=== PATIENT | male | born 1940 | race Caucasian/White ===

== ENCOUNTER 2020-04-05 06:34 | Day surgery (SDC) | payer MEDICARE, SELFPAY ==
[2020-04-05 07:00] VITALS: BP 145/65; PULSE 63; RESP 18; TEMP 36.5; O2SAT 100; BMI 26.7
[2020-04-05] MEDS: Lactated Ringers 1,000 ML 100 ML IV (07:10)
[2020-04-05] MEDS: Cefazolin 2 GM in 0.9% Normal Saline 100 ML IV (08:53)
--- NOTE | 2020-04-05 09:24 | HP.PCM_ITS ---
History of Present Illness Date of Admission: 04/05/20 Chief Complaint: Obstructing right ureteral calculi multiple right renal calculi The patient is a 80 year old male presents with obstructing stone today we will plan to proceed with right ureteroscopy laser lithotripsy and stent placement Past Medical History Allergies No Known Allergies Allergy (Verified 04/05/20 06:57) Home Medications: Ambulatory Orders Medication Instructions Recorded Ascorbic Acid [Vitamin C] 500 mg PO DAILY@0800 04/04/20 Aspirin [Aspirin EC] 81 mg PO DAILY 04/04/20 Ibuprofen [Motrin] 400 mg PO Q4H PRN PRN 04/04/20 Metoprolol(XL)Succ [Toprol Xl 25 mg PO QHS 04/04/20 (Beta Herve)] Omeprazole Magnesium [Acid Ordnance Technician] 20 mg PO DAILY 04/04/20 Simvastatin 10 mg PO QHS 04/04/20 Surgical History: no surgical history Smoking Status: Never smoker Tobacco Use: Non-smoker Review of Systems Constitutional: Denies: Chills, Fever, Weight Change HEENT: Denies: Head Aches, Sinus Congestion, Sinus Drainage Cardiovascular: Denies: Chest Pain, Palpitations Respiratory: Denies: Cough, Shortness of breath at rest, Sputum production Gastrointestinal: Denies: Abdominal Pain, Nausea, Vomiting Genitourinary: Denies: Dysuria Musculoskeletal: Denies: Joint Pain, Joint Tenderness Skin: Denies: Rash, Wounds Neurological: Denies: Numbness, Tingling, Focal weakness Psychiatric: Denies: Anxiety, Depression, Homicidal Ideations, Suicidal Ideations Hematologic/ Lymphatic: Denies: Easy Bruising, Easy Bleeding VTE Information - Inpt Only VTE Present on Admission: No - Physical Exam Vitals/I&O's: Vital Signs Temp Pulse Resp BP Pulse Ox 97.7 F L 63 18 145/65 H 100 04/05/20 07:00 04/05/20 07:00 04/05/20 07:00 04/05/20 07:00 04/05/20 07:00 Oxygen Delivery Method Room Air Weight: 77.5 kg Body Mass Index (BMI) 26.7 Intake and Output for Last 24 Hours 04/03/20 04/04/20 04/05/20 23:59 23:59 23:59 Intake Total 110 / 110 Balance 110 / 110 General: Alert, Oriented x3, Cooperative HEENT: Atraumatic, PERRLA, EOMI, Normocephalic Neck: Supple, No JVD, Negative Carotid Bruits Lungs: Clear to auscultation, Normal air movement Cardiovascular: Regular rate, No murmurs Abdomen: Bowel Sounds Present, Soft, Non Tender Extremities: No edema, Capillary Refill Less than 3 Seconds Skin: No rashes, No breakdown Musculoskeletal: No Tenderness to Palpation of Joints or Extremities Neurological: Cranial nerves II-XII grossly intact Psych/Mental Status: Normal Affect, Appropriate Laboratory Results 04/04/20 17:05: COVID-19 (ANJU) Negative Current Medications Lactated Ringer's () 1,000 mls @ 100 mls/hr IV .Q10H SMITH Last Admin: 04/05/20 07:10 Dose: 100 mls/hr Documented by: Assessment/Plan Plan for right ureteroscopy laser and stent placement
--- NOTE | 2020-04-05 09:25 | DCINST_ITS ---
Discharge Diet: Light diet - advance as tolerated Discharge Activity: Return to Normal Activity Call your doctor if your incision/area has: Sudden Increased Bleeding Suture Line Care: Avoid Pulling/Pushing, Avoid Pinching/Bending Instructions: Treating Kidney Stones: Ureteroscopic Stone Removal Allergies/Adverse Reactions: Allergies No Known Allergies Allergy (Verified 04/05/20 06:57) Medications to take at Discharge Ascorbic Acid [Vitamin C] 500 mg PO DAILY@0800 04/04/20 Aspirin [Aspirin EC] 81 mg PO DAILY 04/04/20 Ibuprofen [Motrin] 400 mg PO Q4H PRN PRN 04/04/20 Metoprolol(XL)Succ [Toprol Xl (Beta Herve)] 25 mg PO QHS 04/04/20 Omeprazole Magnesium [Acid Production Artist] 20 mg PO DAILY 04/04/20 Simvastatin 10 mg PO QHS 04/04/20 Primary Care Physician: Buddy Bull MD [Primary Care Provider] - Test Results: Test results from this visit will be discussed in further detail at your follow- up appointment, if applicable. Please Follow Up With: Jem Henriquez MD When: in 2 weeks, please call to make an appointment.
[2020-04-05 09:33] VITALS: BP 123/74; BP 145/65; PULSE 73; RESP 16; TEMP 36.6; O2SAT 95
--- NOTE | 2020-04-05 09:37 | PCM.OPRPT ---
Report of Operation Date of Procedure: 04/05/20 Pre-Operative Diagnosis: Right obstructing ureteral calculi multiple right renal calculi Post-Operative Diagnosis: The same Surgery/Procedure Performed:: Cystoscopy, balloon dilation of the right ureter, retrograde pyelogram interpretation fluoroscopic images, right ureteroscopy laser lithotripsy of stone and right stent placement Description of Surgical Findings:: 80-year-old male who I saw yesterday in the office for severe pain in the right side from obstructing stone was taken to surgery today to relieve the obstruction and place a stent also going to possibly try laser the stones if it is feasible. Patient was taken back to the operating room at the smooth induction of general anesthesia he was placed in dorsolithotomy position, penis and testicles are prepped and draped in usual sterile fashion, went into the bladder with a 21 [place]amese rigid cystourethroscope, the entire length the urethra was normal the prostate was normal no obstruction inside the bladder there are no tumors or stones the trigone was normal identified the right ureteral orifice and cannulated the wire up the right orifice I then advanced balloon dilator 15 Sur[place]amese 10 cm balloon dilator and dilated the distal right ureter. I then went in with a flexible ureteroscope up into the kidney as I went up there is a large stone that was in the proximal ureter pushed up into the kidney quite easily the ureter was quite tortuous in the proximal ureter and used a wire to manipulate my way through the ureter with and then once I got into the kidney there was a lot of debris and a lot of foul looking urine I was able to trap 1 of the stones in the upper pole the kidney lasered the stone little tiny pieces but he had several other stones in the calyces of the kidneys they are hard to reach so at this point with all the debris and difficulty with visualization because of the debris in the urine and chronic obstruction decided to leave a stent in her back down the ureter performed a retrograde pyelogram and then advance a wire up into the kidney and over the wire place a stent will leave the stent in the drain the kidney he will be on antibiotics and then will bring him back for shockwave lithotripsy to treat the remaining stone fragments. Type of Anesthesia:: General Drains: stent right. - Admit VTE Documentation VTE Present on Admission: No VTE Mechan Device Prophylaxis: SCD's
[2020-04-05] MEDS: Ketorolac 15 MG/ML Vial IV (09:44)
[2020-04-05 09:45] VITALS: BP 130/75; BP 145/65; PULSE 68; RESP 18; O2SAT 100
[2020-04-05 10:00] VITALS: BP 136/77; BP 145/65; PULSE 69; RESP 18; TEMP 36.7; O2SAT 100
[2020-04-05 11:46] VITALS: BP 145/65; BP 157/73; PULSE 60; RESP 16; TEMP 36.3; O2SAT 100
== END 2020-04-05 11:49 | disposition home or self-care (01) ==
LOC: SDC 06:41 → AC 06:42
PROVIDERS: Anesthesiology; PCP Family Medicine; Referring Provider Urology; Visit Provider Urology
PROC: 0TJ98ZZ Inspection of Ureter, Via Natural or Artificial Opening Endoscopic (ICD-10-PCS; CPT 52352; principal; 2020-04-05 08:40)
DX: N20.2 Calculus of kidney with calculus of ureter (principal); I25.10 Atherosclerotic heart disease of native coronary artery without angina pectoris; Z95.5 Presence of coronary angioplasty implant and graft; Z79.1 Long term (current) use of non-steroidal anti-inflammatories (NSAID); Z79.82 Long term (current) use of aspirin; Z87.442 Personal history of urinary calculi; I25.2 Old myocardial infarction; E78.00 Pure hypercholesterolemia, unspecified; K21.9 Gastro-esophageal reflux disease without esophagitis; Z11.59 Encounter for screening for other viral diseases
CPT/HCPCS: 00918; 52356; 76000; 87635; 94799; J7120; C1726; C2617; J2405; U0003

== ENCOUNTER 2020-04-17 08:11 | Day surgery (SDC) | payer MEDICARE, SELFPAY ==
--- NOTE | 2020-04-17 08:15 | RAD_ITS ---
STUDY: X-RAY - ABDOMEN/PELVIS REASON FOR EXAM: Male, 80 years old. Pre op TECHNIQUE: Single AP view of the abdomen / pelvis. COMPARISON: None. FINDINGS: The There is a moderate amount of colonic fecal material. A right-sided double-J stent catheter is in situ with the proximal tip in the right renal pelvis and distal tip in the right side of the urinary bladder. Multiple small bilateral intrarenal calculi. There is evidence of a 3 or 4 adjacent small calculi in the proximal right ureter. Normal soft tissue structures. There are degenerative changes of the visualized lumbar spine. RAD/Abdomen Single View IMPRESSION: Right-sided double-J stent catheter is in situ. 3-4 small calculi are seen in the proximal portion of the right ureter. Small bilateral nonobstructive intrarenal calculi. Electronically Signed: Delgado Rodríguez, at 9:01 EDT , Service support ,
[2020-04-17 08:43] VITALS: BP 147/81; PULSE 61; RESP 16; TEMP 36.1; O2SAT 99; BMI 31.6
[2020-04-17] MEDS: Lactated Ringers 1,000 ML 100 ML IV ×2 (08:43→12:15)
[2020-04-17] MEDS: Cefazolin 2 GM in 0.9% Normal Saline 100 ML IV (10:48)
--- NOTE | 2020-04-17 10:51 | HP.PCM_ITS ---
Problem List (1) Right ureteral calculus Status: Acute History of Present Illness Date of Admission: 04/17/20 Chief Complaint: Right ureteral calculi status post laser and stent The patient is a 80 year old male who presented to the hospital with obstructing stone in the proximal right ureter he underwent ureteroscopy and laser the stones really difficult to get to very hard stones at this point I just ended up placing a stent and now he comes back for shockwave lithotripsy of the obstructing stones and also has another stone in the kidney we will plan to treat. Past Medical History Allergies No Known Allergies Allergy (Verified 04/17/20 08:41) Home Medications: Ambulatory Orders Medication Instructions Recorded Ascorbic Acid [Vitamin C] 500 mg PO DAILY@0800 04/04/20 Aspirin [Aspirin EC] 81 mg PO DAILY 04/04/20 Ibuprofen [Motrin] 400 mg PO Q4H PRN PRN 04/04/20 Metoprolol(XL)Succ [Toprol Xl 25 mg PO QHS 04/04/20 (Beta Herve)] Omeprazole Magnesium [Acid Educational Resource Center Teacher] 20 mg PO DAILY 04/04/20 Simvastatin 10 mg PO QHS 04/04/20 Ciprofloxacin [Cipro] 500 mg PO DAILY 04/09/20 Surgical History: no surgical history Smoking Status: Never smoker Tobacco Use: Non-smoker Review of Systems Constitutional: Denies: Chills, Fever, Weight Change HEENT: Denies: Head Aches, Sinus Congestion, Sinus Drainage Cardiovascular: Denies: Chest Pain, Palpitations Respiratory: Denies: Cough, Shortness of breath at rest, Sputum production Gastrointestinal: Denies: Abdominal Pain, Nausea, Vomiting Genitourinary: Denies: Dysuria Musculoskeletal: Denies: Joint Pain, Joint Tenderness Skin: Denies: Rash, Wounds Neurological: Denies: Numbness, Tingling, Focal weakness Psychiatric: Denies: Anxiety, Depression, Homicidal Ideations, Suicidal Ideations Hematologic/ Lymphatic: Denies: Easy Bruising, Easy Bleeding VTE Information - Inpt Only VTE Present on Admission: No VTE Mechan Device Prophylaxis: SCD's Patient Problems: Active and Suspected Problems Right ureteral calculus (Acute) - Physical Exam Vitals/I&O's: Vital Signs Temp Pulse Resp BP Pulse Ox 96.9 F L 61 16 147/81 H 99 04/17/20 08:43 04/17/20 08:43 04/17/20 08:43 04/17/20 08:43 04/17/20 08:43 Oxygen Delivery Method Room Air Weight: 76.1 kg Body Mass Index (BMI) 31.6 General: Alert, Oriented x3, Cooperative HEENT: Atraumatic, PERRLA, EOMI, Normocephalic Neck: Supple, No JVD, Negative Carotid Bruits Lungs: Clear to auscultation, Normal air movement Cardiovascular: Regular rate, No murmurs Abdomen: Bowel Sounds Present, Soft, Non Tender Extremities: No edema, Capillary Refill Less than 3 Seconds Skin: No rashes, No breakdown Musculoskeletal: No Tenderness to Palpation of Joints or Extremities Neurological: Cranial nerves II-XII grossly intact Psych/Mental Status: Normal Affect, Appropriate Current Medications Cefazolin Sodium 2 gm/ Sodium (Chloride) 110 mls @ 150 mls/hr IV PREOP ONE Stop: 04/17/20 14:13 Lactated Ringer's () 1,000 mls @ 100 mls/hr IV .Q10H SMITH Last Admin: 04/17/20 08:43 Dose: 100 mls/hr Documented by: Assessment/Plan All Active Problems Right ureteral calculus (Acute) Plan to proceed with right shockwave lithotripsy will leave the stent in place for now.
--- NOTE | 2020-04-17 10:53 | DCINST_ITS ---
Discharge Diet: No Restrictions Discharge Activity: Return to Normal Activity, May Not Drive - for 2 days. Additional Activity Instructions:: Please be aware that pain medications may cause nausea. You should typically eat light foods as you take your pain medication. Pain medication may cause constipation, if this is a problem for you, please discuss with your doctor. Instructions: Shock Wave Lithotripsy Allergies/Adverse Reactions: Allergies No Known Allergies Allergy (Verified 04/17/20 08:41) Medications to take at Discharge Ascorbic Acid [Vitamin C] 500 mg PO DAILY@0800 04/04/20 Aspirin [Aspirin EC] 81 mg PO DAILY 04/04/20 Ibuprofen [Motrin] 400 mg PO Q4H PRN PRN 04/04/20 Metoprolol(XL)Succ [Toprol Xl (Beta Herve)] 25 mg PO QHS 04/04/20 Omeprazole Magnesium [Acid Section Beamer] 20 mg PO DAILY 04/04/20 Simvastatin 10 mg PO QHS 04/04/20 Ciprofloxacin [Cipro] 500 mg PO DAILY 04/09/20 Primary Care Physician: Buddy Bull MD [Primary Care Provider] - Test Results: Test results from this visit will be discussed in further detail at your follow- up appointment, if applicable. Please Follow Up With: Jem Henriquez MD When: in 2 weeks, please call to make an appointment.
--- NOTE | 2020-04-17 12:11 | OP.PCM_ITS ---
Problem List (1) Right ureteral calculus Status: Acute Report of Operation Date of Procedure: 04/17/20 Pre-Operative Diagnosis: Right proximal ureteral calculi status post stent Post-Operative Diagnosis: The same Surgery/Procedure Performed:: Right extracorporeal shockwave lithotripsy Description of Surgical Findings:: 80-year-old male who underwent a stent placement and treatment of stones in the kidney with a laser but however he still has significant fragments left today working to proceed with shockwave lithotripsy and treatment of the stones in the right kidney. He had a stent in place. Taken back to the operating room at the smooth induction of general anesthesia is placed prone on the table, we found the stones in the proximal ureter along the stent to the stones were treated with 4000 shockwaves at a rate of 60/min. We did have to gait the shockwaves because is causing ectopy on his heart rhythm. At the end of the treatment he could still see broken fragments along the course of the stent but I think the treatment successful we will plan to see him next week with an x-ray and pull the stent out and will plan to have them passed the remaining fragments after t he stent comes out. So we did a full treatment of 40,000 shockwaves at a rate of 90 the shockwaves had to be gated and we monitor the treatment with fluoroscopy. Patient did well has been currently reversed from anesthesia. Type of Anesthesia:: General Drains: stent right side - Admit VTE Documentation VTE Present on Admission: No VTE Mechan Device Prophylaxis: SCD's
[2020-04-17 12:21] VITALS: BP 140/75; BP 147/81; PULSE 75; RESP 14; TEMP 36.6; O2SAT 99
[2020-04-17 12:30] VITALS: BP 140/75; BP 147/81; PULSE 71; RESP 16; O2SAT 98
[2020-04-17 12:45] VITALS: BP 132/76; BP 147/81; PULSE 64; RESP 16; O2SAT 100
[2020-04-17 13:00] VITALS: BP 147/81; BP 149/76; PULSE 60; RESP 16; TEMP 36.4; O2SAT 100
[2020-04-17 13:44] VITALS: BP 147/81; BP 152/71; PULSE 66; RESP 16; TEMP 36.2; O2SAT 99
== END 2020-04-17 13:47 | disposition home or self-care (01) ==
LOC: SDC 08:12 → AC 08:14
PROVIDERS: Anesthesiology; PCP Family Medicine; Referring Provider Urology; Visit Provider Urology
PROC: (CPT 50590; principal; 2020-04-17 10:05)
DX: N20.2 Calculus of kidney with calculus of ureter (principal); Z79.1 Long term (current) use of non-steroidal anti-inflammatories (NSAID); Z79.82 Long term (current) use of aspirin
CPT/HCPCS: 50590; 74018; 87635; 94799; J7120; J2405; U0003

== ENCOUNTER → 2020-04-22 14:59 | Outpatient (CLI) | payer MEDICARE, SELFPAY ==
[2020-04-17 08:43] VITALS: BMI 31.6
--- NOTE | 2020-04-22 15:10 | RAD_ITS ---
STUDY: X-RAY - ABDOMEN/PELVIS REASON FOR EXAM: Male, 80 years old. kidney stones TECHNIQUE: Single AP view of the abdomen / pelvis. COMPARISON: 04/17/2020 FINDINGS: Stable appearance of a right J stent. Stable calcifications overlying both renal shadows. There is an unremarkable bowel gas pattern. There is no demonstrated free abdominal air. Previous cholecystectomy The visualized liver, spleen and kidneys are grossly normal in size and morphology. Normal soft tissue structures. Normal visualized osseous structures. RAD/Abdomen Single View IMPRESSION: No interval change Electronically Signed: Earl Breen MD at 15:53 EDT , Service support ,
== END ==
PROVIDERS: PCP Family Medicine; Referring Provider Urology; Visit Provider Urology
DX: N20.0 Calculus of kidney (principal)
CPT/HCPCS: 74018

== ENCOUNTER → 2020-05-23 10:22 | Outpatient (CLI) | payer MEDICARE, SELFPAY ==
--- NOTE | 2020-05-23 10:24 | RAD_ITS ---
STUDY: X-RAY - ABDOMEN/PELVIS REASON FOR EXAM: Male, 80 years old. FOLLOW UP KIDNEY STONES, HX OF RIGHT SIDED STENT x1 MONTH AGO TECHNIQUE: Single AP view of the abdomen / pelvis. COMPARISON: Comparison is made with prior study dated 04/22/2020. FINDINGS: Normal visualized lung bases. There is an unremarkable bowel gas pattern. The right double-J stent catheter has been removed. Stable 5.4 mm calculus in the lower pole calyx of the right kidney. Stable small bilateral intrarenal calculi. Normal soft tissue structures. There are diffuse degenerative changes of the visualized lumbar spine. RAD/Abdomen Single View IMPRESSION: Status post removal of the right double-J stent catheter. Stable bilateral intrarenal calculi. Electronically Signed: Delgado Rodríguez, at 15:50 EDT , Service support ,
== END ==
PROVIDERS: PCP Family Medicine; Referring Provider Urology; Visit Provider Urology
DX: N20.0 Calculus of kidney (principal)
CPT/HCPCS: 74018

== ENCOUNTER → 2020-09-18 18:04 | Outpatient (CLI) | payer MEDICARE, SELFPAY ==
[2020-09-18 14:01] VITALS: BMI 24.7
== END ==
PROVIDERS: PCP Family Medicine; Visit Provider Physician Assistant
DX: R43.8 Other disturbances of smell and taste (principal)
CPT/HCPCS: 87635; U0005; U0003

== ENCOUNTER → 2020-11-21 09:37 | Outpatient (CLI) | payer MEDICARE, SELFPAY ==
[2020-10-17 08:40] VITALS: BMI 24.7
--- NOTE | 2020-11-21 10:00 | RAD_ITS ---
STUDY: X-RAY - ABDOMEN/PELVIS REASON FOR EXAM: Male, 80 years old. CALCULUS OF KIDNEY TECHNIQUE: Single AP view of the abdomen / pelvis. COMPARISON: 05/23/2020 FINDINGS: Status post cholecystectomy. There is an unremarkable bowel gas pattern. Multiple small calcific opacities overlying both kidneys consistent with bilateral renal stones. No definite ureteral stone. The visualized liver, spleen and kidneys are grossly normal in size and morphology. Normal soft tissue structures. Normal visualized osseous structures. RAD/Abdomen Single View IMPRESSION: Multiple bilateral renal stones. Electronically Signed: Maxwell Rosa MD at 16:51 EDT Tel , Service support ,
== END ==
PROVIDERS: PCP Family Medicine; Visit Provider Urology
DX: N20.0 Calculus of kidney (principal)
CPT/HCPCS: 74018

== ENCOUNTER → 2021-01-30 14:28 | Outpatient (CLI) | payer MEDICARE, SELFPAY ==
[2020-10-17 08:40] VITALS: BMI 24.7
--- NOTE | 2021-01-30 14:49 | RAD_ITS ---
STUDY: X-RAY - ABDOMEN/PELVIS REASON FOR EXAM: Male, 80 years old. CHECKING FOR CALCULUS OF THE KIDNEYS. PT IS HAVING LEFT SIDE FLANK PAIN. HX OF KIDNEY STONES AND HAS HAD MULTIPLE SURGERIES AND STENT PLACEMENTS FOR THIS ISSUE WELL. TECHNIQUE: Frontal views COMPARISON: None. FINDINGS: Normal visualized lung bases. There is an unremarkable bowel gas pattern. There is no demonstrated free abdominal air. Surgical clips in the right upper quadrant. There are right renal calculi up to 4 mm. Left renal calculi up to 2 mm. Questionable left ureteral stone at the level L3 measuring approximately 4 mm. Normal soft tissue structures. Normal visualized osseous structures. RAD/Abdomen Single View IMPRESSION: Bilateral renal calculi. Possible left mid ureteral stone. Electronically Signed: Bogdan Bryant DO at 17:00 EDT Tel [phone], Service support ,
== END ==
PROVIDERS: PCP Family Medicine; Referring Provider Nurse Practitioner Adult Health; Visit Provider Nurse Practitioner Adult Health
DX: N20.0 Calculus of kidney (principal)
CPT/HCPCS: 74018

== ENCOUNTER 2021-02-05 12:20 | Day surgery (SDC) | payer MEDICARE, SELFPAY ==
[2020-10-17 08:40] VITALS: BMI 24.7
[2021-02-05] VITALS (7 sets, daily range): BP systolic 132–189; BP diastolic 69–83; PULSE 57–67; RESP 16–18; TEMP 35.8–37.4; O2SAT 98–100; BMI 23.8
[2021-02-05] MEDS: Lactated Ringers 1,000 ML 100 ML IV (12:55)
--- NOTE | 2021-02-05 15:00 | PCM.HP.STD ---
HPI - General HPI Narrative STALIN MATA, is a 80 M who presents for treatment of left ureteral calculi that the mid left ureter plan to place a stent and then will shock the stone also some stones the left kidney he does have some stones in the right kidney but I told the patient that were no only treating 1 stone at the time one side of the time so would not treat the stones in the right side. Plan for left ESWL and left stent placement. PFSH Medical History Blackout Cardiology follow-up encounter Easy bruising Excessive bleeding Fatigue Gastric reflux Heart disease High cholesterol History of carotid artery disease History of heart attack History of irregular heartbeat History of kidney stones History of stress test Leg cramps Non-smoker Home Medications ascorbic acid (vitamin C) 500 mg PO DAILY@0800 04/04/20 [History Last Taken 02/05/21 08:30] aspirin 81 mg PO DAILY 04/04/20 [History Last Taken 01/30/21 08:30] omeprazole magnesium 20 mg PO DAILY 04/04/20 [History Last Taken 02/05/21 08:30] cholecalciferol (vitamin D3) 10 mcg (400 unit) capsule 10 mcg PO DAILY 09/18/20 [History Last Taken 02/05/21 08:30] metoprolol succinate 25 mg tablet,extended release 24 hr 25 mg PO QHS 09/18/20 [History Last Taken 02/04/21 23:00] simvastatin 5 mg tablet 5 mg PO QHS tab 09/18/20 [History Last Taken 02/04/21 23:00] ciprofloxacin HCl [Cipro] 500 mg PO BID #10 tab 02/05/21 [Rx Last Taken Unknown] oxycodone-acetaminophen [Percocet] 1 tab PO Q4H PRN 7 Days #10 tab 02/05/21 [Rx Last Taken Unknown] Allergy/AdvReac Type Severity Reaction Status Date / Time No Known Allergies Allergy Verified 02/05/21 13:03 Surgical History (Updated 01/31/21 @ 09:35 by Stefany Whaley) History of cataract surgery History of cholecystectomy History of heart artery stent History of heart bypass surgery History of tonsillectomy Social History (Updated 10/16/20 @ 15:39 by Buddy LOZA, PA) Smoking Status: Never smoker alcohol intake: never ROS Constitutional Constitutional: Denies chills, fever(s) or malaise Eyes Eyes: Denies blurry vision or change in vision ENT HEENT: Reports none Cardiovascular Cardiovascular: Denies chest pain or palpitations Respiratory/Chest Respiratory/Chest: Denies cough or shortness of breath with exertion Gastrointestinal Gastrointestinal: Denies abdominal pain, constipation or diarrhea Musculoskeletal Musculoskeletal: Denies back pain, joint stiffness or joint swelling Integumentary Integumentary: Denies dry skin, jaundice, lesions or rash Neurologic Neurologic: Denies confusion, syncope or weakness Psychiatric Psychiatric: Reports none; Denies anxiety or depression Endocrine Endocrinology: Denies excessive sweating, fatigue or flushing Hematologic/Lymphatic Hematologic/Lymphatic: Denies anemia, easy bleeding or easy bruising Vital Signs Vital Signs Vital Signs: 02/05/21 12:55 Temperature 97.5 F L Temperature Source Temporal Pulse Rate 57 L Respiratory Rate 18 Respiratory Pattern Normal Blood Pressure 149/72 H Blood Pressure Mean 97 Blood Pressure Source Monitor Blood Pressure Position Sitting Blood Pressure Location Right Arm Pulse Ox 100 Oxygen Delivery Method Room Air Weight Weight: 71 kg Body Mass Index (BMI) 23.8 Physical Exam Const alert and oriented x3 General Appearance: cooperative HEENT normocephalic, head/scalp atraumatic, EAC's normal and TM's normal bilaterally Eyes PERRL and EOMs intact bilaterally Pupil: sluggish Neck no lymphadenopathy, supple and no JVD General: trachea midline Lymph Lymphatic: no lymphadenopathy noted, lymphedema and lymphadenopathy Resp normal respiratory effort, normal air movement and clear to auscultation bilaterally Cardio regular rate, regular rhythm and peripheral pulses 2+ throughout GI soft to palpation, non-tender and non-distended Extremity normal capillary refill and no clubbing, cyanosis or edema General Extremity: no tenderness to palpation of joints or extremities Skin no rashes or lesions noted General Skin Exam: turgor normal Lesions: no lesions Rashes: no rashes Neuro CN's II-XII intact bilaterally Speech: speech normal Motor Exam: strength 5/5 throughout; Negative for general weakness Psych thought process normal, cooperative and affect normal Appearance: appropriate Lab / Micro Data Micro: Microbiology 02/04/21 09:55 SARS-CoV-2 Antigen (Rapid) - Final Interface Orders Assessment & Plan Assessment/Plan (1) Left ureteral calculus: PLAN: Plan for left ESWL a stent placement
--- NOTE | 2021-02-05 15:02 | PCM.DC ---
Discharge Instructions Diet Discharge Diet: No restrictions Activity Discharge Activity: May Not Drive (for 3 days while taking narcotic pain medications.) Additional Activity Instructions:: in offloading shoe Dressing / Incision Call your doctor if your incision/area has: Continuous Slow Oozing, Increased Pain/ Swelling, Increased Redness and Foul Smelling Discharge Call your doctor if you observe: Fever of 101 or Higher, Numbness or Tingling, Shortness of breath, Dizziness, Calf discomfort and Uncontrolled pain Follow Up Care Please Follow Up With: Jem Henriquez MD Test Results: Test results from this visit will be discussed in further detail at your follow-up appointment, if applicable. Discharge Plan Admission Primary Reason for Your Visit: Shockwave lithotriopsy left side and stent Attending Provider: Jem Henriquez Primary Care Provider: Buddy Bull Discharge Orders/Prescriptions Prescriptions: New oxycodone-acetaminophen [Percocet] 5-325 mg tablet 1 tab PO Q4H PRN (Reason: pain) 7 Days Qty: 10 RF: 0 ciprofloxacin HCl [Cipro] 500 mg tablet 500 mg PO BID Qty: 10 RF: 0 Continued simvastatin 5 mg tablet 5 mg PO QHS RF: 0 cholecalciferol (vitamin D3) 10 mcg (400 unit) capsule 10 mcg PO DAILY RF: 0 ascorbic acid (vitamin C) 500 MG tablet 500 mg PO DAILY@0800 RF: 0 omeprazole magnesium 20 MG capsule,delayed release(DR/EC) 20 mg PO DAILY RF: 0 metoprolol succinate 25 mg tablet extended release 24 hr 25 mg PO QHS RF: 0 Held aspirin 81 MG tablet,delayed release (DR/EC) 81 mg PO DAILY RF: 0 Hold Instructions: Resume on 02/07/21. Referrals / Follow Up: Jem Henriquez MD [STAFF PHYSICIAN] - Buddy Bull MD [Primary Care Provider] - Disposition Discharge Orders: Discharge Patient (Routine); Ordered 02/05/21 Ordered By: Dr. Jem Henriquez
[2021-02-05] MEDS: Cefazolin 2 GM in 0.9% Normal Saline 100 ML IV (15:04)
[2021-02-05] MEDS: Ondansetron 4 MG/2 ML Vial IV (16:00)
--- NOTE | 2021-02-05 16:01 | OP.PCM_ITS ---
Report of Operation Date of Procedure: 02/05/21 Pre-Operative Diagnosis: Left renal calculi Post-Operative Diagnosis: Same Surgery/Procedure Performed:: Cystoscopy left stent placement and left ESWL Description of Surgical Findings:: Patient presents to the hospital for treatment of a kidney stone with shockwave lithotripsy. In the preoperative area and x-ray was done to confirm the location of the stone. The x-ray was reviewed and the stone location was reviewed. In the preoperative setting I spoke with the patient regarding the treatment of the stone how the treatment would be conducted and the expectations after surgery. The patient understands there is a risk of bleeding and infection. Also discussed the very rare risk of hematoma or damage to the kidney. We also discussed the risk that the shockwave machine will fail to break the stone adequately and that the patient may need other surgical procedures. We also discussed the possibility that the patient may need a stent after the procedure. After reviewing the procedure with the patient, the patient is signed the consent form all the patient's questions were addressed and was taken back to the operating room for treatment of a kidney stone. Patient was taken back to the operating room, patient was identified by the nursing staff, we identified the side of the treatment and the patient side of treatment had been marked by my initials. The patient underwent general anesthetic and was placed supine on the lithotripter table. We then used fluoroscopy to identify the stone on the left side. Using a 21 Pakistani rigid cystourethroscope the entire length of the urethra was normal then went into the bladder. Identified the trigone the left and right ureteral orifice. I then cannulated the left orifice and advanced a wire up into the kidney. I then backloaded a 5 Pakistani open ended catheter over the wire and injected contrast to delineate the anatomy. After the retrograde was performed I then used fluoroscopic images and guidance to advanced a wire up into the kidney and over the 0.038 glidewire I advanced a 6 Pakistani by 26 cm double pigtail stent. I then pulled the 0.038 Glidewire off and the stent coiled in the kidney bladder good position. The bladder was then drained. We confirmed the position of the stent by fluoroscopy. We then positioned the patient under the lithotripter and we used triangulation technique to identify the location of the stone and then we made sure that the stone was engaged in the F2 focal point of F2 Donier lithoprior machine. Once the patient was positioned appropriately and the stone was identified and placed in the F2 focal point of the lithotripter machine we then proceeded with shockwave lithotripsy. In the beginning the shockwave was delivered at a rate of 90 shocks per minute, we monitor the EKG for any ectopy. The power was slowly increased to 5 kV and subsequently at the 7 kV. We then proceeded with the treatment we move the therapy had around during the treatment to make sure the stone stayed in the F2 focal point during the entire treatment and after 3000 shockwaves were delivered to the stone under fluoroscopic guidance the treatment was completed. The patient was given instructions to call the office to make an a follow-up appointment with an xray to evaluate the success of the treatment, pateint understands that its possible the stones may need another procedure.At this point the patient's anesthetic was reversed patient was extubated and taken back to the PACU in stable condition. Type of Anesthesia: General Drains: left stent Admit VTE Documentation VTE Present on Admission: No VTE Mechan Device Prophylaxis: SCD's
[2021-02-05] MEDS: Acetaminophen 325 MG Tablet 650 MG PO (17:15)
[2021-02-05] MEDS: oxyCODONE 5 MG Tablet PO (17:15)
== END 2021-02-05 18:16 | disposition home or self-care (01) ==
LOC: SDC 12:20 → AC 12:21
PROVIDERS: PCP Family Medicine; Referring Provider Urology; Visit Provider Urology
PROC: (CPT 50590; principal; 2021-02-05 13:35)
DX: N20.1 Calculus of ureter (principal); E78.00 Pure hypercholesterolemia, unspecified; Z87.442 Personal history of urinary calculi; Z90.49 Acquired absence of other specified parts of digestive tract
CPT/HCPCS: 50590; 52332; 87426; C9803; J7120; C2617; J2405

== ENCOUNTER → 2021-02-10 14:37 | Outpatient (CLI) | payer MEDICARE, SELFPAY ==
[2021-02-05 12:55] VITALS: BMI 23.8
--- NOTE | 2021-02-10 14:40 | RAD_ITS ---
STUDY: X-RAY - ABDOMEN/PELVIS REASON FOR EXAM: Male, 80 years old. Ureteral calculi. TECHNIQUE: Single AP view of the abdomen / pelvis. COMPARISON: 01/30/2021 FINDINGS: Normal visualized lung bases. There is an unremarkable bowel gas pattern. There is no demonstrated free abdominal air. Multiple calcifications projected over both renal shadows. Ureteral stent with upper aspect projected adjacent to the left transverse process of L1 and the lower aspect projected over the bladder. Surgical clips in the left upper quadrant, right upper quadrant and pelvis. Normal visualized osseous structures. RAD/Abdomen Single View IMPRESSION: Ureteral stent. Multiple calcifications projected over both renal shadows. No acute finding. Electronically Signed: Timi Rider MD at 10:25 EDT , Service support ,
== END ==
PROVIDERS: PCP Family Medicine; Referring Provider Nurse Practitioner Adult Health; Visit Provider Nurse Practitioner Adult Health
DX: N20.1 Calculus of ureter (principal)
CPT/HCPCS: 74018

== ENCOUNTER 2021-12-22 09:53 | Outpatient (CLI) | payer MEDICARE, SELFPAY ==
--- NOTE | 2021-12-22 09:57 | RAD_ITS ---
INDICATION: CALCULUS OF KIDNEY EXAMINATION/TECHNIQUE: X-RAY - XR Abdomen 1 View COMPARISON: 01/30/2021. FINDINGS: Left double-J ureteral stent is seen in position. BOWEL GAS PATTERN: Non-obstructive. No bowel or stomach distention. FREE AIR: Not assessed on a single supine view. ORGANOMEGALY: Not seen. CALCIFICATIONS: 2 calcifications visualized superimposed over the right renal bed the largest of which measures 0.6 cm visualized superimposed over the lower pole of the right kidney. 2 calcifications visualized superimposed over the lower pole of the left kidney, the largest of which measures 0.3 cm. LOWER CHEST: No acute pathology. BONES AND SOFT TISSUES: No acute pathology. RAD/Abdomen Single View IMPRESSION: Bilateral renal calcifications. Left double-J ureteral stent seen in position. Electronically Signed: Bernardino Salomon MD at 11:20 EDT ,
== END 2021-12-22 23:59 | disposition home or self-care (01) ==
LOC: RAD 09:56
PROVIDERS: PCP Family Medicine; Referring Provider Urology; Visit Provider Urology
DX: N20.0 Calculus of kidney (principal)
CPT/HCPCS: 74018

== ENCOUNTER → 2022-12-15 | Outpatient (CLI) | payer MEDICARE, SELFPAY ==
--- NOTE | 2022-12-15 10:00 | CDU_ITS ---
Reason For Study: Stenosis Rt. Velocities/BP Lt. Velocities/BP Prox CCA 95.7/15.4 cm/sec. Prox CCA 72.1/19.3 cm/sec. Mid CCA 80.6/16.3 cm/sec. Mid CCA 49.4/15.4 cm/sec. Dist CCA 81.5/20.1 cm/sec. Dist CCA 53.7/18.0 cm/sec. Prox ICA 37.4/14.8 cm/sec. Prox ICA 262.8/63.1 cm/sec. Mid ICA 74.0/23.4 cm/sec. Mid ICA 69.1/19.6 cm/sec. Dist ICA 75.8/28.3 cm/sec. Dist ICA 50.3/23.2 cm/sec. Rt. ICA/CCA = 0.9. Lt. ICA/CCA = 5.3. Prox ECA 93.8/8.8 cm/sec. Prox ECA 119.8/8.4 cm/sec. Rt. Vert. 49.3/16.3 cm/sec. Lt. Vert. 44.6/14.7 cm/sec. Right Extracranial There is homogeneous, smooth atherosclerotic plaque noted in the right common carotid artery. There is intimal thickening but no significant atherosclerotic plaque noted in the right internal carotid artery. There is homogeneous, smooth atherosclerotic plaque noted in the right external carotid artery. Antegrade flow is noted in the right vertebral artery. Left Extracranial There is homogeneous, smooth atherosclerotic plaque noted in the left common carotid artery. There is heterogeneous, irregular atherosclerotic plaque noted in the left internal carotid artery. The atherosclerotic plaque causes acoustic shadowing. There is heterogeneous, irregular atherosclerotic plaque noted in the left external carotid artery. Antegrade flow is noted in the left vertebral artery. Procedure Carotid Duplex 40502. This is a Carotid Duplex examination using B-mode, color flow and specral Doppler. The exam was diagnostic. Exam performed in department. VL/Carotid Duplex Ultrasound Interpretation Summary Normal right extracranial internal carotid. Severe (>70%) stenosis left extracranial internal carotid. Patent and antegrade vertebrals bilaterally. Ordering Physician: Tejal Hendrickson Referring Physician: Buddy Bull Performed By: Vahe Toney RVT
== END | disposition home or self-care (01) ==
LOC: CVS 09:59
PROVIDERS: PCP Family Medicine; Referring Provider Physician Assistant; Visit Provider Physician Assistant
DX: I65.23 Occlusion and stenosis of bilateral carotid arteries (principal)
CPT/HCPCS: 93880

== ENCOUNTER 2023-01-06 05:56 | Inpatient (IN) | payer MEDICARE, SELFPAY ==
--- NOTE | 2022-12-31 11:02 | EKG12_ITS ---
Test Reason : PRE OP Blood Pressure : / mmHG Vent. Rate : 065 BPM Atrial Rate : 065 BPM P-R Int : 142 ms QRS Dur : 116 ms QT Int : 436 ms P-R-T Axes : 063 077 082 degrees QTc Int : 453 ms Normal sinus rhythm Normal ECG Confirmed by EDUARDA LINDO, ROSENDO ([id number]), slot editor FRANSISCA CORCORAN ([id number]) on 01/01/2023 8:16:12 AM Referred By: ERIC Confirmed By:ROSENDO LERNER MD
[2022-12-31 11:27] LABS: Hematocrit 44.5 % (40-54); Hemoglobin 14.6 g/dL (13.0-16.5); Mean Corp Hgb Conc 32.8 g/dL (32-36); Mean Corpuscular Hgb 30.4 pg (27.0-32.0); Mean Corpuscular Volume 92.7 fL (80-94); Mean Platelet Vol. 10.2 fl (6.2-12.0); Platelet Count 210 K/mm3 (150-450); RBC Distribution Width CV 12.5 % (11.6-14.6); RBC Distribution Width SD 42.7 fl (35.1-43.9); White Blood Count 7.4 K/mm3 (4.4-11.0)
[2022-12-31 12:03] LABS: Anion Gap 3 (5-15); BUN 11 mg/dL (7-18); BUN/Creat Ratio 8.9 RATIO (10-20); Calcium,Total 9.2 mg/dL (8.5-10.1); Chloride 106 mmol/L (98-107); Creatinine, Serum 1.23 mg/dL (0.70-1.30); EST Glomerular Filtration Rate 60 mL/min (>60); Est Glom Filt Rate - Afr Amer 72 mL/min (>60); Glucose 79 mg/dL (74-106); Potassium 4.1 mmol/L (3.5-5.1); Sodium Level 136 mmol/L (136-145)
[2023-01-06] VITALS (22 sets, daily range): BP systolic 99–135; BP diastolic 47–76; PULSE 55–80; RESP 11–19; TEMP 36.1–36.9; O2SAT 94–100; BMI 25.2; BMI 24.8; BMI 24.7
[2023-01-06] MEDS: Lactated Ringers 1,000 ML 15 ML IV (06:35)
--- NOTE | 2023-01-06 07:25 | PCM.HP.BLA ---
History and Physical Allergies No Known Allergies Allergy (Verified 02/05/21 13:03) Medications ascorbic acid (vitamin C) 500 mg tablet 500 mg PO DAILY@0800 supplement 04/04/20 [History Confirmed 12/08/22] aspirin 81 mg tablet,delayed release 81 mg PO DAILY 04/04/20 [History Confirmed 12/08/22] omeprazole magnesium 20 mg capsule,delayed release 20 mg PO DAILY GERD 04/04/20 [History Confirmed 12/08/22] cholecalciferol (vitamin D3) 10 mcg (400 unit) capsule 10 mcg PO DAILY supplement 09/18/20 [History Confirmed 12/08/22] metoprolol succinate 25 mg tablet,extended release 24 hr 25 mg PO QHS heart 09/18/20 [History Confirmed 12/08/22] simvastatin 5 mg tablet 5 mg PO QHS cholesterol 09/18/20 [History Confirmed 12/08/22] amoxicillin 500 mg capsule 500 mg PO TID 10 days #30 caps 12/09/22 [Rx Confirmed 12/09/22] tobramycin 0.3 % eye drops 1 drp ophthalmic (eye) Q2H #5 mL 12/09/22 [Rx Confirmed 12/09/22] PFSH Medical History Acute conjunctivitis of both eyes Acute otitis media, left Acute sinusitis Blackout Cardiology follow-up encounter Easy bruising Excessive bleeding Fatigue Gastric reflux Heart disease High cholesterol History of carotid artery disease History of heart attack History of irregular heartbeat History of kidney stones History of stress test Impacted cerumen of both ears Leg cramps Non-smoker Surgical History? History of cataract surgery History of cholecystectomy History of heart artery stent History of heart bypass surgery History of tonsillectomy Social History? Smoking Status:? Never smoker alcohol intake:? never HPI HPI HPI: STALIN MATA, is a 82 M who presents to the office today for evaluation of left carotid artery stenosis. Has been followed by grocery store associate at outside facility where he has had all of his imaging. Most recent CTA with near total occlusion of distal CCA at bifurcation. Images not currently available. He has followed with CT for several years with imaging prior to this reported as 60%. He denies numbness/weakness/vision loss/speech difficulty. Currently on ASA. Prior PCI for NH in 2003 with later CABG a few years later. No chest pain or SOB with exertion. Is interested in establishing care with cardiology here in [place]. ROS General General: No weight change, appetite, fatigue, colon cancer, breast cancer or weakness HEENT HEENT: Yes eye surgery; No difficulty swallowing, eye injury, swollen glands or hoarseness Additional Details: cataract surgery 2003- Endo Endocrine: No thyroid disease, diabetes mellitus, thyroid cancer, Hair loss, heat intolerance or cold intolerance Skin Skin: No rash or changing moles Musc Musculoskeletal: No back problems, arthritis, rheumatoid arthritis, gout or joint pain Cardio Cardiovascular: Yes heart disease, heart attack and heart stent; No murmur, pacemaker, atrial fibrillation, high blood pressure, palpitations, shortness of breat with exertion or chest pain Psych Psychiatric: No depression, anxiety or hearing voices Resp Respiratory: No shortness of breath, No sleep apnea, No cough, No COPD, No asthma, No emphysema and No wheezing Gastro Gastrointestinal: No abdominal pain, No nausea or vomiting, No diarrhea, No constipation, No blood in stool, Yes acid reflux, Yes hemorrhoids, No ulcers and No black,tarry stools Yousif Hematologic: Yes blood thinners, No blood disorders, No bleeding, No anemia and No blood clots Neuro Neurologic: No system reviewed and no additional complaints, except as documented, No as per HPI, No abnormal gait, No abnormal hearing, No abnormal movements, No abnormal speech, No behavioral changes, No burning sensations, No confusion, No convulsions, No disequilibrium, No dizziness, No localized weakness, No frequent falls, No headache(s), No lack of coordination, No loss of vision, No memory loss, No numbness, No other visual disturbances, No radicular pain, No restless legs, No sensory deficit, No syncope, No tingling, No tremor(s), No weakness and No other Exam Const General: cooperative, healthy appearing, comfortable, no acute distress and well developed Nutritional Appearance: well nourished Orientation: alert, awake and oriented x3 HENMT Head: normocephalic and atraumatic Ears: hearing grossly normal bilaterally Nose: external nose normal Eyes General: appearance normal, both eyes and all related structures EOM: EOM intact bilaterally Neck Neck: normal visual inspection, full ROM, no lymphadenopathy and trachea midline Thyroid: thyroid normal Lymphatic: no lymphadenopathy noted Resp Effort & Inspection: normal respiratory effort, able to speak in complete sentences, symmetric chest movement, no audible wheezes, not labored, no stridor and no use of accessory muscles Cardio Rate: regular rate Rhythm: regular rhythm Pulses: brachial pulses present and radial pulses present Skin General: no rashes or lesions noted and no erythema Wounds: no wounds Neuro Cranial Nerves: CN's II-XI intact bilaterally and EOM intact bilaterally Speech: speech normal Gait: normal gait Motor: strength 5/5 throughout Sensory Exam: no sensory deficits noted Psych Appearance: grossly normal and well kempt Mental Status: mental status grossly normal Mood: congruent mood Speech and Movement: speech and movement normal Thought Content: normal Judgment: judgment good Coding Level of Care Code Off vis,new,level 4 Diagnoses Left carotid artery stenosis? I65.22 Assessment and Plan Assessment and Plan (1) Left carotid artery stenosis: -left TCAR
[2023-01-06] MEDS: Cefazolin 2 GM in 0.9% Normal Saline 100 ML IV (07:45)
--- NOTE | 2023-01-06 09:54 | OP.PCM_ITS ---
Report of Operation Date of Procedure: 01/06/23 Pre-Operative Diagnosis: left carotid stenosis Post-Operative Diagnosis: same Surgery/Procedure Performed:: left carotid stent Surgeon: Pedro Ruiz Type of Anesthesia: General Drains: 19 Fr LAWANDA Estimated Blood Loss (mL): 50 Description of Procedure: HPI: Patient is an 82-year-old male with a symptomatic left carotid artery stenosis which was followed with serial imaging. Most recent CTA at outside facility revealed significant worsening in the interval since his last imaging and he is referred now for treatment. He had anatomy that was felt to be appropriate for transcarotid artery stenting and a lesion that was minimally calcified. He presents now for elective transcarotid artery revascularization. Description of procedure: Upon obtaining informed consent and verification correct patient procedure site the patient was taken to [facility] where he was placed under general anesthesia. He was then positioned prepped and draped in usual sterile fashion a timeout was performed. Transverse incision was made superior to the left clavicle and Bovie electrocautery used to dissect down t hrough subcutaneous tissue to the level of platysma. The platysma was divided and self-retaining retractors put in position and further dissection carried down to the sternocleidomastoid. The common carotid artery had a very superficial and medial course so the sternocleidomastoid was retracted laterally exposing the carotid sheath. Sharp dissection was then used to dissect free the internal jugular vein which was also retracted laterally exposing the common carotid artery. Sharp dissection used to dissect free the proximal common carotid artery with care taken to identify and protect the vagus nerve. A right angle was used to place a vessel loop around the proximal common carotid artery and a 5-0 Prolene pursestring suture placed in the proximal vessel at the intended site of access. Patient was then heparinized allowed to circulate for 3 minutes after which an ACT was performed and further heparin dosing adjustments based on results. Ultrasound guidance the right common femoral vein was accessed in retrograde fashion with a micropuncture needle wire which was then exchanged for micropuncture sheath. Through the micropuncture sheath the idiagson wire is advanced and the micropuncture sheath exchanged out for the [address] flow reversal sheath. Next to the left common carotid artery was accessed in antegrade fashion with a micropuncture needle wire which was then exchanged out for micropuncture sheath. Through the micropuncture sheath hand-injection carotid angiogram was performed which confirmed position to find the location of the carotid lesion. Through the micropuncture sheath the silk [address] starter wire was advanced micropuncture sheath exchanged for the flow reversal sheath. This was then attached to the conduit through the filtration system and into the femoral vein sheath. Oblique view subtraction angiography was performed to confirm satisfactory sheath placement and positioning relative to the wall of the vessel. Next the proximal common carotid artery was occluded with an atraumatic clamp and continued flow reversal was demonstrated via the filtration system. Next a 014 wire used to navigate the carotid lesion traversing into the internal carotid artery. A [employer] aviator 6 x 15 angioplasty balloon was then advanced in the position centered on the lesion and then inflated to nominal and then deflated. Next a [address] en route stent 9 x 30 was advanced in the position and deployed. Completion angiography revealed satisfactory stent placement with resolution of the stenosis with no extravasation or dissection and no residual stenosis. The flow reversal system was then detached and the venous sheath withdrawn followed by 5 minutes of manual pressure with satisfactory hemostasis. The common carotid arter clamp was then release and the 8 Nigerian sheath withdrawn after which the pursestring suture was secured with satisfactory stasis noted. The patient was then reversed with protamine and the incision inspected for hemostasis. A 19 [place] [address] LAWANDA was then placed via separate stab incision and incision closed with 3-0 Vicryl followed by 4 Monocryl and at the conclusion the case the patient was awakened anesthesia moving all extremities to command at which point he was taken to the intensive care unit for hemodynamic and neurologic monitoring. Grafts/Implants Used: 9 x 30 EnRoute stent
[2023-01-06] MEDS: 0.45% Normal Saline 1,000 ML 75 ML IV (11:15)
[2023-01-06] MEDS: oxyCODONE 5 MG Tablet PO (11:27)
[2023-01-06 11:45] LABS: ACT Activated Clotting Time 299 sec (74-137)
[2023-01-06] MEDS: Acetaminophen 500 MG Tablet 1000 MG PO ×2 (13:48→21:21)
[2023-01-06] MEDS: Cefazolin 1 GM/50 ML BAG IV (17:21)
[2023-01-06] MEDS: TICAGRELOR 90 MG TABLET PO (21:20)
[2023-01-06] MEDS: Atorvastatin Calcium 10 MG Tablet 5 MG PO (21:20)
[2023-01-07] VITALS (15 sets, daily range): BP systolic 81–121; BP diastolic 47–62; PULSE 50–65; RESP 11–18; TEMP 36.4–36.8; O2SAT 9–100; BMI 24.7
[2023-01-07] MEDS: Cefazolin 1 GM/50 ML BAG IV (00:23)
[2023-01-07] MEDS: 0.45% Normal Saline 1,000 ML 75 ML IV (00:24)
[2023-01-07 03:58] LABS: Absolute Lymphocyte Count 1.53 X10^3/uL (0.83-4.51); Basophil# 0.03 X10^3/uL; Basophil% 0.4 % (0-1); Eosinophil# 0.15 X10^3/uL; Hematocrit 37.5 % (40-54); Hemoglobin 12.5 g/dL (13.0-16.5); Lymphocyte # 1.53 X10^3/ul (0.83-4.51); Lymphocyte % 20.5 % (19-41); Mean Corp Hgb Conc 33.3 g/dL (32-36); Mean Corpuscular Hgb 30.2 pg (27.0-32.0); Mean Corpuscular Volume 90.6 fL (80-94); Mean Platelet Vol. 10.5 fl (6.2-12.0); Monocyte# 0.68 X10^3/uL; Monocyte% 9.1 % (0-10); NRBC Flagged by Analyzer 0 % (0-5); Neutrophil % 66.8 % (47-70); Platelet Count 178 K/mm3 (150-450); RBC Distribution Width CV 12.7 % (11.6-14.6); RBC Distribution Width SD 41.9 fl (35.1-43.9); Red Blood Count 4.14 M/mm3 (4.6-6.2); White Blood Count 7.5 K/mm3 (4.4-11.0)
[2023-01-07] MEDS: Acetaminophen 500 MG Tablet 1000 MG PO (05:34)
[2023-01-07] MEDS: Pantoprazole Sodium 20 MG Tablet PO (09:07)
[2023-01-07] MEDS: Enoxaparin 40 MG/0.4 ML Syringe SC (09:07)
[2023-01-07] MEDS: TICAGRELOR 90 MG TABLET PO (09:07)
[2023-01-07] MEDS: Aspirin E.C. 81 MG Tablet PO (09:07)
[2023-01-07] MEDS: Cholecalciferol (Vit D3) 125 MCG CAPSULE (5,000 UNITS) PO (09:07)
[2023-01-07] MEDS: Ascorbic Acid 500 MG Tablet 1000 MG PO (09:08)
--- NOTE | 2023-01-07 12:28 | PCM.DC.SUM ---
Providers Date of Admission: 01/06/23 Primary Care Physician: Dr. Buddy Bull MD Reason For Visit: LT CAROTID STENT, TCAR Medications at Discharge Home Medications ascorbic acid (vitamin C) 500 mg tablet 1,000 mg PO DAILY@0800 supplement 04/04/20 aspirin 81 mg tablet,delayed release 81 mg PO DAILY BLOOD THINNER 04/04/20 omeprazole magnesium 20 mg capsule,delayed release 20 mg PO DAILY GERD 04/04/20 cholecalciferol (vitamin D3) 10 mcg (400 unit) capsule 125 mcg PO DAILY supplement 09/18/20 metoprolol succinate 25 mg tablet,extended release 24 hr 25 mg PO QHS heart 09/18/20 simvastatin 5 mg tablet 5 mg PO .MOFRSA @ QHS cholesterol 09/18/20 ticagrelor 90 mg tablet (Brilinta) 90 mg PO BID BLOOD THINNER 12/29/22 oxycodone 5 mg tablet 5 mg PO Q8H PRN PRN Pain Score 4-10 3 days #9 tabs 01/07/23 Hospital Course Procedures - (L TCAR) Summary of Care Provided Hospital Course: Patient had left transcarotid artery stenting on 01/06/2023. The procedure was without complications and patient tolerated it well. The left neck incision was closed with surgical glue. A LAWANDA drain was placed, had minimal drainage, and was removed on POD#1 without complications. He was admitted to the ICU following surgery for hemodynamic and neurologic monitoring. He has not had any signs/symptoms of stroke, reperfusion syndrome. He has been hemodynamically stable. Initially, he had some difficulty voiding which has since resolved. He is tolerating a full diet. His pain is well controlled. He will continue ASA and Brilinta as prescribed, we will discuss ongoing antiplatelet therapy at his f/u appt. He is medically stable for discharge to his home with family available for support. Physical Exam Const oriented x3 and no apparent distress Resp normal respiratory effort and clear to auscultation bilaterally Cardio regular rate and regular rhythm Extremity normal to inspection and no clubbing, cyanosis or edema Skin no rashes or lesions noted Skin Narrative: Neck incision site, surgical glue intact and skin edges well-approximated. Minimal swelling, no bleeding/drainage/erythema. Groin puncture site without significant swelling/ecchymosis. Weight / BMI Weight Weight: 157 lb 10.088 oz Body Mass Index (BMI) 24.7 ABG / Lab / Microbiology Data Result Diagrams: 01/07/23 03:35 12/31/22 11:14 Laboratory: Laboratory Results - last 24 hr 01/07/23 03:35: WBC 7.5, RBC 4.14 L, Hgb 12.5 L, Hct 37.5 L, MCV 90.6, MCH 30.2, MCHC 33.3, RDW Std Deviation 41.9, RDW Coeff of Marine 12.7, Plt Count 178, MPV 10.5, Immature Gran % (Auto) 1.200 H, Neut % (Auto) 66.8, Lymph % (Auto) 20.5, [place] % (Auto) 9.1, Eos % (Auto) 2.0, Baso % (Auto) 0.4, Absolute Neuts (auto) 5.0, Absolute Lymphs (auto) 1.53, Nucleated RBC % 0 D/C Instructions Discharge Diet: No restrictions May shower in (days): 1 Weight Bearing Status: Weight bearing as tolerated Lifting Restricted to (Lbs): 20 Lifting Restrictions: Do not lift greater than 20 pounds for 3 weeks Call your doctor if your incision/area has: Sudden Increased Bleeding, Increased Pain/ Swelling and Foul Smelling Discharge Call your doctor if you observe: Fever of 101 or Higher and Uncontrolled pain Remove Dressing in: 1 day Additional Dressing/Incision Instructions: You may remove the small adhesive dressing over the drain site in 1 day. Once you remove this, you may leave this open or cover with a new bandaid to your comfort. The incision itself was closed with surgical glue. This glue will peel off on its own over the next week or so. You may shower in 1 day. Water may rinse over the incision site. Do not soak/submerge the incision site in water for at least 3 weeks. Additional Instructions: Do not lift greater than 20 pounds for 3 weeks. Ambulate as tolerated. Do not drive while you are taking the prescription pain medication or until you feel you are able to move your neck well enough to check your blindspots. Continue to take aspirin and Brilinta as prescribed. Follow-up in office as scheduled on 01/21. Please Follow Up With: Pedro Ruiz MD When: 01/21/2023 Meaningful Use Info Meaningful Use Diagnoses (Choose all that apply): None applicable Discharge Plan Admission Admit Date/Time: 01/06/23 05:56 Primary Reason for Your Visit: Left carotid stent Attending Provider: Pedro Ruiz Primary Care Provider: Buddy Bull Discharge Orders/Prescriptions Prescriptions: New oxycodone 5 mg Tablet 5 mg PO Q8H PRN PRN (Reason: Pain Score 4-10) 3 Days Qty: 9 0RF Continued simvastatin 5 mg tablet 5 mg PO .MOFRSA @ QHS cholecalciferol (vitamin D3) 10 mcg (400 unit) capsule 125 mcg PO DAILY aspirin 81 MG tablet,delayed release (DR/EC) 81 mg PO DAILY Hold Instructions: Resume on 02/07/21. Label Comments: pt reports that pt stopped 01/31/21 for surgery on 02/05/[address] eaton instructions ascorbic acid (vitamin C) 500 MG tablet 1,000 mg PO DAILY@0800 omeprazole magnesium 20 MG capsule,delayed release(DR/EC) 20 mg PO DAILY metoprolol succinate 25 mg tablet extended release 24 hr 25 mg PO QHS Brilinta 90 mg tablet 90 mg PO BID Referrals / Follow Up: Buddy Bull MD [Primary Care Provider] - Disposition Disposition (needs filled in before D/C Order can be placed): Home, Self Care
--- NOTE | 2023-01-07 12:29 | PCM.PN.SRG ---
Subjective Subjective Doing well, pain controlled, face/tooth pain resolved. No numbness/weakness/vision loss/speech difficutly. Objective Data Objective Data A&O x 3, NAD RRR Resp non labored CN intact, motor/sensory intact Inc C/D/I, LAWANDA sero-sang Vital Signs: Vital Signs Temp Pulse Resp BP Pulse Ox O2 Del Method 97.8 F 51 L 11 L 98/55 L 100 Room Air 01/07/23 08:00 01/07/23 10:00 01/07/23 10:00 01/07/23 10:00 01/07/23 10:00 01/07/23 10:00 Oxygen Delivery Method Room Air Weight: 157 lb 10.088 oz Body Mass Index (BMI) 24.7 Intake & Output: Intake and Output for Last 24 Hours 01/05/23 01/06/23 01/07/23 23:59 23:59 23:59 Intake Total 689.25 / 809.25 852.5 / 852.5 Output Total 500 / 500 Balance 669.25 / 789.25 352.5 / 352.5 Lab / Micro Data Result Diagrams: 01/07/23 03:35 12/31/22 11:14 Labs: Laboratory Results - last 24 hr 01/07/23 03:35: WBC 7.5, RBC 4.14 L, Hgb 12.5 L, Hct 37.5 L, MCV 90.6, MCH 30.2, MCHC 33.3, RDW Std Deviation 41.9, RDW Coeff of Marine 12.7, Plt Count 178, MPV 10.5, Immature Gran % (Auto) 1.200 H, Neut % (Auto) 66.8, Lymph % (Auto) 20.5, Stoddard % (Auto) 9.1, Eos % (Auto) 2.0, Baso % (Auto) 0.4, Absolute Neuts (auto) 5.0, Absolute Lymphs (auto) 1.53, Nucleated RBC % 0 Assessment & Plan Assessment/Plan (1) Left carotid artery stenosis: PLAN: -LAWANDA removed -neuro intact -ambulating, voiding, tolerating diet -DC
--- NOTE | 2023-01-07 13:30 | CASEMGMT ---
RN?CM?COUTIERIER?CM?to room to meet with patient for initial transition planning/care coordination?assessment.?RN?CM?introduced self and role at [facility].? Pt voices understanding and consents to?assessment?at this time.? Pt sitting up in chair in room in no distress at this time.? Pt is A/O at this time and answers all questions appropriately.?? Care providers, pharmacy, and demographics verified/updated at this time. PCP: Dr Bull Specialists:Dr Ruiz-[facility] surgeon, Dr Henriquez-urology, Dr Gould--pt has 1st appt scheduled w/him Preferred [facility]acy: [facility] Insurance: [employer] Prescription Benefit:?Yes Living Will/HPOA:?Has both LW and HCPOA, who is his dtrYamilet LNOK: Dtr/POYamilet De Los Santos Living Arrangements: Lives alone in 2-story home. Bedroom and bathroom on 2nd floor and bathroom on 1st floor. Pt states does well w/the stairs. Pt states he is indep w/ADL's and IADL's and manages his own meds and appts. Transportation:?Pt states drives self and states no transportation concerns at this time.?Yamilet will take him home @ dc DME: ? Denies using any DME and denies needs.?Pt states he has a walker available, but does not use it. HHC/SNF: No hx of SNF. He has had HHC in the past. He denies need for HHC. Pt made aware therapy evals are pending. Pt states he does not need any therapy, stating he feels @ his baseline and denies needs. Pt wishes to return home and states has no concerns with going home at time of discharge.?? Pt voices no concerns/needs at this time.? PLAN:??Home Sana BSN?RN?CM
== END 2023-01-07 14:17 | disposition home or self-care (01) | DRG 36 ==
LOC: ACINP 09:16 → ICU 09:57
PROVIDERS: Admitting Provider Surgery Trauma Surgery; PCP Family Medicine; Referring Provider Surgery Trauma Surgery; Visit Provider Surgery Trauma Surgery
PROC: 037L3DZ Dilation of Left Internal Carotid Artery with Intraluminal Device, Percutaneous Approach (ICD-10-PCS; CPT 37236; principal; 2023-01-06 07:30)
DX: I65.22 Occlusion and stenosis of left carotid artery (principal); E78.00 Pure hypercholesterolemia, unspecified; Z79.82 Long term (current) use of aspirin
CPT/HCPCS: 36415; 37215; 76937; 80048; 85025; 85027; 85347; 86850; 86900; 86901; 93005; 94668; 99252; A4648; C1725; C1769; C1876; C1884; C1894; J7040; J7120; Q9967; G0463

== ENCOUNTER → 2023-01-28 | Outpatient (CLI) | payer MEDICARE, SELFPAY ==
--- NOTE | 2023-01-28 08:51 | CDU_ITS ---
Reason For Study: S/P Left TCAR Rt. Velocities/BP Lt. Velocities/BP Prox CCA 90/11.6 cm/sec. Prox CCA 110.1/17 cm/sec. Mid CCA 84.4/13.5 cm/sec. Mid CCA 68.1/15.2 cm/sec. Dist CCA 72.1/12.6 cm/sec. Dist CCA, prox stent, 58.6/14.6 cm/sec. Prox ICA 57.9/12.6 cm/sec. Bulb, mid stent, 48.7/12.4 cm/sec. Mid ICA 61.7/19.2 cm/sec. Prox ICA, distal stent, 60.8/14.6 Dist ICA 75.4/23.7 cm/sec. cm/sec. Rt. ICA/CCA = 0.89. Mid ICA 53.5/14.2 cm/sec. Prox ECA 82.5/6 cm/sec. Dist ICA 81.4/23.4 cm/sec. Rt. Vert. 43.3/11.4 cm/sec. Lt. ICA/CCA = 1.20. Prox ECA 115.6/4.2 cm/sec. Lt. Vert. 44.7/13.5 cm/sec. Right Extracranial There is homogeneous, smooth atherosclerotic plaque noted in the right common carotid artery. There is intimal thickening but no significant atherosclerotic plaque noted in the right internal carotid artery. There is homogeneous, smooth atherosclerotic plaque noted in the right external carotid artery. Antegrade flow is noted in the right vertebral artery. Left Extracranial There is homogeneous, smooth atherosclerotic plaque noted in the left common carotid artery. There is intimal thickening but no significant atherosclerotic plaque noted in the left internal carotid artery. Stent noted in the left CCA distal to ICA prox. There is intimal thickening but no significant atherosclerotic plaque noted in the left external carotid artery. Antegrade flow is noted in the left vertebral artery. Procedure Carotid Duplex [id number]. This is a Carotid Duplex examination using B-mode, color flow and specral Doppler. Exam performed in department. VL/Carotid Duplex Ultrasound Interpretation Summary Normal right extracranial internal carotid. Mild (<50%) stenosis left extracranial internal carotid. Patent and antegrade vertebrals bilaterally. Ordering Physician: Tejal Hendrickson Referring Physician: Buddy Bull Performed By: Madhuri Rodriguez RVT
== END | disposition home or self-care (01) ==
LOC: CVS 08:50
PROVIDERS: PCP Family Medicine; Referring Provider Physician Assistant; Visit Provider Physician Assistant
DX: I65.22 Occlusion and stenosis of left carotid artery (principal)
CPT/HCPCS: 93880

== ENCOUNTER → 2023-03-04 | Outpatient (CLI) | payer MEDICARE, SELFPAY ==
--- NOTE | 2023-03-04 06:57 | ECHOD_ITS ---
Reason For Study: CAD Procedure This was a 2D Doppler, Color Flow transthoracic echocardiogram. Exam performed in department. Left Ventricle Normal LV size. Left ventricular systolic function is normal. The estimated ejection fraction is 65 %. Normal diastology for age. No regional wall motion abnormalities noted. Right Ventricle Normal RV size. Normal systolic function. Atria Normal left atrium. Normal right atrium. Mitral Valve Normal mitral valve. Tricuspid Valve Normal tricuspid valve. Aortic Valve Normal aortic valve. Trisinus/trileaflet aortic valve. Pulmonic Valve Normal pulmonic valve. Great Vessels Normal aortic root. The pulmonary artery is normal size. Normal inferior vena cava. Pericardium/Pleural No pericardial effusion. MMode/2D Measurements & Calculations LVIDd: 4.6 cm IVSd: 1.1 cm Ao root diam: 3.5 cm LVIDs: 3.4 cm LVPWd: 1.1 cm RVDd: 3.8 cm FS: 25.3 % LAV(MOD-bp): 55.8 ml LVAd ap4: 24.1 cm2 LVAd ap2: 27.1 cm2 LAV(MOD-bp) Indexed: 30.3 ml/m2 LVLd ap4: 7.1 cm LVLd ap2: 7.4 cm LAV(MOD-sp2): 52.6 ml EDV(MOD-sp4): 66.8 ml EDV(MOD-sp2): 87.6 ml LAV(MOD-sp4): 53.3 ml EDV(sp4-el): 69.7 ml EDV(sp2-el): 84.0 ml LVAs ap4: 11.6 cm2 LVAs ap2: 11.7 cm2 LVLs ap4: 5.7 cm LVLs ap2: 6.0 cm ESV(MOD-sp4): 21.2 ml ESV(MOD-sp2): 20.6 ml ESV(sp4-el): 20.0 ml ESV(sp2-el): 19.2 ml EF(MOD-sp4): 68.3 % EF(MOD-sp2): 76.4 % EF(sp4-el): 71.3 % SV(MOD-sp4): 45.6 ml SV(MOD-sp2): 66.9 ml SV(sp4-el): 49.7 ml LA dimension(2D): 4.2 cm LA A4 area: 19.1 cm2 RA A4 area: 16.4 cm2 TAPSE: 2.1 cm Doppler Measurements & Calculations MV E max carlos manuel: 78.6 cm/sec Lat Peak E' Carlos Manuel: 7.3 cm/sec Med Peak E' Carlos Manuel: 6.1 cm/sec MV A max carlos manuel: 67.0 cm/sec E/E' lat: 10.7 E/E' med: 12.9 MV E/A: 1.2 Ao V2 max: 95.0 cm/sec LV V1 max: 85.1 cm/sec PA V2 max: 86.7 cm/sec Ao max P.6 mmHg LV V1 max P.9 mmHg ECHO/Echo Complete Interpretation Summary Normal LV size. Left ventricular systolic function is normal. The estimated ejection fraction is 65 %. Structurally normal valves. Ordering Physician: Ck Gould Referring Physician: Ck Gould Performed By: Neelima Almeida RDCS and Student
--- NOTE | 2023-03-04 17:13 | STRESSREP_ITS ---
Stress Test Report Exercise myocardial perfusion stress test. 83-year-old man with a history of coronary artery disease Stress protocol: Resting EKG demonstrates sinus bradycardia with a rate of 52 bpm resting blood pressure is 138/82 mmHg. The patient exercised according to the regular Rivera protocol for a total duration of 6 minutes and 20 seconds attaining a maximum heart rate of 116 bpm which was 84% of maximum predicted heart rate; the maximum workload was 8 metabolic equivalents. At rest there were no ST or T wave changes noted to suggest ischemia and at peak exercise upsloping ST changes only were noted which did not meet the criteria for ischemia. No clinical angina was noted the test was terminated due to the target heart rate being achiev ed/fatigue. The peak blood pressure was 174/80 mmHg. Rate-pressure product was 17,600. Myocardial perfusion protocol. 11.1 mCi of technetium 99m sestamibi was injected at rest. The patient exercis ed according to regular Rivera protocol for total duration of 6 minutes and 20 seconds and at peak exercise 33.7 mCi of technetium 99m sestamibi was injected stress images were obtained stress and rest images were reconstructed in comparing the short axis vertical long and horizontal long axis. Gated images were also obtained. Perfusion SPECT analysis: Review of the stress images demonstrate normal uptake of tracer noted in all areas of the myocardium. The resting images similarly demonstrate normal uptake of tracer noted in all areas of the myocardium. No areas of reversibility are noted to suggest ischemia no previous infarct was noted. Gated SPECT analysis: The gated ejection fraction is 67%. Conclusion: Normal exercise myocardial perfusion stress test at a moderate workload Preserved ejection fraction.
== END | disposition home or self-care (01) ==
LOC: CVS 06:56
PROVIDERS: PCP Family Medicine; Referring Provider Internal Medicine Cardiovascular Disease; Visit Provider Internal Medicine Cardiovascular Disease
DX: I25.10 Atherosclerotic heart disease of native coronary artery without angina pectoris (principal)
CPT/HCPCS: 78452; 93017; 93306; A9500; A4216; J2785

== ENCOUNTER → 2023-08-06 | Outpatient (CLI) | payer MEDICARE, SELFPAY ==
--- NOTE | 2023-08-06 08:44 | CDU_ITS ---
Reason For Study: S/P left carotid stent Rt. Velocities/BP Lt. Velocities/BP Prox CCA 85.8/8.5 cm/sec. Prox CCA 119.8/20.4 cm/sec. Mid CCA 80.9/15.8 cm/sec. Mid CCA 85.5/17.9 cm/sec. Dist CCA 73.6/15.8 cm/sec. Dist CCA 75.6/13.0 cm/sec. Prox ICA 55.1/12.2 cm/sec. Prox ICA 72.4/16.4 cm/sec. Mid ICA 55.9/14.2 cm/sec. Mid ICA 75.7/19.7 cm/sec. Dist ICA 77.9/23.0 cm/sec. Dist ICA 83.4/23.0 cm/sec. Rt. ICA/CCA = 77.9/80.9=1.0. Lt. ICA/CCA = 83.4/85.5=1.0. Prox ECA 87.1/0.0 cm/sec. Prox ECA 267.0/0.0 cm/sec. Rt. Vert. 36.6/10.4 cm/sec. Lt. Vert. 51.5/15.3 cm/sec. Right Extracranial There is homogeneous, smooth atherosclerotic plaque noted in the right common carotid artery. There is homogeneous, smooth atherosclerotic plaque noted in the right internal carotid artery. There is intimal thickening but no significant atherosclerotic plaque noted in the right external carotid artery. Antegrade flow is noted in the right vertebral artery. Left Extracranial There is homogeneous, smooth atherosclerotic plaque noted in the left common carotid artery. There is heterogeneous, irregular atherosclerotic plaque noted in the left internal carotid artery. There is intimal thickening but no significant atherosclerotic plaque noted in the left external carotid artery. Antegrade flow is noted in the left vertebral artery. Procedure Carotid Duplex [id number]. This is a Carotid Duplex examination using B-mode, color flow and specral Doppler. Exam performed in department. STENT noted in LT CCA DISTAL to LT ICA PROXIMAL. VL/Carotid Duplex Ultrasound Interpretation Summary Mild (<50%) stenosis right extracranial internal carotid. Mild (<50%) stenosis left extracranial internal carotid. Patent and antegrade vertebrals bilaterally. Ordering Physician: Pedro Ruiz Referring Physician: Pedro Ruiz Performed By: Odalis Garcia, DARIAN, RVT
== END | disposition home or self-care (01) ==
PROVIDERS: PCP Family Medicine; Referring Provider Surgery Trauma Surgery; Visit Provider Surgery Trauma Surgery
DX: I65.22 Occlusion and stenosis of left carotid artery (principal)
CPT/HCPCS: 93880

== ENCOUNTER → 2024-01-10 | Outpatient (CLI) | payer MEDICARE, SELFPAY ==
--- NOTE | 2024-01-10 09:39 | CDU_ITS ---
Reason For Study: S/P Lt TCAR Rt. Velocities/BP Lt. Velocities/BP Prox CCA 73/11.6 cm/sec. Prox CCA 75.3/16 cm/sec. Mid CCA 70.2/13.5 cm/sec. Mid CCA 63.1/14.2 cm/sec. Dist CCA 67.4/14.5 cm/sec. Dist CCA 48.2/11.6 cm/sec. Prox ICA 46.6/12.6 cm/sec. Bulb, 46.5/13 cm/sec. Mid ICA 61.7/19.2 cm/sec. Prox ICA 61.4/14.4 cm/sec. Dist ICA 88.3/31.1 cm/sec. Mid ICA 52.2/18.7 cm/sec. Rt. ICA/CCA = 1.26. Dist ICA 68.3/22.1 cm/sec. Prox ECA 78.7/4.1 cm/sec. Lt. ICA/CCA = 1.08. Rt. Vert. 44.8/13.3 cm/sec. Prox ECA 239.2 cm/sec. Lt. Vert. 36/12.5 cm/sec. Right Extracranial There is homogeneous, smooth atherosclerotic plaque noted in the right common carotid artery. There is homogeneous, smooth atherosclerotic plaque noted in the right internal carotid artery. There is intimal thickening but no significant atherosclerotic plaque noted in the right external carotid artery. Antegrade flow is noted in the right vertebral artery. Left Extracranial There is homogeneous, smooth atherosclerotic plaque noted in the left common carotid artery. There is heterogeneous, irregular atherosclerotic plaque noted in the left internal carotid artery. Stent noted in the Left CCA distal to ICA prox. There is intimal thickening but no significant atherosclerotic plaque noted in the left external carotid artery. Antegrade flow is noted in the left vertebral artery. Procedure Carotid Duplex [id number]. This is a Carotid Duplex examination using B-mode, color flow and specral Doppler. Exam performed in department. VL/Carotid Duplex Ultrasound Interpretation Summary Mild (<50%) stenosis right extracranial internal carotid. Mild (<50%) stenosis left extracranial internal carotid. Patent and antegrade vertebrals bilaterally. Ordering Physician: Tejal Clark Referring Physician: Buddy Bull Performed By: Madhuri Rodriguez RVT
== END | disposition home or self-care (01) ==
LOC: CVS 09:38
PROVIDERS: PCP Family Medicine; Referring Provider Physician Assistant; Visit Provider Physician Assistant
DX: I65.22 Occlusion and stenosis of left carotid artery (principal); Z48.812 Encounter for surgical aftercare following surgery on the circulatory system
CPT/HCPCS: 93880

== ENCOUNTER → 2024-02-24 | Outpatient (CLI) | payer MEDICARE, SELFPAY ==
[2024-02-24 08:38] LABS: AST(SGOT) 23 U/L (15-37); Alanine Aminotransfer ALT/SGPT 23 U/L (16-61); Albumin, Serum 3.7 g/dL (3.2-5.0); Alkaline Phosphatase 63 U/L (45-117); Bilirubin, Direct 0.26 mg/dL (0.00-0.30); Cholesterol 149 mg/dL (200); Globulin 3.3 g/dL (2.2-4.2); High Density Lipoprotein 36 mg/dL; Triglycerides 133 mg/dL; Very Low Density Lipoprotein 27 mg/dL (5-40)
== END | disposition home or self-care (01) ==
PROVIDERS: PCP Family Medicine; Referring Provider Nurse Practitioner Family; Visit Provider Nurse Practitioner Family
DX: E78.5 Hyperlipidemia, unspecified (principal); Z95.1 Presence of aortocoronary bypass graft; Z95.5 Presence of coronary angioplasty implant and graft
CPT/HCPCS: 36415; 80061; 80076

== ENCOUNTER 2024-09-23 10:11 | Inpatient (IN) | payer MEDICARE, SELFPAY ==
[2024-09-23] VITALS (8 sets, daily range): BP systolic 120–160; BP diastolic 60–89; PULSE 55–74; RESP 15–18; TEMP 36.4–37.2; O2SAT 95–100; BMI 25.1; BMI 25.9
--- NOTE | 2024-09-23 10:42 | CT_ITS ---
EXAM: CT ABDOMEN AND PELVIS WITHOUT INTRAVENOUS CONTRAST CLINICAL INDICATION: Pain TECHNIQUE: Helically acquired images were obtained of the abdomen and pelvis without intravenous contrast. This CT exam was performed using one or more of the following dose reduction techniques: automated exposure control, adjustment of the mA and/or kV according to patient size, and/or use of iterative reconstruction technique. COMPARISON: No relevant prior studies available. FINDINGS: LOWER THORAX: Mild reticulation of the lower lobes suggestive of acute or chronic interstitial lung disease. Small hiatal hernia. ABDOMEN: LIVER: Normal. Homogeneous. GALLBLADDER AND BILE DUCTS: Cholecystectomy clips are in place. Prominence of the common bile duct within the range of normal for postcholecystectomy patient. PANCREAS: Normal. No focal cystic mass. SPLEEN: Normal. Normal size without focal cystic or solid mass. ADRENALS: Normal. No nodules. KIDNEYS AND URETERS: 9 mm proximal right ureteral stone identified at the L3 level associated with right hydronephrosis. Multiple stones noted within the right kidney measuring up to 5 mm in diameter. Punctate stone noted within the lower pole of the left kidney. 2.6 cm cyst within the upper pole of the right kidney. No specific follow-up indicated. STOMACH AND BOWEL: Diverticulosis of the colon noted without evidence of acute diverticulitis. PELVIS: APPENDIX: Discs Appendix is visualized and normal in appearance. BLADDER: Normal. REPRODUCTIVE: Unremarkable as visualized. No mass. ABDOMEN and PELVIS: INTRAPERITONEAL SPACE: Normal. No ascites or other fluid collection. No free air. BONES/JOINTS: No suspicious lytic or blastic abnormality. SOFT TISSUES: Normal. No discrete abdominal or pelvic wall hernia. VASCULATURE: Normal. Abdominal aorta is non-dilated. LYMPH NODES: Normal. No enlarged lymph nodes. OTHER FINDINGS: Prominent disc generation at L4-5. CT/Abdomen/Pelvis without Cont IMPRESSION: 1. Obstructive 9 mm proximal right ureteral stone. 2. Bilateral nephrolithiasis. 3. Diverticulosis coli. 4. Small hiatal hernia. 5. Mild interstitial lung disease. Electronically Signed: Eren Taylor MD at 12:09 EST ,
--- NOTE | 2024-09-23 10:46 | EDS_ITS ---
HPI HPI - GI History of Present Illness Chief Complaint: Flank Pain Detail of Chief Complaint: Right flank pain 8 AM this morning. Informant: patient Abdominal Pain/Flank Pain Onset: Today and Hours Context: Sudden Onset Timing: Continuous Quality: Sharp and Stabbing Location: Right Flank Current Severity: Moderate Maximum Severity: Moderate Worsened by: Nothing Relieved by: Nothing Nausea/Vomiting/Emesis GI Symptom: Negative for Nausea Diarrhea/Melena/Hematochezia GI Symptom: Negative for Diarrhea Associated Symptoms Associated Symptoms: Negative for Dysuria, Frequency or Hematuria Narrative Narrative: 84-year-old male history of kidney stones, prior AR. Lithotripsy for his prior stones and sees Dr. Samuel Henriquez of urology. States this morning around 8 AM he had sudden onset of right flank pain. Denies vomiting or fever. No dysuria or hematuria. States has been feeling well the last several days. This does feel like his prior stones. Prior similar symptoms: Yes Recent Illness/Hospitalization: No PFSH PFSH Medical History Ventricular fibrillation Hypothyroidism Essential hypertension Atherosclerosis of coronary artery of [place] heart without angina pectoris Hyperlipidemia Postoperative pain Wears contact lenses Arthritis Kidney stones Shortness of breath on exertion Impacted cerumen of both ears Acute sinusitis Acute conjunctivitis of both eyes Left ureteral calculus Easy bruising Excessive bleeding Blackout Gastric reflux Non-smoker History of carotid artery disease Leg cramps History of stress test Cardiology follow-up encounter History of heart attack History of irregular heartbeat History of kidney stones Fatigue Heart disease Right ureteral calculus Home Medications ?Medication ?Instructions ?Recorded ?Last Taken ?Type aspirin 81 mg tablet,delayed 81 mg PO DAILY BLOOD THINNER 04/04/20 01/06/23 History release ascorbic acid (vitamin C) 500 mg 500 mg PO DAILY@0800 supplement 02/19/23 Unknown History tablet cholecalciferol (vitamin D3) 50 50 mcg PO DAILY 02/21/24 Unknown History mcg (2,000 unit) tablet omeprazole magnesium 20 mg 20 mg PO DAILY GERD #90 caps 05/03/24 Unknown Rx capsule,delayed release Allergy/AdvReac Type Severity Reaction Status Date / Time No Known Allergies Allergy Verified 09/23/24 10:11 Family History Brother Colon cancer Diabetes Myocardial infarction Mother Diabetes Myocardial infarction Father Heart disease Surgical History H/O carotid endarterectomy (~01/2023) Hx of tooth extraction Hx of cystostomy History of heart artery stent (12/28/03) History of tonsillectomy History of cataract surgery History of cholecystectomy History of heart bypass surgery (09/30/04) Social History Smoking Status: Never smoker alcohol intake: never substance use type: does not use caffeine: No ROS ROS ED ROS Narrative Denies recent illness. Constitutional Constitutional ED: Denies chills or fever(s) ENT ENT ED: Denies ear pain Cardiovascular Cardiovascular: Denies chest pain Respiratory/Chest Respiratory/Chest: Denies cough or dyspnea Gastrointestinal Gastrointestinal: Reports abdominal pain and other Details: Right flank pain. Genitourinary Genitourinary ED: Denies dysuria or hematuria Musculoskeletal Musculoskeletal: Reports back pain; Denies arthralgias Integumentary Denies abscess Neurologic Neurologic: Denies headache(s) Psychiatric Psychiatric: Denies anxiety Endocrine Endocrinology: Denies polydipsia Hematologic/Lymphatic Hematologic/Lymphatic: Denies easy bleeding Allergic/Immunologic Allergic/Immunologic ED: Denies mouth swelling, tongue swelling or urticaria EXAM Physical Exam Narrative Exam Narrative: 84-year-old male right flank pain. Vital signs are stable afebrile. Significant other at the bedside. H EENT exam. Round reactive light. Mytrex members. Neck nontender. Lungs clear to auscultation. Heart regular rate r hythm rate about 70 no murmur. Chest wall ribs nontender. Abdomen soft nondistended normal bowel sounds without peritoneal signs. Back mild CVA tenderness. No ecchymosis or bruising or rash. Moving all 4 extremities. Nontender no edema. Normal strength. Neurologically is awake and alert no focal motor deficits. Const Vital Signs: 09/23/24 10:12 09/23/24 11:11 09/23/24 12:00 Temperature 98.9 F Temperature Source Oral Pulse Rate 72 74 74 Respiratory Rate 18 18 18 Blood Pressure 154/76 H 124/89 H 120/60 Blood Pressure Mean 102 100 80 Pulse Ox 100 99 99 Oxygen Delivery Method Room Air Positive well nourished and well developed; Negative for obese, cachectic or contractures General Appearance ED: well developed and NAD; Negative for cachectic or contractures Nutritional Appearance: Negative for cachectic or obese HEENT Reports moist mucous membranes normocephalic and atraumatic Eyes PERRL and EOMs intact bilaterally Neck no lymphadenopathy, supple and no JVD Resp normal respiratory effort and clear to auscultation bilaterally Cardio regular rate, regular rhythm, S1 normal heart sound, S2 normal heart sound and no murmurs GI non-tender, non-distended and no masses Palpation: soft; Negative for tender, guarding, hernia, mass or rebound tenderness present Back/Spine no CVA tenderness General Back: Negative for CVA tenderness Cervical Spine: Negative for cervical spine tenderness Thoracic Spine / Upper Back: Negative for thoracic spinal tenderness Lumbar Spine / Lower Back: Negative for lumbar spinal tenderness Coccyx: Negative for other Extremity full ROM General Extremety ED: Negative for edema or tenderness General Extremity: Negative for edema Neuro CN's II-XII intact bilaterally, moves all extremities and no sensory deficits noted Sensorium / Orientation: alert, oriented to person, oriented to place and oriented to time; Negative for orientation impaired Motor Exam: strength 5/5 throughout; Negative for general weakness or strength abnormal Psych mental status grossly normal and thought process normal Appearance: Negative for other Attitude: No agitated Mood & Affect: Negative for depressed, anxious or tearful Skin no wounds General Skin Exam: Negative for jaundice Lesions: no lesions Rashes: no rashes MDM MDM MDM Narrative Medical decision making narrative: 84-year-old male right flank pain history of kidney stones differential would include kidney stones versus other etiologies. CAT scan and labs. IV morphine for pain and Zofran. Multiple repeat exams. Patient is doing well. We went over his labs and his CAT scan results. He is received to and getting a third dose of morphine for pain. Given the size of the stone 9 mm of being proximal and hydroureter and hydronephrosis and his recurrent pain I spoke to his urologist Dr. Henriquez patient will be admitted for pain control and urologic procedure. History & Record Review Discussion w/independent historian: Patient and Family Additional record(s) reviewed:: Prior inpatient record, Prior outpatient record, Prior ED visit and Prior labs Lab Data Attestation: I reviewed the patient's lab results. Lab results narrative: CBC white count of 5. H&H 14 and 42. Electrolytes show gap 7. BUN of 13 creatinine 1.59. Which is above his baseline. Glucose 188. CAT scan shows a right sided moderate sized ureteral stone in the proximal third ureter with hydroureter. Labs: Laboratory Results - last 24 hr 09/23/24 09/23/24 10:30 11:35 WBC 5.7 RBC 4.64 Hgb 14.5 Hct 42.3 MCV 91.2 MCH 31.3 MCHC 34.3 RDW Std Deviation 41.1 RDW Coeff of Marine 12.3 Plt Count 168 MPV 10.3 Immature Gran % (Auto) 0.900 Neut % (Auto) 79.6 H Lymph % (Auto) 12.8 L [place] % (Auto) 4.4 Eos % (Auto) 1.6 Baso % (Auto) 0.7 Absolute Neuts (auto) 4.6 Absolute Lymphs (auto) 0.73 L Nucleated RBC % 0 Sodium 138 Potassium 3.8 Chloride 105 Carbon Dioxide 26.0 Anion Gap 7 BUN 13 Creatinine 1.59 H Estim Creat Clear Calc 32.33 Est GFR (MDRD) Af Amer 54 L Est GFR (MDRD) Non-Af 44 L BUN/Creatinine Ratio 8.2 L Glucose 188 H Calcium 9.2 Urine Color Yellow Urine Clarity Clear Urine pH 7.0 Ur Specific [place] 1.010 Urine Protein 15 H Urine Glucose (UA) Normal Urine Ketones Negative Urine Occult Blood 50 H Urine Nitrite Negative Urine Bilirubin Negative Urine Urobilinogen Normal Ur Leukocyte Esterase 25 H Urine RBC 0-5 SEEN Urine WBC 0 SEEN Ur Squamous Epith Cells 0 SEEN Urine Bacteria 0 SEEN Urine Mucus 0 SEEN Radiography Diagnostic Testing: Clinical Impression(s) from Imaging Studies Abdomen/Pelvis CT 09/23/24 10:42 IMPRESSION: 1. Obstructive 9 mm proximal right ureteral stone. 2. Bilateral nephrolithiasis. 3. Diverticulosis coli. 4. Small hiatal hernia. 5. Mild interstitial lung disease. Electronically Signed: Eren Taylor MD at 12:09 EST , Discharge Plan Triage Chief Complaint: Flank Pain ED Provider: Nikita Kumar Dx/Rx/DC Orders Clinical Impression: Ureteral calculi, Hydroureter, Intractable pain, Uropathy, obstructive Prescriptions: No Action cholecalciferol (vitamin D3) 50 mcg (2,000 unit) tablet 50 mcg PO DAILY aspirin 81 MG tablet,delayed release (DR/EC) 81 mg PO DAILY Patient Comments: pt reports that pt stopped 01/31/21 for surgery on 02/05/[address] henriquez instructions ascorbic acid (vitamin C) 500 mg tablet 500 mg PO DAILY@0800 omeprazole magnesium 20 mg capsule,delayed release(DR/EC) 20 mg PO DAILY Qty: 90 3RF Primary Care Provider: Buddy Bull Referrals: Buddy Bull MD [Primary Care Provider] - Print Language: Mauritian Disposition Disposition: Acute Care Hospital [facility]
[2024-09-23 10:48] LABS: Absolute Lymphocyte Count 0.73 X10^3/uL (0.83-4.51); Absolute Neutrophil Count 4.6 X10^3/uL (2.0-7.7); Basophil# 0.04 X10^3/uL; Basophil% 0.7 % (0-1); Eosinophil# 0.09 X10^3/uL; Eosinophils% 1.6 % (0-5); Hematocrit 42.3 % (40-54); Hemoglobin 14.5 g/dL (13.0-16.5); Lymphocyte # 0.73 X10^3/ul (0.83-4.51); Lymphocyte % 12.8 % (19-41); Mean Corp Hgb Conc 34.3 g/dL (32-36); Mean Corpuscular Hgb 31.3 pg (27.0-32.0); Mean Corpuscular Volume 91.2 fL (80-94); Mean Platelet Vol. 10.3 fl (6.2-12.0); Monocyte# 0.25 X10^3/uL; Monocyte% 4.4 % (0-10); NRBC Flagged by Analyzer 0 % (0-5); Neutrophil # 4.56 X10^3/uL (2.7-7.7); Neutrophil % 79.6 % (47-70); Platelet Count 168 K/mm3 (150-450); RBC Distribution Width CV 12.3 % (11.6-14.6); RBC Distribution Width SD 41.1 fl (35.1-43.9); Red Blood Count 4.64 M/mm3 (4.6-6.2); White Blood Count 5.7 K/mm3 (4.4-11.0)
[2024-09-23] MEDS: Ondansetron 4 MG/2 ML Vial IV (10:49)
[2024-09-23] MEDS: Morphine 4 MG/ML Syringe IV (10:50)
[2024-09-23 11:22] LABS: Anion Gap 7 (5-15); BUN 13 mg/dL (7-18); BUN/Creat Ratio 8.2 RATIO (10-20); Calcium,Total 9.2 mg/dL (8.5-10.1); Chloride 105 mmol/L (98-107); Creatinine, Serum 1.59 mg/dL (0.70-1.30); EST Glomerular Filtration Rate 44 mL/min (>60); Est Glom Filt Rate - Afr Amer 54 mL/min (>60); Estimated Creatinine Clearance 32.33 ml/min; Glucose 188 mg/dL (74-106); Potassium 3.8 mmol/L (3.5-5.1); Sodium Level 138 mmol/L (136-145)
[2024-09-23] MEDS: morphine 8 MG/ML Syringe 4 MG IV (11:30)
[2024-09-23 11:40] LABS: Bacteria 0 SEEN /hpf (None Seen); Mucous, Urine 0 SEEN /hpf (<or=2+); Squamous Epithelial Cells - UA 0 SEEN /hpf (0-5); White Blood Cells 0 SEEN /hpf (0-5)
[2024-09-23 11:41] LABS: Color, Urine Yellow (Yellow); Glucose, Dipstick Normal (Normal); Ketone-Dipstick Negative (Negative); Leukocyte Esterase-Dipstick 25 /ul (Negative); Nitrite-Dipstick Negative (Negative); Occult Blood-Urine 50 /ul (Negative); Protein-Dipstick 15 mg/dl (Negative); Urine Bilirubin Dipstick Negative (Negative); Urine Clarity Clear (Clear); Urine Urobilinogen Normal (Normal)
[2024-09-23 11:49] LABS: Red Blood Cells-Urine 0-5 SEEN /hpf (0-5)
--- NOTE | 2024-09-23 12:34 | PCM.HP.STD ---
HPI - General General Date of Admission: 09/23/24 Chief Complaint: Large proximal right ureteral calculi HPI Narrative STALIN MATA, is a 84 M who presents To the emergency room with severe right flank pain, CT scan done demonstrates a 9 mm stone, causing obstruction of the right kidney patients received multiple courses of pain medicine IV morphine with no relief, ER doctor physician called me Patient would be admitted for pain control plan. Take the patient tomorrow to surgery for a cystoscopy and right stent placement FOR[facility]LY [facility], [facility] Medical History Ventricular fibrillation Hypothyroidism Essential hypertension Atherosclerosis of coronary artery of [place] heart without angina pectoris Hyperlipidemia Postoperative pain Wears contact lenses Arthritis Kidney stones Shortness of breath on exertion Impacted cerumen of both ears Acute sinusitis Acute conjunctivitis of both eyes Left ureteral calculus Easy bruising Excessive bleeding Blackout Gastric reflux Non-smoker History of carotid artery disease Leg cramps History of stress test Cardiology follow-up encounter History of heart attack History of irregular heartbeat History of kidney stones Fatigue Heart disease Right ureteral calculus Home Medications ?Medication ?Instructions ?Recorded ?Last Taken ?Type aspirin 81 mg tablet,delayed 81 mg PO DAILY BLOOD THINNER 04/04/20 01/06/23 History release ascorbic acid (vitamin C) 500 mg 500 mg PO DAILY@0800 supplement 02/19/23 Unknown History tablet cholecalciferol (vitamin D3) 50 50 mcg PO DAILY 02/21/24 Unknown History mcg (2,000 unit) tablet omeprazole magnesium 20 mg 20 mg PO DAILY GERD #90 caps 05/03/24 Unknown Rx capsule,delayed release Allergy/AdvReac Type Severity Reaction Status Date / Time No Known Allergies Allergy Verified 09/23/24 10:11 Family History Brother Colon cancer Diabetes Myocardial infarction Mother Diabetes Myocardial infarction Father Heart disease Surgical History H/O carotid endarterectomy (~01/2023) Hx of tooth extraction Hx of cystostomy History of heart artery stent (12/28/03) History of tonsillectomy History of cataract surgery History of cholecystectomy History of heart bypass surgery (09/30/04) Social History Smoking Status: Never smoker alcohol intake: never substance use type: does not use caffeine: No Vital Signs Vital Signs Vital Signs: 09/23/24 10:12 09/23/24 11:11 09/23/24 12:00 Temperature 98.9 F Temperature Source Oral Pulse Rate 72 74 74 Respiratory Rate 18 18 18 Blood Pressure 154/76 H 124/89 H 120/60 Blood Pressure Mean 102 100 80 Pulse Ox 100 99 99 Oxygen Delivery Method Room Air Weight Weight: 72.847 kg Body Mass Index (BMI) 25.1 Results Medical Records Data Attestation: I reviewed the patient's medical records Lab / Micro Data 09/23/24 10:30 09/23/24 10:30 Labs: Laboratory Results - last 24 hr 09/23/24 10:30: WBC 5.7, RBC 4.64, Hgb 14.5, Hct 42.3, MCV 91.2, MCH 31.3, MCHC 34.3, RDW Std Deviation 41.1, RDW Coeff of [place] 12.3, Plt Count 168, MPV 10.3, Immature Gran % (Auto) 0.900, Neut % (Auto) 79.6 H, Lymph % (Auto) 12.8 L, [place] % (Auto) 4.4, Eos % (Auto) 1.6, Baso % (Auto) 0.7, Absolute Neuts (auto) 4.6, Absolute Lymphs (auto) 0.73 L, Nucleated RBC % 0, Sodium 138, Potassium 3.8, Chloride 105, Carbon Dioxide 26.0, Anion Gap 7, BUN 13, Creatinine 1.59 H, Estim Creat Clear Calc 32.33, Est GFR (MDRD) Af Amer 54 L, Est GFR (MDRD) Non-Af 44 L, BUN/Creatinine Ratio 8.2 L, Glucose 188 H, Calcium 9.2 09/23/24 11:35: Urine Color Yellow, Urine Clarity Clear, Urine pH 7.0, Ur Specific [place] 1.010, Urine Protein 15 H, Urine Glucose (UA) Normal, Urine Ketones Negative, Urine Occult Blood 50 H, Urine Nitrite Negative, Urine Bilirubin Negative, Urine Urobilinogen Normal, Ur Leukocyte Esterase 25 H, Urine RBC 0-5 SEEN, Urine WBC 0 SEEN, Ur Squamous Epith Cells 0 SEEN, Urine Bacteria 0 SEEN, Urine Mucus 0 SEEN Imaging Radiology Impression Abdomen/Pelvis CT 09/23/24 10:42 IMPRESSION: 1. Obstructive 9 mm proximal right ureteral stone. 2. Bilateral nephrolithiasis. 3. Diverticulosis coli. 4. Small hiatal hernia. 5. Mild interstitial lung disease. Electronically Signed: Eren Taylor MD at 12:09 EST Reading Location ID and State: [facility] / [place] Tel , Service support , Assessment & Plan Assessment/Plan (1) Intractable pain: (2) Uropathy, obstructive: (3) Hydroureter: (4) Ureteral calculi: PLAN: Admit for pain control plan to do a cystoscopy stent placement tomorrow morning
[2024-09-23] MEDS: morphine 8 MG/ML Syringe 6 MG IV (12:40)
[2024-09-23] MEDS: Morphine 2 MG/ML Syringe IV ×3 (13:38→21:14)
[2024-09-23] MEDS: Metoclopramide 10 MG/2 ML Vial IV (13:38)
[2024-09-23] MEDS: 0.9% Normal Saline (1000mL) 1,000 ML 125 ML IV (15:47)
[2024-09-23] MEDS: Cefazolin 1 GM/50 ML BAG IV ×2 (15:48→22:27)
[2024-09-23] MEDS: Docusate Sodium 100 MG Capsule 200 MG PO (21:55)
[2024-09-24] VITALS (12 sets, daily range): BP systolic 102–121; BP diastolic 52–66; PULSE 55–60; RESP 15–16; TEMP 36.4–36.9; O2SAT 97–100; BMI 25.9
[2024-09-24] MEDS: Morphine 2 MG/ML Syringe IV (01:10)
[2024-09-24] MEDS: 0.9% Normal Saline (1000mL) 1,000 ML 125 ML IV (02:00)
[2024-09-24] MEDS: Metoclopramide 10 MG/2 ML Vial IV (02:48)
--- NOTE | 2024-09-24 10:42 | PCM.PRE.AN2 ---
ASA Classification* ASA Classification ASA Classification: 3 Assessment & Plan Anesthesia* Anesthesia Assessment Anesthesia Assessment: Discussed sedation and/or anesthesia options, risks, benefits, and alternatives with patient/parents/legal guardian/POA. Questions invited. The patient/parents/legal guardian/POA seems to understand and agrees to proceed with anesthesia plan. Reviewed the physical assessment, medical history, allergy history and patient home medications list prior to surgery/procedure/anesthetic and documented any changes. Performed airway and anesthesia risk assessments. Anesthesia Type Anesthesia Type: MAC History Source History Obtained from:: Patient and Chart Anesthesia Focused Assessment* Temperature: 98 F Pulse Rate: 57 Blood Pressure: 109/52 Respiratory Rate: 16 Pulse Ox: 100 Oxygen Delivery Method: Room Air Airway Assessment Mouth opens: >3 cm Mallampati Score: IV Teeth Condition: Caps/Crowns (Patient has multiple crowns. Also a couple of implants. They are all tight.) Neck Range of motion (ROM): Full ROM Focused Labs Anesthesia Preop lab: CBC WBC 5.7 K/mm3 (4.4-11.0) 09/23/24 10:30 RBC 4.64 M/mm3 (4.6-6.2) 09/23/24 10:30 Hgb 14.5 g/dL (13.0-16.5) 09/23/24 10:30 Hct 42.3 % (40-54) 09/23/24 10:30 Plt Count 168 K/mm3 (150-450) 09/23/24 10:30 CHEMISTRY Potassium 3.8 mmol/L (3.5-5.1) 09/23/24 10:30 Sodium 138 mmol/L (136-145) 09/23/24 10:30 BUN 13 mg/dL (7-18) 09/23/24 10:30 Creatinine 1.59 mg/dL (0.70-1.30) H 09/23/24 10:30 Glucose 188 mg/dL (74-106) H 09/23/24 10:30 COAG Pre-Assessment Diagnosis/Proposed Procedure Planned Operative Procedure(s): Cystoscopy and right stent placement Anesthesia History Anesthesia History - president and chief executive officer: Anesthesia History - president and chief executive officer Hx Hospitalization No 12/29/22 14:25 Any Problems With Anesthesia No 09/23/24 21:03 Cholinesterase deficiency No 09/23/24 21:03 You/Your Family Experience No 09/23/24 21:03 fever (hyperthermia) with Relationship Recent Exposure to Contagious No 09/23/24 21:03 Disease Does patient have nerve No 09/23/24 21:03 stimulator Patient instructed to have device shut off --Does patient have Pacemaker No 09/24/24 07:59 or ICD? When Was Last Pacemaker Check QUESTION #4 FULL TEXT: You/Your Family Experience fever (hyperthermia) with Anesthesia Last Oral Intake Last Oral intake: Last Oral Intake NPO since 00:00 09/24/24 07:59 Meds taken in AM with sips of water? Meds patient instructed to take am of surgery PONV PONV - president and chief executive officer: PONV - president and chief executive officer Female HX of Motion Sickness HX of N/V After Surgery Non-Smoker Duration of Surgery greater than 60 minutes Number of Risk Factors PONV Score Height & Weight Height & Weight: Anesthesia: Height & Weight Height 5 ft 7 in 09/24/24 07:59 Weight: 75 kg 09/24/24 07:59 Body Mass Index (BMI) 25.9 09/24/24 07:59 Respiratory Assessment Respiratory Assessment - president and chief executive officer: Respiratory Tract Infection Hx - president and chief executive officer Hx Respiratory Tract Infection No 09/23/24 21:03 STOP Sleep Apnea STOP Sleep Apnea - president and chief executive officer: STOP Sleep Apnea - president and chief executive officer Hx Hypertension Yes 09/23/24 14:05 Hx Sleep Apnea No 09/23/24 14:05 CPAP BIPAP Do you snore loudly (louder No 09/23/24 14:05 than talking or can be heard Do you often feel tired/ No 09/23/24 14:05 fatigued/ sleepy during daytime? Has anyone observed you stop No 09/23/24 14:05 breathing during sleep? STOP Results Negative 09/23/24 14:05 QUESTION #5 FULL TEXT : Do you snore loudly (louder than talking or can be heard through closed doors)? 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 Specify any problems Hx of Preganancy in last 3 N/A 09/23/24 14:05 Months Nurse Filling Out Transfusion ACOEY 09/23/24 14:05 & Questions: Date: 09/23/24 09/23/24 14:05 Time: 14:07 09/23/24 14:05 Patient unable to answer at this time (ie. confused, unrespo /Reproduction History /Reproductive History - president and chief executive officer: /Reproductive Hx- president and chief executive officer Hx Now No 09/23/24 21:03 Gestational Age (in weeks): EDC: Hx Hx Para Hx Section SAB No 09/23/24 21:03 Active Medications Active Medications: Current Medications Generic Name Dose Route Start Last Admin Trade Name Freq PRN Reason Stop Dose Admin Acetaminophen 650 mg 09/23/24 12:39 Acetaminophen 325 Mg Tablet PO Q6H PRN PRN Pain Score 1-10 Al Hydroxide/Mg Hydroxide 30 ml 09/23/24 12:39 Mag Hydrox/Al Hydrox/Simeth 30 Ml Udc PO Q4H PRN PRN HEARTBURN Docusate Sodium 200 mg 09/23/24 22:00 09/23/24 21:55 Docusate Sodium 100 Mg Capsule PO 200 mg BID SMITH Administration Enoxaparin Sodium 40 mg 09/24/24 10:00 Enoxaparin 40 Mg/0.4 Ml Syringe SC DAILY@1000 SMITH Sodium Chloride 1,000 mls @ 125 mls/hr 09/23/24 12:40 09/24/24 02:00 IV 09/24/24 12:39 125 mls/hr .Q8H SMITH Administration Metoclopramide HCl 10 mg 09/23/24 12:39 09/24/24 02:48 Metoclopramide 10 Mg/2 Ml Vial IV 10 mg Q8H PRN PRN Administration Nausea/vomiting Morphine Sulfate 2 mg 09/23/24 12:39 09/24/24 01:10 Morphine 2 Mg/Ml Syringe IV 2 mg Q2H PRN Administration Pain Score 6-10 Ondansetron HCl 4 mg 09/23/24 12:39 Ondansetron 4 Mg/2 Ml Vial IV Q8H PRN NAUSEA/VOMITING Oxycodone HCl 5 - 10 mg 09/23/24 12:39 Oxycodone 5 Mg Tablet PO Q6H PRN PRN Pain Score 4-10 Pantoprazole Sodium 20 mg 09/24/24 10:00 Pantoprazole Sodium 20 Mg Tablet PO DAILY SMITH Sodium Chloride 10 - 40 ml 09/23/24 13:50 0.9% Saline Lock 10 Ml Syringe IV UD PRN SALINE FLUSH PFSH Medical History Ventricular fibrillation Hypothyroidism Essential hypertension Atherosclerosis of coronary artery of [place] heart without angina pectoris Hyperlipidemia Postoperative pain Wears contact lenses Arthritis Kidney stones Shortness of breath on exertion Impacted cerumen of both ears Acute sinusitis Acute conjunctivitis of both eyes Left ureteral calculus Easy bruising Excessive bleeding Blackout Gastric reflux Non-smoker History of carotid artery disease Leg cramps History of stress test Cardiology follow-up encounter History of heart attack History of irregular heartbeat History of kidney stones Fatigue Heart disease Right ureteral calculus Home Medications ?Medication ?Instructions ?Recorded ?Last Taken ?Type aspirin 81 mg tablet,delayed 81 mg PO DAILY BLOOD THINNER 04/04/20 01/06/23 History release ascorbic acid (vitamin C) 500 mg 500 mg PO DAILY@0800 supplement 02/19/23 Unknown History tablet cholecalciferol (vitamin D3) 50 50 mcg PO DAILY SUPPLEMENT 02/21/24 Unknown History mcg (2,000 unit) tablet omeprazole magnesium 20 mg 20 mg PO DAILY GERD #90 caps 05/03/24 Unknown Rx capsule,delayed release metoprolol succinate 25 mg 12.5 mg PO DAILY BLOOD PRESSURE 09/23/24 Unknown History tablet,extended release 24 hr ciprofloxacin HCl 500 mg tablet 500 mg PO BID #10 tabs 09/24/24 Unknown Rx (Cipro) oxycodone 5 mg tablet 5 mg PO Q6H PRN pain 3 days #14 09/24/24 Unknown Rx tabs Allergy/AdvReac Type Severity Reaction Status Date / Time No Known Allergies Allergy Verified 09/23/24 10:11 Family History Brother Colon cancer Diabetes Myocardial infarction Mother Diabetes Myocardial infarction Father Heart disease Surgical History H/O carotid endarterectomy (~01/2023) Hx of tooth extraction Hx of cystostomy History of heart artery stent (12/28/03) History of tonsillectomy History of cataract surgery History of cholecystectomy History of heart bypass surgery (09/30/04) Social History Smoking Status: Never smoker alcohol intake: never substance use type: does not use caffeine: No Review of Systems (Anesthesia) ROS Narrative System reviewed and no additional complaints, except as documented.
--- NOTE | 2024-09-24 10:46 | DCINST_ITS ---
Discharge Instructions Diet Discharge Diet: No restrictions DC O2, CPAP, BIPAP needs Home O2 Discharge instructions: No Dressing / Incision Discharge Activity: Return to Normal Activity and May Not Drive (while taking narcotic pain medications.) Dressing / Incision Call your doctor if you observe: Fever of 101 or Higher Follow Up Care Please Follow Up With: Jem Henriquez MD When: Call [phone] for an appointment Test Results: Test results from this visit will be discussed in further detail at your follow- up appointment, if applicable. Discharge Plan Admission Admit Date/Time: 09/23/24 12:37 Primary Reason for Your Visit: stent on rigth Attending Provider: Jem Henriquez Primary Care Provider: Buddy Bull Discharge Orders/Prescriptions Prescriptions: New ciprofloxacin HCl [Cipro] 500 mg tablet 500 mg PO BID Qty: 10 0RF oxycodone 5 mg tablet 5 mg PO Q6H PRN (Reason: pain) 3 Days Qty: 14 0RF Continued cholecalciferol (vitamin D3) 50 mcg (2,000 unit) tablet 50 mcg PO DAILY ascorbic acid (vitamin C) 500 mg tablet 500 mg PO DAILY@0800 metoprolol succinate 25 mg tablet extended release 24 hr 12.5 mg PO DAILY omeprazole magnesium 20 mg capsule,delayed release(DR/EC) 20 mg PO DAILY Qty: 90 3RF Held aspirin 81 MG tablet,delayed release (DR/EC) 81 mg PO DAILY Hold Instructions: Resume on 10/11/24. Patient Comments: pt reports that pt stopped 01/31/21 for surgery on 02/05/[address] henriquez instructions Referrals / Follow Up: Buddy Bull MD [Primary Care Provider] - Disposition Disposition (needs filled in before D/C Order can be placed): Home, Self Care
--- NOTE | 2024-09-24 11:10 | PCM.OPRPT ---
Operative Report (Standard) Operative Information Date of Procedure: 09/24/24 Pre-Operative Diagnosis: Right proximal ureteral calculi Post-Operative Diagnosis: same Surgery/Procedure Performed: cysto and right stent placement financial foundations associate: No Type of Anesthesia: General RN Documented Start/Stop Times: Operation Date: 09/24/24 10:10 Case Time Anesthesia Start 09/24/24 10:49 Into Room 09/24/24 10:49 Procedure Start 09/24/24 11:04 Procedure End 09/24/24 11:09 Procedure Start Time: 11:04 Procedure Stop Time: 11:11 Select all DRAINS/GRAFTS/IMPLANTS that apply: Drains Drain details: left stent Estimated Blood Loss: 0 Specimen collected: No Description of surgery: Patient was taken back to the operating room after induction of general anesthesia, the patient was placed in dorsolithotomy position. The urethra and genitals were prepped and draped in usual sterile fashion. Using a 21 [place] rigid cystourethroscope the entire length of the urethra was normal then went into the bladder. Identified the trigone the left and right ureteral orifice. I then cannulated the right orifice and advanced a wire up into the kidney. I then backloaded a 5 [place] open ended catheter over the wire and injected contrast to delineate the anatomy. After the retrograde was performed I then used fluoroscopic images and guidance to advanced a wire up into the kidney and over the 0.038 glidewire I advanced a 6 [place] by 26 cm double pigtail stent. I then pulled the 0.038 Glidewire off and the stent coiled in the kidney bladder good position. The bladder was then drained. We confirmed the position of the stent by fluoroscopy. Patient anesthetic was reversed and was taken back to the PACU in good condition. Surgical Findings: stone in right proximal ureter pushed back to renal pelvis Complications Complications: No Admit VTE Documentation VTE Present on Admission: No VTE Mechan Device Prophylaxis: SCD's VTE Pharm Prophylaxis ordered?: No
--- NOTE | 2024-09-24 11:17 | PCM.POST.ANE ---
Anesthesia: Postop Eval I Current Vital Signs Temperature: 97.8 F Pulse Rate: 59 Blood Pressure: 102/58 Respiratory Rate: 16 Pulse Ox: 100 Oxygen Delivery Method: Room Air Assessment Airway patent: Yes Spontaneous unlabored respirations: Yes Mental status: Awake and Calm nausea: No Vomiting: No Anesthesia Complication: No Fluid Hydration Crystalloid volume administer (ml): 200 Total IV fluid infused: 200 Progress Note Anesthesia document: Postop Eval 1 completed: Yes
[2024-09-24] MEDS: Docusate Sodium 100 MG Capsule 200 MG PO (13:18)
[2024-09-24] MEDS: Pantoprazole Sodium 20 MG Tablet PO (13:19)
--- NOTE | 2024-09-24 13:49 | PCM.POSTANE2 ---
Anesthesia Postop Eval I Sum Postop Eval Completion status Anesthesia document: Postop Eval 1 completed: Yes Anesthesia Postop Eval I Summary Anesthesia Postop Eval I Summary: Anesthesia Postop Eval I: Assessment Summary Airway patent Yes 09/24/24 11:19 Spontaneous unlabored Yes 09/24/24 11:19 respirations Mental status Awake,Calm 09/24/24 11:19 nausea No 09/24/24 11:19 Vomiting No 09/24/24 11:19 Anesthesia Postop Eval I: Fluid Summary Crystalloid volume administer 200 09/24/24 11:19 (ml) Colloids volume administered ( ml) Blood Product volume administered (ml) Total IV fluid infused 200 09/24/24 11:19 Anesthesia Postop Eval I: Summary Notes Anesthesia Complication No 09/24/24 11:19 Anesthesia Complication Comment: Post-operative progress note Anesthesia: Postop Eval II Evaluation Mental status: Awake and Calm Pain Level: 0 nausea: No Vomiting: No Complications Anesthesia Complication: No
== END 2024-09-24 14:10 | disposition home or self-care (01) | DRG 661 ==
LOC: ED 12:42 → MS3 12:48
PROVIDERS: Admitting Provider Urology; Emergency Provider Emergency Medicine; PCP Family Medicine; Visit Provider Urology
PROC: 0T768DZ Dilation of Right Ureter with Intraluminal Device, Via Natural or Artificial Opening Endoscopic (ICD-10-PCS; principal; 2024-09-24 10:00)
DX: N13.2 Hydronephrosis with renal and ureteral calculous obstruction (principal); E78.5 Hyperlipidemia, unspecified; I10 Essential (primary) hypertension; K21.9 Gastro-esophageal reflux disease without esophagitis; I25.10 Atherosclerotic heart disease of native coronary artery without angina pectoris; I25.2 Old myocardial infarction; Z80.0 Family history of malignant neoplasm of digestive organs; Z87.442 Personal history of urinary calculi; Z79.82 Long term (current) use of aspirin; Z95.5 Presence of coronary angioplasty implant and graft; Z95.1 Presence of aortocoronary bypass graft; Z90.49 Acquired absence of other specified parts of digestive tract
CPT/HCPCS: 74176; 76000; 80048; 81001; 85025; 99284; A4216; C1769; C2617; J2405

== ENCOUNTER 2024-09-27 06:03 | Day surgery (SDC) | payer MEDICARE, SELFPAY ==
--- NOTE | 2024-09-26 21:37 | PAT.ANESEVAL ---
Pre-Assessment Diagnosis/Proposed Procedure Planned Operative Procedure(s): RIGHT ESWL Anesthesia History Anesthesia History - clinical care coordinator: Anesthesia History - clinical care coordinator Hx Hospitalization Yes: 09/27/24 KIDNEY STONE 09/26/24 15:59 Any Problems With Anesthesia No 09/26/24 15:59 Cholinesterase deficiency No 09/26/24 15:59 You/Your Family Experience No 09/26/24 15:59 fever (hyperthermia) with Relationship Recent Exposure to Contagious No 09/23/24 21:03 Disease Does patient have nerve No 09/26/24 15:59 stimulator Patient instructed to have device shut off --Does patient have Pacemaker or ICD? When Was Last Pacemaker Check QUESTION #4 FULL TEXT: You/Your Family Experience fever (hyperthermia) with Anesthesia Last Oral Intake Last Oral intake: Last Oral Intake NPO since Meds taken in AM with sips of water? Meds patient instructed to take am of surgery PONV PONV - clinical care coordinator: PONV - clinical care coordinator Female No 09/26/24 15:59 HX of Motion Sickness No 09/26/24 15:59 HX of N/V After Surgery No 09/26/24 15:59 Non-Smoker Yes 09/26/24 15:59 Duration of Surgery greater Yes 09/26/24 15:59 than 60 minutes Number of Risk Factors 2 09/26/24 15:59 PONV Score Moderate Risk 09/26/24 15:59 Height & Weight Height & Weight: Anesthesia: Height & Weight Height 5 ft 7 in 09/24/24 07:59 Respiratory Assessment Respiratory Assessment - clinical care coordinator: Respiratory Tract Infection Hx - clinical care coordinator Hx Respiratory Tract Infection No 09/26/24 15:59 STOP Sleep Apnea STOP Sleep Apnea - clinical care coordinator: STOP Sleep Apnea - clinical care coordinator Hx Hypertension Yes: CONTROLLED WITH MED 09/26/24 15:59 Hx Sleep Apnea No 09/26/24 15:59 CPAP BIPAP Do you snore loudly (louder Yes 09/26/24 15:59 than talking or can be heard Do you often feel tired/ No 09/26/24 15:59 fatigued/ sleepy during daytime? Has anyone observed you stop No 09/26/24 15:59 breathing during sleep? STOP Results Positive 09/26/24 15:59 QUESTION #5 FULL TEXT : Do you snore loudly (louder than talking or can be heard through closed doors)? 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 Specify any problems Hx of Preganancy in last 3 N/A 09/26/24 15:59 Months Nurse Filling Out Transfusion DSCHRIBER 09/26/24 15:59 & Questions: Date: 09/26/24 09/26/24 15:59 Time: 16:00 09/26/24 15:59 Patient unable to answer at this time (ie. confused, unrespo /Reproduction History /Reproductive History - clinical care coordinator: /Reproductive Hx- clinical care coordinator Hx Now No 09/26/24 15:59 Gestational Age (in weeks): EDC: Hx Hx Para Hx Section SAB No 09/26/24 15:59 Active Medications Active Medications: Current Medications Generic Name Dose Route Start Last Admin Trade Name Freq PRN Reason Stop Dose Admin Cefazolin Sodium 2 gm/ N/A 20 mls @ 400 mls/hr 09/27/24 07:30 IV 09/27/24 07:32 PREOP ONE [facility] Medical History (Updated 09/26/24 @ 16:08 by Oneyda Velazquez) Easy bruising History of hiatal hernia History of diverticulitis Gastric reflux Shortness of breath on exertion Hypertension History of echocardiogram Ventricular fibrillation Essential hypertension Atherosclerosis of coronary artery of [place] heart without angina pectoris Hyperlipidemia Postoperative pain Wears contact lenses Arthritis Impacted cerumen of both ears Acute sinusitis Acute conjunctivitis of both eyes Left ureteral calculus Blackout Non-smoker History of carotid artery disease Leg cramps History of stress test Cardiology follow-up encounter History of heart attack History of irregular heartbeat History of kidney stones Fatigue Heart disease Right ureteral calculus Home Medications ?Medication ?Instructions ?Recorded ?Last Taken ?Type aspirin 81 mg tablet,delayed 81 mg PO DAILY BLOOD THINNER 04/04/20 09/23/24 History release ascorbic acid (vitamin C) 500 mg 500 mg PO DAILY@0800 supplement 02/19/23 Unknown History tablet cholecalciferol (vitamin D3) 50 50 mcg PO DAILY SUPPLEMENT 02/21/24 Unknown History mcg (2,000 unit) tablet omeprazole magnesium 20 mg 20 mg PO DAILY GERD #90 caps 05/03/24 Unknown Rx capsule,delayed release metoprolol succinate 25 mg 12.5 mg PO DAILY BLOOD PRESSURE 09/23/24 Unknown History tablet,extended release 24 hr ciprofloxacin HCl 500 mg tablet 500 mg PO BID #10 tabs 09/24/24 Unknown Rx (Cipro) oxycodone 5 mg tablet 5 mg PO Q6H PRN pain 3 days #14 09/24/24 Unknown Rx tabs Allergy/AdvReac Type Severity Reaction Status Date / Time No Known Allergies Allergy Verified 09/26/24 15:56 Family History Brother Colon cancer Diabetes Myocardial infarction Mother Diabetes Myocardial infarction Father Heart disease Surgical History (Updated 09/26/24 @ 16:08 by Oneyda Velazquez) Hx of colonoscopy H/O carotid endarterectomy (~01/2023) Hx of tooth extraction Hx of cystostomy History of heart artery stent (12/28/03) History of tonsillectomy History of cataract surgery History of cholecystectomy History of heart bypass surgery (09/30/04) Social History Smoking Status: Never smoker alcohol intake: never substance use type: does not use caffeine: No Audit: Pertinent Findings Pertinent Findings EKG Perinent findings: February 22, 2023. Sinus bradycardia. Right bundle branch block. Atypical T axis possible acute process. Stress test pertinent findings: March 04, 2023. Ejection fraction 67%. No areas of reversibility are noted to suggest ischemia and no previous infarct. Echo (EF%) pertinent findings: March 04, 2023. 65% ejection fraction. No aortic stenosis noted. Consult pertinent findings: February 21, 2024. 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 1. Status post heart bypass surgery. MCGRATH to the diagonal and LAD. Free left radial artery to left circumflex. 2. Hypertension-the importance of medication and blood pressure control was reviewed. Recommendation Anesthesia Recommendation Anesthesia recommendation: OPTIMIZED for anesthesia
[2024-09-27] VITALS (10 sets, daily range): BP systolic 148–176; BP diastolic 66–82; PULSE 57–65; RESP 16–18; TEMP 36.1–36.4; O2SAT 95–100; BMI 25.9
--- NOTE | 2024-09-27 06:06 | RAD_ITS ---
STUDY: X-RAY - ABDOMEN/PELVIS REASON FOR EXAM: Male, 84 years old. RIGHT KIDNEY STONE TECHNIQUE: Single AP view of the abdomen / pelvis. COMPARISON: Comparison is made with prior study December 22, 2021. FINDINGS: Normal visualized lung bases. There is a moderate amount of colonic fecal material. Nonobstructive right intrarenal calculi. The largest calculus is in the lower pole and measures 5.3 mm. This is essentially unchanged. A right-sided double-J ureteral catheter is present. Normal soft tissue structures. There are diffuse degenerative changes of the visualized lumbar spine. RAD/Abdomen Single View IMPRESSION: Right intrarenal calculi. Electronically Signed: Delgado Rodríguez MD at 10:58 EST ,
[2024-09-27] MEDS: 0.9% Normal Saline (1000mL) 1,000 ML 15 ML IV (06:35)
--- NOTE | 2024-09-27 07:06 | PCM.HP.STD ---
HPI - General General Date of Service: 09/27/24 Chief Complaint: Right kidney stone HPI Narrative STALIN MATA, is a 84 M who presents for shockwave lithotripsy he has a stone on the right side he had a stent placed over the weekend for severe pain he has 2 stones plan to treat the stone today with shockwave lithotripsy. The patient is off all blood thinners. We talked about the procedure in the preoperative setting talked about the risk of the procedure include the risk of bleeding, risk of infection, risk that he may need to have more than 1 surgical procedure for the stone, possible that the stone may not break all the way, possible the stone fragments may get stuck in the ureter coming down. After the shockwave is done hopefully successful then I will see him next week with a KUB to remove the stone all questions were addressed organ to proceed with shockwave lithotripsy. FORMERLY [facility], [facility]–1983 Medical History (Updated 09/26/24 @ 16:08 by Oneyda Velazquez) Easy bruising History of hiatal hernia History of diverticulitis Gastric reflux Shortness of breath on exertion Hypertension History of echocardiogram Ventricular fibrillation Essential hypertension Atherosclerosis of coronary artery of [place] heart without angina pectoris Hyperlipidemia Postoperative pain Wears contact lenses Arthritis Impacted cerumen of both ears Acute sinusitis Acute conjunctivitis of both eyes Left ureteral calculus Blackout Non-smoker History of carotid artery disease Leg cramps History of stress test Cardiology follow-up encounter History of heart attack History of irregular heartbeat History of kidney stones Fatigue Heart disease Right ureteral calculus Home Medications ?Medication ?Instructions ?Recorded ?Last Taken ?Type aspirin 81 mg tablet,delayed 81 mg PO DAILY BLOOD THINNER 04/04/20 09/23/24 History release ascorbic acid (vitamin C) 500 mg 500 mg PO DAILY@0800 supplement 02/19/23 09/26/24 History tablet cholecalciferol (vitamin D3) 50 50 mcg PO DAILY SUPPLEMENT 02/21/24 09/26/24 History mcg (2,000 unit) tablet omeprazole magnesium 20 mg 20 mg PO DAILY GERD #90 caps 05/03/24 09/27/24 Rx capsule,delayed release metoprolol succinate 25 mg 12.5 mg PO DAILY BLOOD PRESSURE 09/23/24 09/26/24 History tablet,extended release 24 hr ciprofloxacin HCl 500 mg tablet 500 mg PO BID #10 tabs 09/24/24 09/27/24 Rx (Cipro) oxycodone 5 mg tablet 5 mg PO Q6H PRN pain 3 days #14 09/24/24 Unknown Rx tabs Allergy/AdvReac Type Severity Reaction Status Date / Time No Known Allergies Allergy Verified 09/27/24 06:31 Family History Brother Colon cancer Diabetes Myocardial infarction Mother Diabetes Myocardial infarction Father Heart disease Surgical History (Updated 09/26/24 @ 16:08 by Oneyda Velazquez) Hx of colonoscopy H/O carotid endarterectomy (~01/2023) Hx of tooth extraction Hx of cystostomy History of heart artery stent (12/28/03) History of tonsillectomy History of cataract surgery History of cholecystectomy History of heart bypass surgery (09/30/04) Social History Smoking Status: Never smoker alcohol intake: never substance use type: does not use caffeine: No Vital Signs Vital Signs Vital Signs: 09/27/24 06:32 09/27/24 06:32 Temperature 97 F L Temperature Source Temporal Pulse Rate 60 Respiratory Rate 16 Respiratory Pattern Normal Blood Pressure 167/66 H Blood Pressure Mean 99 Blood Pressure Source Monitor Blood Pressure Position Semi-Fowlers Blood Pressure Location Left Arm Pulse Ox 100 Oxygen Delivery Method Room Air Weight Weight: 75 kg Body Mass Index (BMI) 25.9 Physical Exam Const alert and oriented x3 General Appearance: cooperative HEENT normocephalic, head/scalp atraumatic, EAC's normal and TM's normal bilaterally Eyes PERRL and EOMs intact bilaterally Pupil: sluggish Neck no lymphadenopathy, supple and no JVD General: trachea midline Lymph Lymphatic: no lymphadenopathy noted, lymphedema and lymphadenopathy Resp normal respiratory effort, normal air movement and clear to auscultation bilaterally Cardio regular rate, regular rhythm and peripheral pulses 2+ throughout GI soft to palpation, non-tender and non-distended Extremity normal capillary refill and no clubbing, cyanosis or edema General Extremity: no tenderness to palpation of joints or extremities Skin no rashes or lesions noted General Skin Exam: turgor normal Lesions: no lesions Rashes: no rashes Neuro CN's II-XII intact bilaterally Speech: speech normal Motor Exam: strength 5/5 throughout; Negative for general weakness Psych thought process normal, cooperative and affect normal Appearance: appropriate Assessment & Plan Assessment/Plan (1) Uropathy, obstructive: (2) Intractable pain: (3) Hydroureter: (4) Ureteral calculi:
--- NOTE | 2024-09-27 07:20 | PRE.ANES_ITS ---
ASA Classification* ASA Classification ASA Classification: 3 Assessment & Plan Anesthesia* Anesthesia Assessment Anesthesia Assessment: Discussed sedation and/or anesthesia options, risks, benefits, and alternatives with patient/parents/legal guardian/POA. Questions invited. The patient/parents/legal guardian/POA seems to understand and agrees to proceed with anesthesia plan. Reviewed the physical assessment, medical history, allergy history and patient home medications list prior to surgery/procedure/anesthetic and documented any changes. Performed airway and anesthesia risk assessments. Anesthesia Type Anesthesia Type: General (Discussed GA LMA (GERD well controlled per patient) with backup GETA ) History Source History Obtained from:: Patient and Chart Anesthesia Focused Assessment* Temperature: 97 F Pulse Rate: 60 Blood Pressure: 167/66 Respiratory Rate: 16 Pulse Ox: 100 Oxygen Delivery Method: Room Air Airway Assessment Mouth opens: >3 cm Mallampati Score: II Teeth Condition: Caps/Crowns (Implants in mouth, not loose per patient. ) and Dentures (Upper plate, screwed in, unable to remove. ) Neck Range of motion (ROM): Full ROM Focused Labs Anesthesia Preop lab: CBC WBC 5.7 K/mm3 (4.4-11.0) 09/23/24 10:30 RBC 4.64 M/mm3 (4.6-6.2) 09/23/24 10:30 Hgb 14.5 g/dL (13.0-16.5) 09/23/24 10:30 Hct 42.3 % (40-54) 09/23/24 10:30 Plt Count 168 K/mm3 (150-450) 09/23/24 10:30 CHEMISTRY Potassium 3.8 mmol/L (3.5-5.1) 09/23/24 10:30 Sodium 138 mmol/L (136-145) 09/23/24 10:30 BUN 13 mg/dL (7-18) 09/23/24 10:30 Creatinine 1.59 mg/dL (0.70-1.30) H 09/23/24 10:30 Glucose 188 mg/dL (74-106) H 09/23/24 10:30 COAG Pre-Assessment Diagnosis/Proposed Procedure Planned Operative Procedure(s): RIGHT ESWL Anesthesia History 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 When Was Last Pacemaker Check QUESTION #4 FULL TEXT: You/Your Family Experience fever (hyperthermia) with Anesthesia Last Oral Intake Last Oral intake: Last Oral Intake NPO since 00:00 09/27/24 06:32 Meds taken in AM with sips of Yes 09/27/24 06:32 water? Meds patient instructed to PRILOSEC. 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 - vibrator operator Female No 09/26/24 15:59 HX of Motion Sickness No 09/26/24 15:59 HX of N/V After Surgery No 09/26/24 15:59 Non-Smoker Yes 09/26/24 15:59 Duration of Surgery greater Yes 09/26/24 15:59 than 60 minutes Number of Risk Factors 2 09/26/24 15:59 PONV Score Moderate Risk 09/26/24 15:59 Height & Weight Height & Weight: Anesthesia: Height & Weight Height 5 ft 7 in 09/27/24 06:32 Weight: 75 kg 09/27/24 06:32 Body Mass Index (BMI) 25.9 09/27/24 06:32 Respiratory Assessment Respiratory Assessment - vibrator operator: Respiratory Tract Infection Hx - vibrator operator Hx Respiratory Tract Infection No 09/26/24 15:59 STOP Sleep Apnea STOP Sleep Apnea - vibrator operator: STOP Sleep Apnea - vibrator operator Hx Hypertension Yes: CONTROLLED WITH MED 09/26/24 15:59 Hx Sleep Apnea No 09/26/24 15:59 CPAP BIPAP Do you snore loudly (louder Yes 09/26/24 15:59 than talking or can be heard Do you often feel tired/ No 09/26/24 15:59 fatigued/ sleepy during daytime? Has anyone observed you stop No 09/26/24 15:59 breathing during sleep? STOP Results Positive 09/26/24 15:59 QUESTION #5 FULL TEXT : Do you snore loudly (louder than talking or can be heard through closed doors)? 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 Specify any problems Hx of Preganancy in last 3 N/A 09/26/24 15:59 Months Nurse Filling Out Transfusion DSCHRIBER 09/26/24 15:59 & Questions: Date: 09/26/24 09/26/24 15:59 Time: 16:00 09/26/24 15:59 Patient unable to answer at this time (ie. confused, unrespo /Reproduction History /Reproductive History - vibrator operator: /Reproductive Hx- vibrator operator Hx Now No 09/26/24 15:59 Gestational Age (in weeks): EDC: Hx Hx Para Hx Section SAB No 09/26/24 15:59 Active Medications Active Medications: Current Medications Generic Name Dose Route Start Last Admin Trade Name Freq PRN Reason Stop Dose Admin Cefazolin Sodium 2 gm/ N/A 20 mls @ 400 mls/hr 09/27/24 07:30 IV 09/27/24 07:32 PREOP ONE Sodium Chloride 1,000 mls @ 15 mls/hr 09/27/24 06:10 09/27/24 06:35 IV 10/02/24 19:29 15 mls/hr .Q48H SMITH Administration Protocol PFSH Medical History Easy bruising History of hiatal hernia History of diverticulitis Gastric reflux Shortness of breath on exertion Hypertension History of echocardiogram Ventricular fibrillation Essential hypertension Atherosclerosis of coronary artery of [place] heart without angina pectoris Hyperlipidemia Postoperative pain Wears contact lenses Arthritis Impacted cerumen of both ears Acute sinusitis Acute conjunctivitis of both eyes Left ureteral calculus Blackout Non-smoker History of carotid artery disease Leg cramps History of stress test Cardiology follow-up encounter History of heart attack History of irregular heartbeat History of kidney stones Fatigue Heart disease Right ureteral calculus Home Medications ?Medication ?Instructions ?Recorded ?Last Taken ?Type aspirin 81 mg tablet,delayed 81 mg PO DAILY BLOOD THINNER 04/04/20 09/23/24 History release ascorbic acid (vitamin C) 500 mg 500 mg PO DAILY@0800 supplement 02/19/23 09/26/24 History tablet cholecalciferol (vitamin D3) 50 50 mcg PO DAILY SUPPLEMENT 02/21/24 09/26/24 History mcg (2,000 unit) tablet omeprazole magnesium 20 mg 20 mg PO DAILY GERD #90 caps 05/03/24 09/27/24 Rx capsule,delayed release metoprolol succinate 25 mg 12.5 mg PO DAILY BLOOD PRESSURE 09/23/24 09/26/24 History tablet,extended release 24 hr ciprofloxacin HCl 500 mg tablet 500 mg PO BID #10 tabs 09/24/24 09/27/24 Rx (Cipro) oxycodone 5 mg tablet 5 mg PO Q6H PRN pain 3 days #14 09/24/24 Unknown Rx tabs Allergy/AdvReac Type Severity Reaction Status Date / Time No Known Allergies Allergy Verified 09/27/24 06:31 Family History Brother Colon cancer Diabetes Myocardial infarction Mother Diabetes Myocardial infarction Father Heart disease Surgical History Hx of colonoscopy H/O carotid endarterectomy (~01/2023) Hx of tooth extraction Hx of cystostomy History of heart artery stent (12/28/03) History of tonsillectomy History of cataract surgery History of cholecystectomy History of heart bypass surgery (09/30/04) Social History Smoking Status: Never smoker alcohol intake: never substance use type: does not use caffeine: No Review of Systems (Anesthesia) ROS Narrative System reviewed and no additional complaints, except as documented.
[2024-09-27] MEDS: Cefazolin 2 GM in Syringe IV (07:35)
--- NOTE | 2024-09-27 07:39 | PCM.DC ---
Discharge Instructions Diet Discharge Diet: No restrictions DC O2, CPAP, BIPAP needs Home O2 Discharge instructions: No Dressing / Incision Discharge Activity: Return to Normal Activity and May Not Drive (while taking narcotic pain medications.) Dressing / Incision Call your doctor if you observe: Fever of 101 or Higher Follow Up Care Please Follow Up With: Jem Henriquez MD When: Call [phone] for an appointment Test Results: Test results from this visit will be discussed in further detail at your follow-up appointment, if applicable. Discharge Plan Admission Primary Reason for Your Visit: Right ESWL Attending Provider: Jem Henriquez Primary Care Provider: Buddy Bull Instructions Print Language: [place] Discharge Orders/Prescriptions Prescriptions: New ciprofloxacin HCl [Cipro] 500 mg tablet 500 mg PO BID Qty: 10 0RF oxycodone 5 mg tablet 5 mg PO Q6H PRN (Reason: pain) 3 Days Qty: 14 0RF Continued cholecalciferol (vitamin D3) 50 mcg (2,000 unit) tablet 50 mcg PO DAILY ascorbic acid (vitamin C) 500 mg tablet 500 mg PO DAILY@0800 metoprolol succinate 25 mg tablet extended release 24 hr 12.5 mg PO DAILY ciprofloxacin HCl [Cipro] 500 mg tablet 500 mg PO BID Qty: 10 0RF omeprazole magnesium 20 mg capsule,delayed release(DR/EC) 20 mg PO DAILY Qty: 90 3RF Held aspirin 81 MG tablet,delayed release (DR/EC) 81 mg PO DAILY Hold Instructions: Resume on 10/11/24. Patient Comments: pt reports that pt stopped 01/31/21 for surgery on 02/05/[address] henriquez instructions No Action oxycodone 5 mg tablet 5 mg PO Q6H PRN (Reason: pain) 3 Days Qty: 14 0RF Referrals / Follow Up: Jem Henriquez MD [Med Staff - Active Staff] - Buddy Bull MD [Primary Care Provider] - Disposition Disposition (needs filled in before D/C Order can be placed): Home, Self Care
--- NOTE | 2024-09-27 07:43 | OP.PCM_ITS ---
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 In the preoperative area and x-ray was done to confirm the location of the stone. The x-ray was reviewed and the stone location was reviewed. In the preoperative setting I spoke with the patient regarding the treatment of the stone how the treatment would be conducted and the expectations after surgery. The patient understands there is a risk of bleeding and infection. Also discussed the very rare risk of hematoma or damage to the kidney. We also discussed the risk that the shockwave machine will fail to break the stone adequately and that the patient may need other surgical procedures. I also discussed the possibility that the patient may need a stent after the procedure. After reviewing the procedure with the patient, the patient is signed the consent form all the patient's questions were addressed and was taken back to the operating room for treatment of a kidney stone. Patient was taken back to the operating room, the patient was identified by the nursing staff, I identified the side of the treatment and the patient side of treatment had been marked by my initials. The patient underwent general anesthetic and was placed supine on the lithotripter table. I then used fluoroscopy to identify the stone on the Right side. I then positioned the patient under the lithotripter and I used triangulation technique to identify the location of the stone and then I made sure that the stone was engaged in the F2 focal point of F2 Donier lithoprior machine. Once the patient was positioned appropriately and the stone was identified and placed in the F2 focal point of the lithotripter machine I then proceeded with shockwave lithotripsy. In the beginning the shockwave was delivered at a rate of 90 shocks per minute, anesthesia monitored the EKG for any ectopy. The power was slowly increased to 5 kV and subsequently at the 7 kV. I then proceeded with the treatment with shock wave therapy and around during the treatment to make sure the stone stayed in the F2 focal point during the entire treatment and after 3000 shockwaves were delivered to the stone under fluoroscopic guidance the treatment was completed. The patient was given instructions to call the office to make an a follow-up a ppointment with an xray to evaluate the success of the treatment, pateint understands that its possible the stones may need another procedure.At this point the patient's anesthetic was reversed patient was extubated and taken back to the PACU in stable condition. Surgical Findings: stones in right kidney broke up well but has many fragments, may need 2nd treatment., monitored with flurosocopy Complications Complications: No Admit VTE Documentation VTE Present on Admission: No VTE Mechan Device Prophylaxis: SCD's VTE Pharm Prophylaxis ordered?: No
--- NOTE | 2024-09-27 08:22 | PCM.POST.ANE ---
Anesthesia: Postop Eval I Current Vital Signs Temperature: 97.6 F Pulse Rate: 65 Blood Pressure: 148/76 Respiratory Rate: 16 Pulse Ox: 99 Oxygen Delivery Method: Room Air Assessment Airway patent: Yes Spontaneous unlabored respirations: Yes Mental status: Awake and Calm nausea: No Vomiting: No Anesthesia Complication: No Fluid Hydration Crystalloid volume administer (ml): 600 Total IV fluid infused: 600 Progress Note Anesthesia document: Postop Eval 1 completed: Yes
--- NOTE | 2024-09-27 08:41 | POSTOPAN2_ITS ---
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.GDOTT Anesthesia Postop Eval I: Fluid Summary Crystalloid volume administer 600 09/27/24 08:23 CANE FLUME FEEDING MACHINE OPERATOR.GDOTT (ml) Colloids volume administered ( ml) Blood Product volume administered (ml) Total IV fluid infused 600 09/27/24 08:23 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
--- NOTE | 2024-09-27 08:41 | PCM.POSTANE2 ---
Anesthesia Postop Eval I Sum Postop Eval Completion status Anesthesia document: Postop Eval 1 completed: Yes Anesthesia Postop Eval I Summary Anesthesia Postop Eval I Summary: Anesthesia Postop Eval I: Assessment Summary Airway patent Yes 09/27/24 08:23 NAVIGATING OFFICER.GDOTT Spontaneous unlabored Yes 09/27/24 08:23 NAVIGATING OFFICER.GDOTT respirations Mental status Awake,Calm 09/27/24 08:23 NAVIGATING OFFICER.GDOTT nausea No 09/27/24 08:23 NAVIGATING OFFICER.GDOTT Vomiting No 09/27/24 08:23 NAVIGATING OFFICER.GDOTT Anesthesia Postop Eval I: Fluid Summary Crystalloid volume administer 600 09/27/24 08:23 NAVIGATING OFFICER.GDOTT (ml) Colloids volume administered ( ml) Blood Product volume administered (ml) Total IV fluid infused 600 09/27/24 08:23 NAVIGATING OFFICER.GDOTT Anesthesia Postop Eval I: Summary Notes Anesthesia Complication No 09/27/24 08:23 NAVIGATING OFFICER.GDOTT Anesthesia Complication Comment: Post-operative progress note Anesthesia: Postop Eval II Evaluation Mental status: Awake Pain Level: 0 nausea: Yes Vomiting: No Progress Note Post-operative progress note: Patient given Zofran in PACU Complications Anesthesia Complication: No
== END 2024-09-27 10:01 | disposition home or self-care (01) ==
LOC: SDC 06:05 → AC 06:07
PROVIDERS: PCP Family Medicine; Referring Provider Urology; Visit Provider Urology
PROC: (CPT 50590; principal; 2024-09-27 07:20)
DX: N20.0 Calculus of kidney (principal); I25.10 Atherosclerotic heart disease of native coronary artery without angina pectoris; Z80.0 Family history of malignant neoplasm of digestive organs; Z79.891 Long term (current) use of opiate analgesic; K21.9 Gastro-esophageal reflux disease without esophagitis; E78.5 Hyperlipidemia, unspecified; I10 Essential (primary) hypertension; Z87.19 Personal history of other diseases of the digestive system; Z79.82 Long term (current) use of aspirin; Z95.5 Presence of coronary angioplasty implant and graft; I25.2 Old myocardial infarction; Z95.1 Presence of aortocoronary bypass graft; Z90.49 Acquired absence of other specified parts of digestive tract; N13.4 Hydroureter
CPT/HCPCS: 50590; 00873; 74018; J2405

== ENCOUNTER → 2024-10-05 | Outpatient (CLI) | payer MEDICARE, SELFPAY ==
--- NOTE | 2024-10-05 | CALC_PTH ---
PATIENT: STALIN MATA LOC: RAD U#:[id number] AGE/SX: 84/M ROOM: RE10/05/[address]: Dr. Jem Henriquez MD : [id number] BED: DIS: 10/05/2024 SPEC #: [id number] RECD: 10/05/24 15:00 STATUS: RADHA RECachorro #: [id number] ANA: 10/05/24 00:[address]: Jem Henriquez DEPT: SURGICAL PATHOLOGY RECD BY: Bo Dickinson ENTERED: 10/06/24 08:34 SP TYPE: Calculi OTHR DR: Dr. Buddy Bull MD Tissues: CALCULI Procedures: Surgery Specimen Level I HEADER OPERATION: Not noted PRE-OP DIAGNOSIS: Calculus of kidney TISSUE SUBMITTED: Calculi GROSS DIAGNOSIS A fragment of stone, clinically urinary stone (gross only). 10/06/2024 COMMENT The calculus is submitted in its entirety for chemical stone analysis. The results from this study will be reported separately. GROSS DESCRIPTION Received without fixative labeled with the patient's name and designated stone analysis. The specimen consists of a fragment of black stone measuring 0.2 x 0.2 x 0.1 cm. The entire specimen is submitted for stone analysis. 10/06/2024 CPT: 15099
--- NOTE | 2024-10-05 09:31 | RAD_ITS ---
PROCEDURE: ABDOMEN SINGLE VIEW REASON FOR EXAM: Renal calculus. TECHNIQUE: Single view abdomen. COMPARISON: Abdomen study of 12/22/2021 RAD/Abdomen Single View IMPRESSION: The region of the hemidiaphragms is excluded from view. Pelvic surgical clip a gain noted. Right upper quadrant abdominal surgical clips are again seen. A right ureteral stent is satisfactorily in place, with adjacent calculi seen a t the level of the proximal right ureter. At least 3 small right renal calculi are additionally seen. No left renal calculus is identified, though evaluation is limited by overlying bowel. The bowel-gas pattern is otherwise unremarkable. Reading Location: [id number]
[2024-10-12 05:06] LABS: Ca Oxalate, Monohydrate 100 % (.); Size 3x2 mm (.)
== END | disposition home or self-care (01) ==
PROVIDERS: PCP Family Medicine; Referring Provider Urology; Visit Provider Urology
DX: N20.0 Calculus of kidney (principal)
CPT/HCPCS: 74018; 82360; 88300

== ENCOUNTER → 2024-10-06 | Outpatient (CLI) | payer MEDICARE, SELFPAY ==
[2024-10-06 08:47] LABS: Hematocrit 42.6 % (40-54); Mean Corp Hgb Conc 32.9 g/dL (32-36); Mean Corpuscular Hgb 30.3 pg (27.0-32.0); Mean Corpuscular Volume 92.2 fL (80-94); Platelet Count 191 K/mm3 (150-450); RBC Distribution Width CV 12.5 % (11.6-14.6); RBC Distribution Width SD 42.6 fl (35.1-43.9); Red Blood Count 4.62 M/mm3 (4.6-6.2); White Blood Count 5.9 K/mm3 (4.4-11.0)
[2024-10-06 09:14] LABS: Anion Gap 6 (5-15); BUN 13 mg/dL (7-18); BUN/Creat Ratio 9.7 RATIO (10-20); Calcium,Total 8.8 mg/dL (8.5-10.1); Chloride 106 mmol/L (98-107); Creatinine, Serum 1.34 mg/dL (0.70-1.30); EST Glomerular Filtration Rate 54 mL/min (>60); Est Glom Filt Rate - Afr Amer 65 mL/min (>60); Glucose 101 mg/dL (74-106); Potassium 3.8 mmol/L (3.5-5.1); Sodium Level 138 mmol/L (136-145)
== END | disposition home or self-care (01) ==
LOC: PSN 07:38
PROVIDERS: PCP Family Medicine; Referring Provider Urology; Visit Provider Urology
DX: Z01.810 Encounter for preprocedural cardiovascular examination (principal); Z01.812 Encounter for preprocedural laboratory examination
CPT/HCPCS: 36415; 80048; 85027; 93005

== ENCOUNTER → 2025-01-11 | Outpatient (CLI) | payer MEDICARE, SELFPAY ==
--- NOTE | 2025-01-11 10:54 | CDU_ITS ---
Reason For Study Reason For Study: S/P L Carotid Stent Rt. Velocities/BP Lt. Velocities/BP Prox CCA 102.3/7.7 cm/sec. Prox CCA 105.2/23.0 cm/sec. Mid CCA 80.2/12.6 cm/sec. Mid CCA 60.0/14.9 cm/sec. Dist CCA 72.8/18.8 cm/sec. Dist CCA, Pre Stent - 53.4/13.8 cm/s. Prox ICA 64.6/15.5 cm/sec. Dist CCA, Prox Stent - 43.5/13.8 cm/s. Mid ICA 58.7/19.3 cm/sec. Bulb, Mid Stent - 48.6/13.0 cm/s. Dist ICA 56.3/23.2 cm/sec. Prox ICA, Dist Stent - 46.9/7.2 cm/s. Rt. ICA/CCA = 0.8. Mid ICA, Dist to Stent - 40.0/13.9 cm/s. Prox ECA 72.0/2.0 cm/sec. Dist ICA 50.6/15.4 cm/sec. Rt. Vert. 48.7/14.7 cm/sec. Lt. ICA/CCA = 0.8. Prox ECA 382.2/0.0 cm/sec. Lt. Vert. 62.1/17.9 cm/sec. Right Extracranial There is homogeneous, smooth atherosclerotic plaque noted in the right common carotid artery. There is homogeneous, smooth atherosclerotic plaque noted in the right internal carotid artery. There is homogeneous, smooth atherosclerotic plaque noted in the right external carotid artery. Antegrade flow is noted in the right vertebral artery. Left Extracranial There is homogeneous, smooth atherosclerotic plaque noted in the left common carotid artery. Stent noted in dist CCA to prox ICA. There is heterogeneous, irregular atherosclerotic plaque noted in the left internal carotid artery. There is homogeneous, smooth atherosclerotic plaque noted in the left external carotid artery. Procedure Carotid Duplex [id number]. This is a Carotid Duplex examination using B-mode, color flow and specral Doppler. Exam performed in department. VL/Carotid Duplex Ultrasound Interpretation Summary Mild (<50%) stenosis right extracranial internal carotid. Mild (<50%) stenosis left extracranial internal carotid. Patent and antegrade vertebrals bilaterally. Ordering Physician: Tejal Clark Referring Physician: Tejal Clark Performed By: Susanna Everett RVT
== END | disposition home or self-care (01) ==
LOC: CVS 10:54
PROVIDERS: PCP Family Medicine; Referring Provider Physician Assistant; Visit Provider Physician Assistant
DX: Z48.812 Encounter for surgical aftercare following surgery on the circulatory system (principal); I65.22 Occlusion and stenosis of left carotid artery
CPT/HCPCS: 93880

== ENCOUNTER → 2025-05-04 | Outpatient (CLI) | payer MEDICARE, SELFPAY ==
--- OUTSIDE RECORDS SUMMARY | 2025-05-04 06:56 | XMS RPT_ITS | CCD ---
Author Organization [facility]iniSy[facility] Care Team Providers Care Public Relations Specialist Name Role Phone BUDDY MELARA MD Primary Care Physician BUDDY MELARA MD Primary Care Unavailable MELINA PORTILLO CNP Attending Unavailable BUDDY MELARA MD Primary Care Unavailable MELINA PORTILLO CNP Attending Unavailable Dr. Buddy Melara Primary Care Provider Dr. Buddy Melara Referring Provider Dr. Pedro Ruiz Attending Provider DAGO Bacon Attending Provider DAGO Hendrickson Referring Provider Dr. Ck Gould Attending Provider Dr. Pedro Ruiz Referring Provider Dr. Pedro Ruiz Admit Provider Dr. Pedro Ruiz Other Provider Dr. Ck Gould Referring Provider Dr. Ck Gould Other Provider Dr. Buddy Melara Primary Care Provider Dr. Pedro Ruiz Attending Provider Dr. Buddy Melara MD Primary Care Provider José LINDO, Dr. Shelton Emergency Provider Martinez LINDO, Dr. Jem Baker Admit Provider Martinez LINDO, Dr. Jem Baker Attending Provider [phone] Martinez LINDO, Dr. Jem Baker Referring Provider Dr. Ck Gould MD Attending Provider Tejal Watkins Attending Provider [phone] Tejal Watkins Referring Provider [phone] Pedro Ruiz MD Attending Provider Jorgito LINDO, Dr. Goodwin Primary Care Provider Jorgito LINDO, Dr. Goodwin Referring Provider Bryanna LINDO, Dr. Stover Attending Provider [phone] Melara, Buddy Primary Care Unavailable Bryanna, Ivanhoe Attending Unavailable Martinez, Peter Referring Unavailable Melara, Buddy Referring Unavailable Melara, Buddy Primary Care Unavailable Bryanna, Ivanhoe Attending Unavailable Martinez, Peter Attending Unavailable Melara, Buddy Primary Care Unavailable Bryanna, Ivanhoe Referring Unavailable Melara, Buddy Primary Care Unavailable Bryanna, Ck Attending Unavailable Clark, Tejal Attending Unavailable Clark, Tejal Referring Unavailable Melara, Buddy Primary Care Unavailable Melara, Buddy Primary Care Unavailable Martinez, Peter Attending Unavailable Martinez, Peter Referring Unavailable Melara, Buddy Primary Care Unavailable Martinez, Peter Attending Unavailable Martinez, Peter Admitting Unavailable Melara, Buddy Primary Care Unavailable Martinez, Peter Attending Unavailable Martinez, Peter Referring Unavailable Martinez, Peter Attending Unavailable Melara, Buddy Primary Care Unavailable Martinez, Peter Referring Unavailable Clark, Tejal Attending Unavailable Melara, Buddy Referring Unavailable Melara, Buddy Primary Care Unavailable Clark, Tejal Referring Unavailable Melara, Buddy Primary Care Unavailable Pedro Ruiz Attending Unavailable Medications Current Medications Medication Drug Class(es) Dates Sig (Normalized) Sig (Original) ascorbic acid 500 mg oral tablet (11 sources) Vitamin C Start: 2023 take 1 tablet by mouth once daily Ascorbic Acid (Vitamin C) 500 mg tablet Active 500 mg PO DAILY@799February 19, 2023 3:38pm supplement Start: 04-04-2020 take 500 mg by mouth once merlene y Ascorbic Acid (Vitamin C) Active 500 MG PO DAILY@799April 04, 2020 2:39pm Start: 04-04-2020 End: 2023 take 2 tablets by mouth once daily Ascorbic Acid (Vitamin C) 500 MG tablet Discontinued 1000 mg PO DAILY@0800 April 04, 2020 12:00am 2023 3:39pm supplement Start: 04-04-2020 End: 2023 take 1000 mg by mouth once daily Ascorbic Acid (Vitamin C) Discontinued 1000 MG PO DAILY@0800 April 04, 2020 12:00am 2023 3:39pm aspirin 81 mg delayed release oral tablet (8 sources) Platelet Aggregation Inhibitor, Nonsteroidal Anti-inflammatory Drug Start: 04-04-2020 take 1 tablet by mouth once daily Aspirin 81 MG tablet,delayed release (DR/EC) Active 81 mg PO DAILY April 04, 2020 12:00am BLOOD THINNER Start: 09-15-2019 take 1 dose by mouth once merlene y aspirin Dose : 81 mg =, Oral, qDay, 0 Refill(s) Start Date: 09/15/19 Status: Ordered cholecalciferol 0.05 mg oral tablet (8 sources) Vitamin D Start: 02-21-2024 take 1 tablet by mouth once daily Cholecalciferol (Vitamin D3) 50 mcg (2,000 unit) tablet Active 50 ug PO DAILY February 21, 2024 12:00am SUPPLEMENT Start: 09-18-2020 take 10 ug by mouth once daily Cholecalciferol (Vitamin D3) Active 10 MCG PO DAILY September 18, 2020 3:07pm Start: 09-18-2020 End: 02-21-2024 take 1 capsule by mouth once daily Cholecalciferol (Vitamin D3) 10 mcg (400 unit) capsule Discontinued 125 ug PO DAILY September 18, 2020 1:00am February 21, 2024 10:30am supplement omeprazole 20 mg delayed release oral capsule (10 sources) Proton Pump Inhibitor Start: 04-04-2020 End: 05-03-2024 take 1 capsule by mouth once daily Omeprazole Magnesium 20 mg capsule,delayed release(DR/EC) Active 20 mg PO DAILY May 03, 2024 10:54am GERD Vitamin C 500 mg oral tablet (2 sources) Start: 09-05-2019 Vitamin C 500 mg oral tablet Dose : 500 mg = 1 tab(s), Oral, qDay, # 30 tab(s), 0 Refill(s) Start Date: 09/05/19 Status: Ordered Vitamin D3 (2 sources) Start: 12-13-2020 Vitamin D3 Dos e : 400 unit(s) = 1 tab(s), Oral, Daily, 0 Refill(s) Start Date: 12/13/20 Status: Ordered Completed/Discontinued Medications Medication Drug Class(es) Dates Sig (Normalized) Sig (Original) acetaminophen 325 mg / HYDROcodone bitartrate 5 mg oral tablet (12 sources) Opioid Agonist Start: 04-17-2020 End: 04-22-2020 Hydrocodone-Acetami nophen 1 EACH tablet Discontinued 1 NMA PO EVERY 4 HOURS NEEDED as needed for Pain Score 1-10/10 20 5 0 April 17, 2020 April 21, 2020 12:00am April 22, 2020 12:02am Personal history of urinary calculi Start: 04-17-2020 End: 04-22-2020 Hydrocodone-Acetaminophen Di scontinued 1 EACH PO EVERY 4 HOURS NEEDED 20 5 April 17, 2020 April 22, 2020 12:02am Start: 04-05-2020 End: 04-10-2020 Hydrocodone-Acetaminophen 1 EACH tablet Discontinued 1 NMA PO EVERY 4 HOURS NEEDED as needed for Pain Score 1-10/10 20 5 0 April 05, 2020 April 09, 2020 12:00am April 10, 2020 12:03am Personal history of urinary calculi Start: 04-05-2020 End: 04-10-2020 Hydrocodone-Acetaminophen Di scontinued 1 EACH PO EVERY 4 HOURS NEEDED 20 5 April 05, 2020 April 10, 2020 12:03am acetaminophen 325 mg / oxyCODONE hydrochloride 5 mg oral tablet (6 sources) Opioid Agonist Start: 02-05-2021 End: 12-08-2022 Oxycodone-Acetaminophen (Percocet) 5-325 mg tablet Discontinued 1 {tbl} PO Q4H as needed for pain 10 7 0 February 05, 2021 December 08, 2022 2:58pm Calculus of left ureter Calculus of ureter amoxicillin 500 mg oral capsule (5 sources) Penicillin-class Antibacterial Start: 12-09-2022 End: 12-19-2022 take 1 capsule by mouth three times daily Amoxicillin 500 mg capsule Discontinued 500 mg PO THREE TIMES A DAY 30 10 0 December 09, 2022 12:00am December 18, 2022 12:00am December 19, 2022 12:13am ciprofloxacin 500 mg oral tablet (20 sources) Quinolone Antimicrobial Start: 09-24-2024 End: 01-26-2025 take 1 tablet by mouth twice daily Ciprofloxacin Hcl (Cipro) 500 mg tablet Discontinued 500 mg PO TWICE A DAY 10 0 September 27, 2024 1:00am January 26, 2025 3:15pm Start: 02-05-2021 End: 12-08-2022 take 1 tablet by mouth twice daily Ciprofloxacin Hcl (Cipro) 500 mg tablet Discontinued 500 mg PO TWICE A DAY 10 February 05, 2021 12:00am December 08, 2022 2:58pm Start: 04-09-2020 End: 09-18-2020 take 1 tablet by mouth once daily Ciprofloxacin Hcl 500 MG tablet Discontinued 500 mg PO DAILY April 09, 2020 9:13am September 18, 2020 3:03pm Start: 04-05-2020 End: 04-09-2020 take 1 tablet by mouth twice daily Ciprofloxacin Hcl 500 MG tablet Discontinued 500 mg PO TWICE A DAY 10 April 05, 2020 12:00am April 09, 2020 9:13am ibuprofen 400 mg oral tablet (6 sources) Nonsteroidal Anti-inflammatory Drug Start: 04-04-2020 End: 09-18-2020 take 1 tablet by mouth every four hours as needed for pain Ibuprofen 400 MG tablet Discontinued 400 mg PO EVERY 4 HOURS NEEDED as needed for Pain Or Fever April 04, 2020 12:00am September 18, 2020 3:03pm 24 hr metoprolol succinate 25 mg extended release oral tablet (18 sources) beta-Adrenergic Herve Start: 09-23-2024 End: 04-05-2025 take 2 tablets by mouth once daily Metoprolol Succinate 25 mg tablet extended release 24 hr Discontinued 12.5 mg PO DAILY 45 3 October 24, 2024 4:22pm April 05, 2025 11:01am BLOOD PRESSURE Start: 04-04-2020 End: 02-21-2024 take 1 tablet by mouth every twenty-four hours at bedtime Metoprolol Succinate 25 mg tablet extended release 24 hr Discontinued 25 mg PO AT BEDTIME September 18, 2020 3:02pm February 21, 2024 11:03am heart oxyCODONE hydrochloride 5 mg oral tablet (9 sources) Opioid Agonist Start: 09-24-2024 End: 01-26-2025 take 1 tablet by mouth every six hours as needed for pain Oxycodone 5 mg tablet Discontinued 5 mg PO EVERY 6 HOURS as needed for pain 14 3 0 September 27, 2024 January 26, 2025 3:15pm Obstructive uropathy Obstructive and reflux uropathy, unspecified Start: 01-07-2023 End: 2023 take 1 tablet by mouth every eight hours as needed for pain Oxycodone 5 mg Tablet Discontinued 5 mg PO EVERY 8 HOURS NEEDED as needed for Pain Score 4-10 9 3 0 January 07, 2023 2023 3:39pm Postoperative pain Other acute postprocedural pain simvastatin 5 mg oral tablet (19 sources) HMG-CoA Reductase Inhibitor Start: 09-18-2020 End: 02-03-2024 take 1 tablet by mouth at bedtime Simvastatin 5 mg tablet Discontinued 5 mg PO AT BEDTIME 2023 3:38pm February 03, 2024 10:32am cholesterol Start: 04-04-2020 End: 09-18-2020 take 1 tablet by mouth at bedtime Simvastatin 10 MG tablet Discontinued 10 mg PO AT BEDTIME April 04, 2020 12:00am September 18, 2020 3:03pm ticagrelor 90 mg oral tablet (10 sources) Start: 12-15-2022 End: 02-22-2023 take 1 tablet by mouth twice daily Ticagrelor (Brilinta) 90 mg tablet Discontinued 90 mg PO TWICE A DAY December 29, 2022 2:14pm February 22, 2023 10:04am BLOOD THINNER Problems Active Problems Problem Classification Problem Date Documented Date Episodic/Chronic Conditions associated with dizziness or vertigo (2 sources) Vertigo 10-08-2021 Episodic Coronary atherosclerosis and other heart disease (13 sources) Coronary arteriosclerosis; Translations: [History of myocardial infarction] Onset: 04-23-2025 09-01-2019 Chronic Comment on above: 2004 Disorders of lipid metabolism (14 sources) Mixed hyperlipidemia; Translations: [Hypercholesterolemia] 12-15-2019 Chronic Comment on above: controlled on meds Esophageal disorders (2 sources) Gastroesophageal reflux disease 09-01-2019 Chronic Essential hypertension (9 sources) Essential hypertension; Translations: [Essential (primary) hypertension] 09-29-2019 Chronic Genitourinary symptoms and ill-defined conditions (4 sources) Urinary tract obstruction; Translations: [Obstructive and reflux uropathy, unspecified] 10-02-2024 Episodic Inflammation; infection of eye (except that caused by tuberculosis or sexually transmitteddisease) (7 sources) Acute conjunctivitis; Translations: [Unspecified acute conjunctivitis, bilateral] 2023 Episodic Occlusion or stenosis of precerebral arteries (12 sources) Left carotid artery stenosis; Translations: [Occlusion and stenosis of left carotid artery] 12-09-2022 Chronic Comment on above: S/P L TCAR 01/04/2023 Other aftercare (3 sources) Surgical follow-up; Translations: [Encounter for surgical aftercare following surgery on the circulatory system] 08-17-2023 Episodic Other and ill-defined heart disease (5 sources) Heart disease; Translations: [Heart disease, unspecified] 12-08-2022 Chronic Other circulatory disease (2 sources) Disorder of carotid artery 09-05-2019 Chronic Other diseases of kidney and ureters (4 sources) Hydroureter; Translations: [Hydroureter] 10-02-2024 Episodic Other ear and sense organ disorders (5 sources) Impacted cerumen; Translations: [Impacted cerumen, bilateral] 12-09-2022 Episodic Other ear and sense organ disorders (2 sources) Impacted cerumen, bilateral; Translations: [Impacted cerumen] 12-09-2022 Episodic Other nervous system disorders (5 sources) Postoperative pain ; Translations: [Other acute postprocedural pain] 2023 Episodic Other upper respiratory infections (7 sources) Acute sinusitis; Translations: [Acute sinusitis, unspecified] 2023 Episodic Otitis media and related conditions (7 sources) Acute left otitis media; Translations: [Otitis media, unspecified, left ear] 2023 Episodic Residual codes; unclassified (2 sources) Requires vaccination 09-05-2019 Episodic Residual codes; unclassified (2 sources) Other specified postprocedural states; Translations: [Other postprocedural status] 02-22-2023 Episodic Residual codes; unclassified (4 sources) Pain; Translations: [Pain, unspecified] 10-02-2024 Episodic Thyroid disorders (7 sources) Hypothyroidism; Translations: [Hypothyroidism, unspecified] 12-13-2020 Chronic Past or Other Problems Problem Classification Problem Date Documented Da te Episodic/Chronic Calculus of urinary tract (17 sources) Ureteric stone; Translations: [Calculus of ureter] Onset: 10-25-2024 2023 Episodic Coronary atherosclerosis and other heart disease (7 sources) H/O cardiac surgery; Translations: [Presence of aortocoronary bypass graft] Onset: 09-30-2004 2023 Episodic Comment on above: MCGRATH to Diagonal and LAD, Free left radial artery to LCx 09/26/2004 Other aftercare (1 source) Encounter for surgical aftercare following surgery on the circulatory system; Translations: [Encounter for surgical aftercare following surgery on the circulatory system] Onset: 01-16-2025 Episodic Other diseases of kidney and ureters (1 source) Hydronephrosis with renal and ureteral calculous obstruction; Translations: [Hydronephrosis with renal and ureteral calculous obstruction] Onset: 10-06-2024 Episodic Results Test Name Value Interpretation Reference Range Facility Cardiology Visit Reporton Cardiology Visit Report [facility] [address] [place] [address] OFFICE VISIT Date of Service: 04/05/25 MR#: [id number] Acct: [id number] Name: STALIN MATA Rep #: [id number] : 1940 Provider: Dr. Ck Gould MD Age/Sex: 85/M Location: [facility] Status: Signed HPI HPI History of Present Illness Details: Pleasant 85-year-old man with a history of coronary artery disease which dates back to 1999 when he had a stent placed to the left anterior descending artery in 2003. He subsequently in 2004 underwent a MCGRATH to the diagonal and LAD and a free left radial to the left circumflex artery in 2004. He in the interim developed carotid disease and required a left carotid endarterectomy in January 2023. He has been on guideline directed medical therapy. He denies chest, arm, jaw, or neck discomfort. He however says that occasionally he has some sharpness and some heaviness. He had discontinued his beta-herve on his own. He denies palpita tions. He denies bilateral lower extremity edema. He denies claudication. He denies shortness of breath with activity, shortness of breath at rest, orthopnea, or PND. He denies chronic cough. He denies significant, sudden weight gain. He denies lightheadedness, dizziness, near-syncope, or syncope. He denies blood in urine, blood in stool, or epistaxis. He denies fever with chills. He denies myalgia. He denies fatigue. His exercise level has remained stable. 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 Accompanied by: Self Is patient in pain?: No Allergies No Known Allergies Allergy (Verified 04/05/25 11:00) Medications ???Medication ???Instructions ???Recorded ???Confirmed ???Type aspirin 81 mg tablet,delayed 81 mg PO DAILY BLOOD THINNER 04/0404/05/25 History release ascorbic acid (vitamin C) 500 mg 500 mg PO DAILY@0800 supplement 04/05/25 History tablet cholecalciferol (vitamin D3) 50 50 mcg PO DAILY SUPPLEMENT 4 04/05/25 History mcg (2,000 unit) tablet omeprazole magnesium 20 mg 20 mg PO DAILY GERD #90 caps 05/0304/05/25 Rx capsule,delayed release metoprolol succinate 25 mg 25 mg PO QDAY #90 tabs 04/05/25 Rx tablet,extended release 24 hr (Toprol XL) Ejection fraction %: 65 Have you fallen in the past year?: No PFSH Medical History Easy bruising History of hiatal hernia History of diverticulitis Gastric reflux Shortness of breath on exertion Hypertension History of echocardiogram Ventricular fibrillation Essential hypertension Atherosclerosis of coronary artery of [place] heart without angina pectoris Hyperlipidemia Postoperative pain Wears contact lenses Arthritis Impacted cerumen of both ears Acute sinusitis Acute conjunctivitis of both eyes Left ureteral calculus Blackout Non-smoker History of carotid artery disease Leg cramps History of stress test Cardiology follow-up encounter History of heart attack History of irregular heartbeat History of kidney stones Fatigue Heart disease Right ureteral calculus Surgical History Hx of colonoscopy H/O carotid endarterectomy ( 01/2023) Hx of tooth extraction Hx of cystostomy History of heart artery stent (12/28/03) History of tonsillectomy History of cataract surgery History of cholecystectomy History of heart bypass surgery (09/30/04) Family History Brother Colon cancer Diabetes Myocardial infarction Mother Diabetes Myocardial infarction Father Heart disease Social History Smoking Status: Never smoker alcohol intake: never substance use type: does not use caffeine: No ROS Const Const: Negative for fatigue or weakness Eyes Eyes: Negative for change in vision ENT ENT: Positive for balance problems; Negative for dizziness Cardio Chest Pain: Yes Frequency: monthly Character: sharp and other (heaviness) Location: left chest Duration: brief Palpitations: No Edema: Bilateral Resp Respiratory: Positive for SOB with activity; Negative for SOB at rest or SOB orthopnea SOB lying down GI GI: Negative nausea or heartburn Musc Musc: Positive for balance problems Neuro Neuro: Negative for dizziness, lightheadedness, near syncope, syncope or weakness Endo Endo: Negative for fatigue Cardiology Exam Cons (more content not included)... Normal [facility] MR/BMS.Kristy 01-25-2025 MR/BMS.LEATHA [facility] [place] [facility] [address] [place], [place] [address] OFFICE VISIT Date of Service: 01/26/25 MR#: [id number] Acct: [id number] Name: STALIN MATA Rep #: [id number] : 1940 Provider: DAGO Brownlee Age/Sex: 84/M Location: [facility] Status: Signed Intake Vital Signs 09/27/24 06:32 01/26/25 15:16 Height 5 ft 7 in Weight: 166 lb BP 151/78 H Blood Pressure Location Rt brachial Position Sitting Respiration 16 Pulse 69 Pulse Source Monitor Temp 97.8 F Temp Source Temporal Pulse Oximetry (%) 100 Oxygen Delivery Method room air Intake Visit Reasons: 1 Y FU Is patient in pain?: No Allergies No Known Allergies Allergy (Verified 01/26/25 15:15) Medications ???Medication ???Instructions ???Recorded ???Confirmed ???Type aspirin 81 mg tablet,delayed 81 mg PO DAILY BLOOD THINNER 04/0409/26/24 History release Held on 09/27/24. Instructions: Resume on 10/11/24. ascorbic acid (vitamin C) 500 mg 500 mg PO DAILY@0800 supplement 09/27/24 History tablet cholecalciferol (vitamin D3) 50 50 mcg PO DAILY SUPPLEMENT 4 09/27/24 History mcg (2,000 unit) tablet omeprazole magnesium 20 mg 20 mg PO DAILY GERD #90 caps 05/0309/27/24 Rx capsule,delayed release metoprolol succinate 25 mg 12.5 mg (1/2 x 25 mg) PO DAILY Rx tablet,extended release 24 hr BLOOD PRESSURE #45 tabs Have you fallen in the past year?: No PFSH Medical History Easy bruising History of hiatal hernia History of diverticulitis Gastric reflux Shortness of breath on exertion Hypertension History of echocardiogram Ventricular fibrillation Essential hypertension Atherosclerosis of coronary artery of [place] heart without angina pectoris Hyperlipidemia Postoperative pain Wears contact lenses Arthritis Impacted cerumen of both ears Acute sinusitis Acute conjunctivitis of both eyes Left ureteral calculus Blackout Non-smoker History of carotid artery disease Leg cramps History of stress test Cardiology follow-up encounter History of heart attack History of irregular heartbeat History of kidney stones Fatigue Heart disease Right ureteral calculus Surgical History Hx of colonoscopy H/O carotid endarterectomy ( 01/2023) Hx of tooth extraction Hx of cystostomy History of heart artery stent (12/28/03) History of tonsillectomy History of cataract surgery History of cholecystectomy History of heart bypass surgery (09/30/04) Family History Brother Colon cancer Diabetes Myocardial infarction Mother Diabetes Myocardial infarction Father Heart disease Social History Smoking Status: Never smoker alcohol intake: never substance use type: does not use caffeine: No HPI HPI HPI: STALIN MATA, is a 84 M who presents to the office today for annual follow-up of his carotid artery disease s/p left TCAR on 01/06/23 which was performed for severe asymptomatic L ICA stenosis. He had an updated carotid duplex 01/2025 demonstrated <50% bilateral ICA stenosis and patent L ICA stent. He takes ASA 81mg daily. He is not on statin therapy, reported adverse side effects with simvastatin and did not wish to trial other statins or alternative cholesterol medications. Overall, he has been doing well over this last year. He has noticed some sustained elevation in his blood pressures with systolics frequently 140s-150s ever since his carotid procedure and he wonders if this is related. He denies any signs/symptoms concerning for TIA or CVA. ROS General General: Yes weakness; No weight change, appetite, fatigue, colon cancer or breast cancer HEENT HEENT: No difficulty swallowing, eye injury, eye surgery, swollen glands or hoarseness Endo Endocrine: No thyroid disease, diabetes mellitus, thyroid cancer, Hair loss, heat intolerance or cold intolerance Skin Skin: No rash or changing moles Musc Musculoskeletal: No back problems, arthritis, rheumatoid arthritis, gout or joint pain Cardio Cardiovascular: Yes heart disease, heart attack and heart stent; No murmur, pacemaker, atrial fibrillation, high blood pressure, palpitations, shortness of breath with exertion or chest pain Psych Psychiatric: No depression, anxiety or hearing voices Resp Respiratory: No shortness of breath, No sleep apnea, No cough, No COPD, No asthma, No emphysema and No wheezing Gastro Gastrointestinal: No abdominal pain, No nausea or vomiting, No diarrhea, No constipation, No blood in stool, No acid reflux, No hemorrhoids, No ulcers, No gallbladder p (more content not included)... Normal [facility] Carotid Duplex Ultrasoundon 01-11-2025 Carotid Duplex Ultrasound [facility] [address] [place] [address] Carotid Duplex Ultrasound 01/11/25 1111 MR#: [id number] Acct: [id number] Name: STALIN MATA E Rep #: [id number] : 1940 84 From: Pedro Ruiz MD Attending Dr: DAGO Brownlee Status: REG CLI Ordering Dr: Tejal Clark Date: 01/11/25 Location: [facility] Sex: M C Admitted: Reason For Study Reason For Study: S/P L Carotid Stent Rt. Velocities/BP Lt. Velocities/BP Prox CCA 102.3/7.7 cm/sec. Prox CCA 105.2/23.0 cm/sec. Mid CCA 80.2/12.6 cm/sec. Mid CCA 60.0/14.9 cm/sec. Dist CCA 72.8/18.8 cm/sec. Dist CCA, Pre Stent - 53.4/13.8 cm/s. Prox ICA 64.6/15.5 cm/sec. Dist CCA, Prox Stent - 43.5/13.8 cm/s. Mid ICA 58.7/19.3 cm/sec. Bulb, Mid Stent - 48.6/13.0 cm/s. Dist ICA 56.3/23.2 cm/sec. Prox ICA, Dist Stent - 46.9/7.2 cm/s. Rt. ICA/CCA = 0.8. Mid ICA, Dist to Stent - 40.0/13.9 cm/s. Prox ECA 72.0/2.0 cm/sec. Dist ICA 50.6/15.4 cm/sec. Rt. Vert. 48.7/14.7 cm/sec. Lt. ICA/CCA = 0.8. Prox ECA 382.2/0.0 cm/sec. Lt. Vert. 62.1/17.9 cm/sec. Right Extracranial There is homogeneous, smooth atherosclerotic plaque noted in the right common carotid artery. There is homogeneous, smooth atherosclerotic plaque noted in the right internal carotid artery. There is homogeneous, smooth atherosclerotic plaque noted in the right external carotid artery. Antegrade flow is noted in the right vertebral artery. Left Extracranial There is homogeneous, smooth atherosclerotic plaque noted in the left common carotid artery. Stent noted in dist CCA to prox ICA. There is heterogeneous, irregular atherosclerotic plaque noted in the left internal carotid artery. There is homogeneous, smooth atherosclerotic plaque noted in the left external carotid artery. Procedure Carotid Duplex 42401. This is a Carotid Duplex examination using B-mode, color flow and specral Doppler. Exam performed in department. VL/Carotid Duplex Ultrasound Interpretation Summary Mild (<50%) stenosis right extracranial internal carotid. Mild (<50%) stenosis left extracranial internal carotid. Patent and antegrade vertebrals bilaterally. Ordering Physician: Tejal Clark Referring Physician: Tejal Clark Performed By: Susanna Everett, T 01/11/25 1352 Date Pedro Ruiz MD CC: DAGO Brownlee; Dr. Buddy Melara MD Date Dictated: 01/11/25 1111 Date Transcribed: 01/11/25 1352 Assisted Living Home Director: Signed Normal [facility] Duplex ultrasound of carotid artery reportOrdered By: Pedro Ruiz on 01-11-2025 Study report [facility] [address] [place] [address] Carotid Duplex Ultrasound 01/11/25 1111 MR#: [id number] Acct: [id number] Name: STALIN MATA Rep #:[id number] : 1940 84 From: Pedro Sol Attending Dr: DAGO Brownlee Stat us: REG CLI Ordering Dr: Tejal Clark Date: Location: CVS Sex: M C Admitted: Reason For Study Reason For Study: S/P L Carotid Stent Rt. Velocities/BP Lt. Velocities/BP Prox CCA 102.3/7.7 cm/sec. Prox CCA 105.2/23.0 cm/sec. Mid CCA 80.2/12.6 cm/sec. Mid CCA 60.0/14.9 cm/sec. Dist CCA 72.8/18.8 cm/sec. Dist CCA, Pre Stent - 53.4/13.8 cm/s. Prox ICA 64.6/15.5 cm/sec. Dist CCA, Prox Stent - 43.5/13.8 cm/s. Mid ICA 58.7/19.3 cm/sec. Bulb, Mid Stent - 48.6/13.0 cm/s. Dist ICA 56.3/23.2 cm/sec. Prox ICA, Dist Stent - 46.9/7.2 cm/s. Rt. ICA/CCA = 0.8. Mid ICA, Dist to Stent - 40.0/13.9 cm/s. Prox ECA 72.0/2.0 cm/sec. Dist ICA 50.6/15.4 cm/sec. Rt. Vert. 48.7/14.7 cm/sec. Lt. ICA/CCA = 0.8. Prox ECA 382.2/0.0 cm/sec. Lt. Vert. 62.1/17.9 cm/sec. Right Extracranial There is homogeneous, smooth atherosclerotic plaque noted in the right common carotid artery. There is homogeneous, smooth atherosclerotic plaque noted in the right internal carotid artery. There is homogeneous, smooth atherosclerotic plaque noted in the right external carotid artery. Antegrade flow is noted in the right vertebral artery. Left Extracranial There is homogeneous, smooth atherosclerotic plaque noted in the left common carotid artery. Stent noted in dist CCA to prox ICA. There is heterogeneous, irregular atherosclerotic plaque noted in the left internal carotid artery. There is homogeneous, smooth atherosclerotic plaque noted in the left external carotid artery. Procedure Carotid Duplex 52854. This is a Carotid Duplex examination using B-mode, color flow and specral Doppler. Exam performed in department. VL/Carotid Duplex Ultrasound Interpretation Summary Mild (<50%) stenosis right extracranial internal carotid. Mild (<50%) stenosis left extracranial internal carotid. Patent and antegrade vertebrals bilaterally. Ordering Physician: Tejal Clark Referring Physician: Tejal Clark Performed By: Susanna Everett, RVT 01/11/25 1352 Date _ Pedro Ruiz MD CC: DAGO Brownlee; Dr. Buddy Melara MD ~ Date Dictated: 01/11/25 1111 Date Transcribed: 01/11/25 1352 Assisted Living Home Director: Signed [facility] Work Phone: Calculi, Urinary w / Photoon 10-12-2024 . Comment Normal . [facility] Comment on above: Result Comment: Perc entage (Represents the % composition) Performed By: #### L 3650.0100 #### [facility] Laboratory [address] [place], [address] 2,8 Dihydroxyad TNP Normal . [facility] Comment on above: Performed By: #### L 3650.0100 #### [facility] [address] [place], [address] AMM ACID URATE TNP Normal . [facility] Comment on above: Performed By: #### L 3650.0100 #### [facility] [address] [place], [address] Bilirubin Ql (U) TNP Normal . [facility] Comment on above: Performed By: #### L 3650.0100 #### [facility] [address] [place], [address] [place] BILIRUBINATE TNP Normal . [facility] Comment on above: Performed By: #### L 3650.0100 #### [facility] [address] [place], [address] CA CARBONATE TNP Normal . [facility] Comment on above: Performed By: #### L 3649.0100 #### [facility] [address] [place], [address] CA HYDROG PHOS TNP Normal . [facility] Comment on above: Performed By: #### L 3649.0 #### [facility] [address] [place], [address] CA OXAL DIHYDR TNP Normal . [facility] Comment on above: Performed By: #### L 3649.0 #### [facility] [address] [place], [address] [place] OXAL MONOHYD 100 Normal . [facility] Comment on above: Performed By: #### L 3649.0 #### [facility] [address] [place], [address] CA Palmitate TNP Normal . [facility] Comment on above: Performed By: #### L 3649.0 #### [facility] [address] [place], [address] [place] PHOS (hydro) TNP Normal . [facility] Comment on above: Performed By: #### L 3649.0 #### [facility] [address] [place], [address] CA PHOSPHATE TNP Normal . [facility] Comment on above: Performed By: #### L 3649.0 #### [facility] [address] [place], [address] CA Stearate TNP Normal . [facility] Comment on above: Performed By: #### L 3649.0 #### [facility] [address] [place], [address] CELL MATERIAL TNP Normal . [facility] Comment on above: Performed By: #### L 3649.0 #### [facility] [address] [place], [address] CHOLESTEROL TNP Normal . [facility] Comment on above: Performed By: #### L 3650.0100 #### [facility] [address] [place], [address] Color (U) Brown Normal . [facility] Comment on above: Performed By: #### L 0.0100 #### [facility] [address] [place], [address] COMMENT TNP Normal . [facility] Comment on above: Performed By: #### L 0.0100 #### [facility] [address] [place], [address] COMMENT Comment Normal . [facility] Comment on above: Result Comment: Phys ician questions regarding Calculi Analysis contact [facility] at: [phone]. Performed By: #### L 0.0100 #### [facility] [address] [place], [address] Result Comment: Calc tawanda report will follow via computer, mail or skull chopper delivery. CYSTINE TNP Normal . [facility] Comment on above: Performed By: #### L 3650.0100 #### [facility] [address] [place], [address] Disclaimer Comment Normal . [facility] Comment on above: Result Comment: This test was developed and its performance characteristics determined by [facility]. It has not been cleared or approved by the Food and Drug Administration. Performed at: [address] [id number] Director Of Education: Geneva Paz PhD, Phone: [phone] Performed By: #### L 3650.0100 #### [facility] [address] [place], [address] DRIED BLOOD TNP Normal . [facility] Comment on above: Performed By: #### L 365.0100 #### [facility] [address] [place], [address] Drug/Metabolite TNP Normal . [facility] Comment on above: Performed By: #### L 3649.0 #### [facility] [address] [place], [address] MAG ANTONY PHOS TNP Normal . [facility] Comment on above: Performed By: #### L 3649.0 #### [facility] [address] [place], [address] NA ACID URATE TNP Normal . [facility] Comment on above: Performed By: #### L 3649.0 #### [facility] [address] [place], [address] NEWBERYITE TNP Normal . [facility] Comment on above: Performed By: #### L 3649.0 #### [facility] [address] [place], [address] Other Component TNP Normal . [facility] Comment on above: Performed By: #### L 3649.0 #### [facility] [address] [place], [address] PHOTO Comment Normal . [facility] Comment on above: Result Comment: Phot ograph will follow under a separate cover Performed By: #### L 3649.0 #### [facility] [address] [place], [address] SIZE 3x2 Normal . [facility] Comment on above: Result Comment: Braulio comer piece received. Performed By: #### L 3649.0 #### [facility] [address] [place], [address] SOURCE Comment Normal . [facility] Comment on above: Result Comment: Not provided Performed By: #### L 3649.0 #### [facility] [address] [place], [address] TRIAMTERENE TNP Normal . [facility] Comment on above: Performed By: #### L 3650.0100 #### [facility] [address] [place], [address] URIC ACID TNP Normal . [facility] Comment on above: Performed By: #### L 0.0100 #### [facility] [address] [place], [address] URIC ACID DIHYD TNP Normal . [facility] Comment on above: Performed By: #### L 3650.0100 #### [facility] [address] [place], [address] WEIGHT 10 mg Normal . [facility] Comment on above: Performed By: #### L 0.0100 #### [facility] [address] [place], [address] XANTHINE TNP Normal . [facility] Comment on above: Performed By: #### L 3650.0100 #### [facility] [address] [place], [address] Basic Metabolic Profile (BMP )on 10-06-2024 BUN/CRE 9.7 RATIO Low 10-20 [facility] Comment on above: Performed By: #### L 100.0500, L500.2500 ####[facility] [address] [place], [address] CA,Total 8.8 mg/dL Normal 8.5-10.1 [facility] Comment on above: Performed By: #### L 100.0500, L500.2500 ####[facility] [address] [place], [address] Chloride [Moles/Vol] 106 mmol/L Normal 98-107 [facility] Comment on above: Performed By: #### L 100.0500, L500.2500 ####[facility] [address] [place], [address] CO2 [Moles/Vol] 27.0 mmol/L Normal 21.0-32.0 [facility] Comment on above: Performed By: #### L 100.0500, L500.2500 ####[facility] [address] [place], [address] Creatinine [Mass/Vol] 1.34 mg/dL High 0.70-1.30 [facility] Comment on above: Result Comment: The validity of the calculated GFR GFRAA in patients over 70 years has not been determined. Clinical correlation is essential. Performed By: #### L 100.0500, L500.2500 ####[facility] [address] [place], [address] EST GFR - AA 65 mL/min Normal >60 [facility] Comment on above: Result Comment: Afri can Russian GFR Calc Performed By: #### L 100.0500, L500.2500 ####[facility] [address] [place], [address] GAP 6 Normal 5-15 [facility] Comment on above: Performed By: #### L 100.0500, L500.2500 ####[facility] [address] [place], [address] GFR/1.73 sq M.predicted among non-blacks MDRD (S/P/Bld) [Vol rate/Area] 54 mL/min/{1.73_m2} Low >60 [facility] Comment on above: Result Comment: Non- GFR Calc Performed By: #### L 100.0500, L500.2500 ####[facility] [address] [place], [address] Glucose [Mass/Vol] 101 mg/dL Normal 74-106 [facility] Comment on above: Result Comment: Fast ing Glucose result from 100 to 125 mg/dL suggests IMPAIRED HOMEOSTASIS per A.D.A. criteria. Performed By: #### L 100.0500, L500.2500 ####[facility] [address] [place], [address] Potassium [Moles/Vol] 3.8 mmol/L Normal 3.5-5.1 [facility] Comment on above: Performed By: #### L 100.0500, L500.2500 ####[facility] [address] [place], [address] Sodium [Moles/Vol] 138 mmol/L Normal 136-145 [facility] Comment on above: Performed By: #### L 100.0500, L500.2500 ####[facility] [address] [place], [address] Urea nitrogen [Mass/Vol] 13 mg/dL Normal 7-18 [facility] Comment on above: Performed By: #### L 100.0500, L500.2500 ####[facility] [address] [place], [address] Blood urea nitrogen (BUN)/cr eatinine ratioOrdered By: Jem Henriquez on 10-06-2024 Urea nitrogen/Creatinine [Mass ratio] 9.7 mg/mg Low 10-20 [facility] CBC-Complete Blood Cnt No Di ffon 10-06-2024 Erythrocyte distribution width (RBC) [Ratio] 12.5 % Normal 11.6-14.6 [facility] Comment on above: Performed By: #### L 100.0500, L500.2500 ####[facility] [address] [place], [address] Hematocrit (Bld) [Volume fraction] 42.6 % Normal 40-54 [facility] Comment on above: Performed By: #### L 100.0500, L500.2500 ####[facility] [address] [place], [address] Hemoglobin (Bld) [Mass/Vol] 14.0 g/dL Normal 13.0-16.5 [facility] Comment on above: Performed By: #### L 100.0500, L500.2500 ####[facility] [address] [place], [address] MCH (RBC) [Entitic mass] 30.3 pg Normal 27.0-32.0 [facility] Comment on above: Performed By: #### L 100.0500, L500.2500 ####[facility] [address] [place], [address] MCHC (RBC) [Mass/Vol] 32.9 g/dL Normal 32-36 [facility] Comment on above: Performed By: #### L 100.0500, L500.2500 ####[facility] [address] [place], [address] MCV (RBC) [Entitic vol] 92.2 fL Normal 80-[address] [facility] Comment on above: Performed By: #### L 100.0500, L500.2500 ####[facility] [address] [place], [address] Platelet mean volume (Bld) [Entitic vol] 10.0 fL Normal 6.2-12.0 [facility] Comment on above: Performed By: #### L 100.0500, L500.2500 ####[facility] [address] [place], [address] Platelets (Bld) [#/Vol] 191 10*3/uL Normal 150-450 [facility] Comment on above: Performed By: #### L 100.0500, L500.2500 ####[facility] [address] [place], [address] RBC (Bld) [#/Vol] 4.62 10*6/uL Normal 4.6-6.2 [facility] Comment on above: Performed By: #### L 100.0500, L500.2500 ####[facility] [address] [place], [address] RDW SD 42.6 fl Normal 35.1-43.9 [facility] Comment on above: Performed By: #### L 100.0500, L500.2500 ####[facility] [address] [place], [address] WBC (Bld) [#/Vol] 5.9 10*3/uL Normal 4.4-11.0 [facility] Comment on above: Performed By: #### L 100.0500, L500.2500 ####[facility] [address] [place], [address] Carbon dioxide measurementOr dered By: Jem Henriquez on 10-06-2024 CO2 [Moles/Vol] 27.0 mmol/L 21.0-32.0 [facility] Chloride measurementOrdered By: Jem Henriquez on 10-06-2024 Chloride [Moles/Vol] 106 mmol/L 98-107 [facility] Erythrocyte distribution wid th ratioOrdered By: Jem Henriquez on 10-06-2024 Erythrocyte distribution width (RBC) [Ratio] 12.5 % 11.6-14.6 [facility] Erythrocyte distribution wid th standard deviationOrdered By: Jem Henriquez on 10-06-2024 Erythrocyte distribution width (RBC) [Ratio] 42.6 fl 35.1-43.9 [facility] Glomerular filtration rate ( GFR) estimationOrdered By: Jem Henriquez on 10-06-2024 GFR/1.73 sq M.predicted among non-blacks MDRD (S/P/Bld) [Vol rate/Area] 54 mL/min/{1.73_m2} Low >60 [facility] Comment on above: Non- GFR Calc Glucose measurementOrdered B y: Jem Henriquez on 10-06-2024 Glucose [Mass/Vol] 101 mg/dL 74-106 [facility] Comment on above: Fasting Glucose resu lt from 100 to 125 mg/dL suggests IMPAIRED HOMEOSTASIS per A.D.A. criteria. Hematocrit Auto (Bld) [Volum e fraction]Ordered By: Jem Henriquez on 10-06-2024 Hematocrit (Bld) [Volume fraction] 42.6 % 40-54 [facility] Hemoglobin measurementOrdere d By: Jem Henriquez on 10-06-2024 Hemoglobin (Bld) [Mass/Vol] 14.0 g/dL 13.0-16.5 [facility] MCV (mean corpuscular volume ) determinationOrdered By: Jem Henriquez on 10-06-2024 MCV (RBC) [Entitic vol] 92.2 fL 80-[address] [facility] Mean corpuscular hemoglobin (MCH) determinationOrdered By: Jem Henriquez on 10-06-2024 MCH (RBC) [Entitic mass] 30.3 pg 27.0-32.0 [facility] Mean corpuscular hemoglobin concentration (MCHC) determinationOrdered By: Jem Henriquez on 10-06-2024 MCHC (RBC) [Mass/Vol] 32.9 g/dL 32-36 [facility] Mean platelet volume determi nationOrdered By: Jem Henriquez on 10-06-2024 Platelet mean volume (Bld) [Entitic vol] 10.0 fL 6.2-12.0 [facility] Platelet countOrdered By: Ellen Henriquez on 10-06-2024 Platelets (Bld) [#/Vol] 191 10*3/uL 150-450 [facility] Potassium measurementOrdered By: Jem Henriquez on 10-06-2024 Potassium [Moles/Vol] 3.8 mmol/L 3.5-5.1 [facility] RBC Auto (Bld) [#/Vol]Ordere d By: Jem Henriquez on 10-06-2024 RBC (Bld) [#/Vol] 4.62 10*6/uL 4.6-6.2 [facility] Serum anion gap measurementO rdered By: Jem Henriquez on 10-06-2024 Anion gap [Moles/Vol] 6 mmol/L 5-15 [facility] Serum or plasma calcium huber urement (mass/volume)Ordered By: Jem Henriquez on 10-06-2024 Calcium [Mass/Vol] 8.8 mg/dL 8.5-10.1 [facility] Serum or plasma creatinine m easurement (mass/volume)Ordered By: Jem Henriquez on 10-06-2024 Creatinine [Mass/Vol] 1.34 mg/dL High 0.70-1.30 [facility] Comment on above: The validity of the calculated GFR & GFRAA in patients over 70 years has not been determined. Clinical correlation is essential. Serum or plasma urea nitroge n measurement (mass/volume)Ordered By: Jem Henriquez on 10-06-2024 Urea nitrogen [Mass/Vol] 13 mg/dL 7-18 [facility] Sodium levelOrdered By: Jem Henriquez on 10-06-2024 Sodium [Moles/Vol] 138 mmol/L 136-145 [facility] White blood cell (WBC) count Ordered By: Jem Henriquez on 10-06-2024 WBC (Bld) [#/Vol] 5.9 10*3/uL 4.4-11.0 [facility] Abdomen Single Viewon 2024 Abdomen Single View [facility] Imaging Services [address] [place], [place] [address] Abdomen Single View MR#: [id number] Acct: [id number] Name: STALIN MATA Rep #: [id number] : 1940 M 84 From: Nabil Sol PCP: Dr. Buddy Melara MD Status: REG CLI Study: Abdomen Single View Date of Exam: 10/05/24 Exam# [id number] Ordering Dr: Jem Henriquez MD PROCEDURE: ABDOMEN SINGLE VIEW REASON FOR EXAM: Renal calculus. TECHNIQUE: Single view abdomen. COMPARISON: Abdomen study of 12/22/2021 RAD/Abdomen Single View IMPRESSION: The region of the hemidiaphragms is excluded from view. Pelvic surgical clip again noted. Right upper quadrant abdominal surgical clips are again seen. A right ureteral stent is satisfactorily in place, with adjacent calculi seen at the level of the proximal right ureter. At least 3 small right renal calculi are additionally seen. No left renal calculus is identified, though evaluation is limited by overlying bowel. The bowel-gas pattern is otherwise unremarkable. Reading Location: [id number] CC: Dr. Jem Henriquez MD; Dr. Buddy Melara MD Assisted Living Home Director: Signed Normal [facility] Ammonium urate crystals dete ction in stone by infrared spectroscopyOrdered By: Jem Henriquez on 10-05-2024 Ammonium urate crystals Infrared spectroscopy Ql (Stone) [facility] Comment on above: Test not performed Calcium hydrogen phosphate c rystals detection in stone by infrared spectroscopyOrdered By: Jem Henriquez on 10-05-2024 Calcium hydrogen phosphate crystals Infrared spectroscopy Ql (Stone) [facility] Comment on above: Test not performed Calcium oxalate dihydrate cr ystals detection in stone by infrared spectroscopyOrdered By: Jem Henriquez on 10-05-2024 Calcium oxalate dihydrate crystals Infrared spectroscopy Ql (Stone) [facility] Comment on above: Test not performed Color of specimen determinat ionOrdered By: Jem Henriquez on 10-05-2024 Color (Unsp spec) Brown . [facility] Cystine measurementOrdered B y: Jem Henriquez on 10-05-2024 Cystine (Unsp spec) [Moles/Vol] [facility] Comment on above: Test not performed Determination of volume of c alculusOrdered By: Jem Henriquez on 10-05-2024 Size (Stone) [Entitic vol] 3x2 mm . [facility] Comment on above: Single piece receive d. Estimation of cellular mater ial in calculus (mass/mass)Ordered By: Jem Henriquez on 10-05-2024 Cellular material Est (Stone) [Mass/Mass] [facility] Comment on above: Test not performed Laboratory - Miscellaneous t estsOrdered By: Jem Henriquez on 10-05-2024 Service comment (Unsp spec) [Interp] [facility] Comment on above: Test not performed Service comment (Unsp spec) [Interp] Comment . [facility] Comment on above: Physician questions regarding Calculi Analysis [facility] at: [phone]. Calculi report will follow via computer, mail or courierdelivery. Measurement of proportion of calculus composed of dried blood (mass/mass)Ordered By: Jem Henriquez on 10-05-2024 Blood.dried (Stone) [Mass fraction] [facility] Comment on above: Test not performed Measurement of weight of sto neOrdered By: Jem Henriquez on 10-05-2024 Weight (Stone) 10 mg . [facility] Newberyite crystals detectio n in stone by infrared spectroscopyOrdered By: Jem Henriquez on 10-05-2024 Newberyite crystals Infrared spectroscopy Ql (Stone) [facility] Comment on above: Test not performed No Panel InformationOrdered By: Jem Henriquez on 10-05-2024 Stone 2,8 Dihydroxyadenine [facility] Comment on above: Test not performed Stone Analysis (T) Comment . [facility] Comment on above: Percentage (Represen ts the % composition) Stone Bilirubin [facility] Comment on above: Test not performed Stone Calcium Bilirubinate [facility] Comment on above: Test not performed Stone Calcium Carbonate [facility] Comment on above: Test not performed Stone Calcium Hydroxyl-Phosphate [facility] Comment on above: Test not performed Stone Calcium Oxalate Monohydrate 100 % . [facility] Stone Calcium Palmitate [facility] Comment on above: Test not performed Stone Calcium Phosphate Carbonate [facility] Comment on above: Test not performed Stone Calcium Stearate [facility] Comment on above: Test not performed Stone Drug or Metabolite [facility] Comment on above: Test not performed Stone Other Component(s) [facility] Comment on above: Test not performed Stone Xanthine [facility] Comment on above: Test not performed Origin of StoneOrdered By: Enzo Henriquez on 10-05-2024 Origin Nom (Stone) Comment . [facility] Comment on above: Not provided Sodium urate crystals detect ion in stone by infrared spectroscopyOrdered By: Jem Henriquez on 10-05-2024 Sodium urate crystals Infrared spectroscopy Ql (Stone) [facility] Comment on above: Test not performed Surgery Specimen Level Ion 0 10-05-2024 Surgery Specimen Level I Patient Age/Sex Location Account Attending Physician STALIN MATA /M [facility] [id number] Dr. Jem Henriquez MD Specimen: [id number] Received: 10/05/24 Status: RADHA Zuniga Num: [id number] Spec Type: Calculi Subm Dr: Dr. Jem Henriquez MD HEADER OPERATION: Not noted PRE-OP DIAGNOSIS: Calculus of kidney TISSUE SUBMITTED: Calculi GROSS DIAGNOSIS A fragment of stone, clinically urinary stone (gross only). 10/06/2024 COMMENT The calculus is submitted in its entirety for chemical stone analysis. The results from this study will be reported separately. GROSS DESCRIPTION Received without fixative labeled with the patient's name and designated stone analysis. The specimen consists of a fragment of black stone measuring 0.2 x 0.2 x 0.1 cm. The entire specimen is submitted for stone analysis. 10/06/2024 CPT: 80922 Patient Age/Sex Location Account Attending Physician STALIN MATA /M [facility] [id number] Dr. Jem Henriquez MD Signed (signature on file) Dr. Az Bear MD 10/09/24 1321 Normal [facility] Comment on above: Performed By: #### P CASPER ####[facility] [id number] [place], [place], [id number] Triamterene crystals detecti on in stone by infrared spectroscopyOrdered By: Jem Henriquez on 10-05-2024 Triamterene crystals Infrared spectroscopy Ql (Stone) [facility] Comment on above: Test not performed Triple phosphate crystals de tection in stone by infrared spectroscopyOrdered By: Jem Henriquez on 10-05-2024 Triple phosphate crystals Infrared spectroscopy Ql (Stone) [facility] Comment on above: Test not performed Uric acid crystals detection in stone by infrared spectroscopyOrdered By: Jem Henriquez on 10-05-2024 Urate crystals Infrared spectroscopy Ql (Stone) [facility] Comment on above: Test not performed Uric acid dihydrate crystals detection in stone by infrared spectroscopyOrdered By: Jem Henriquez on 10-05-2024 Urate dihydrate crystals Infrared spectroscopy Ql (Stone) [facility] Comment on above: Test not performed Abdomen Single Viewon 2024 Abdomen Single View [facility] Imaging Services [address] [place], [place] [id number] Abdomen Single View MR#: [id number] Acct: [id number] Name: SATLIN MATA Rep #: [id number] : 1940 M 84 From: Delgado reed MD PCP: Dr. Buddy Melara MD Status: DEP [facility] Study: Abdomen Single View Date of Exam: 09/27/24 Exam# [id number] Ordering Dr: Jem Henriquez MD [id number] STUDY: X-RAY - ABDOMEN/PELVIS REASON FOR EXAM: Male, 84 years old. RIGHT KIDNEY STONE TECHNIQUE: Single AP view of the abdomen / pelvis. COMPARISON: Comparison is made with prior study December 22, 2021. FINDINGS: Normal visualized lung bases. There is a moderate amount of colonic fecal material. Nonobstructive right intrarenal calculi. The largest calculus is in the lower pole and measures 5.3 mm. This is essentially unchanged. A right-sided double-J ureteral catheter is present. Normal soft tissue structures. There are diffuse degenerative changes of the visualized lumbar spine. RAD/Abdomen Single View IMPRESSION: Right intrarenal calculi. Electronically Signed: Delgado Rodríguez MD at 10:58 EST , CC: Dr. Jem Henriquez MD; Dr. Buddy Melara MD Assisted Living Home Director: Signed Normal [facility] Discharge Instructionon 09-07 Discharge Instruction [facility] Medical Records Department [address] [place] [address] Instructions for Home/Discharge Instructions 09/27/24 0739 MR#: [id number] Acct: [id number] Name: STALIN MATA Rep #: [id number] : 1940 84 From: Jem Henriquez MD PCP: Dr. Buddy Melara MD Status:REG [facility] Discharge Instructions Diet Discharge Diet: No restrictions DC O2, CPAP, BIPAP needs Home O2 Discharge instructions: No Dressing / Incision Discharge Activity: Return to Normal Activity and May Not Drive (while taking narcotic pain medications.) Dressing / Incision Call your doctor if you observe: Fever of 101 or Higher Follow Up Care Please Follow Up With: Jem Henriquez MD When: Call [phone] for an appointment Test Results: Test results from this visit will be discussed in further detail at your follow-up appointment, if applicable. Discharge Plan Admission Primary Reason for Your Visit: Right ESWL Attending Provider: Jem Henriquez Primary Care Provider: Buddy Melara Instructions Print Language: Luxembourgish Discharge Orders/Prescriptions Prescriptions: New ciprofloxacin HCl [Cipro] 500 mg tablet 500 mg PO BID Qty: 10 0RF oxycodone 5 mg tablet 5 mg PO Q6H PRN (Reason: pain) 3 Days Qty: 14 0RF Continued cholecalciferol (vitamin D3) 50 mcg (2,000 unit) tablet 50 mcg PO DAILY ascorbic acid (vitamin C) 500 mg tablet 500 mg PO DAILY@0800 metoprolol succinate 25 mg tablet extended release 24 hr 12.5 mg PO DAILY ciprofloxacin HCl [Cipro] 500 mg tablet 500 mg PO BID Qty: 10 0RF omeprazole magnesium 20 mg capsule,delayed release(DR/EC) 20 mg PO DAILY Qty: 90 3RF Held aspirin 81 MG tablet,delayed release (DR/EC) 81 mg PO DAILY Hold Instructions: Resume on 10/11/24. Patient Comments: pt reports that pt stopped 01/31/21 for surgery on 02/05/[address] henriquez instructions No Action oxycodone 5 mg tablet 5 mg PO Q6H PRN (Reason: pain) 3 Days Qty: 14 0RF Referrals / Follow Up: Jem Henriquez MD [Med Staff - Active Staff] - Buddy Melara MD [Primary Care Provider] - Disposition Disposition (needs filled in before D/C Order can be placed): Home, Self Care 09/27/24 0739 Jem Henriquez MD CC: Dr. Buddy Melara MD Signed [facility] MR/POSTOP.KELLY 09-27-2024 MR/POSTOP.[facility] Medical Records Department [address] [place] [address] Anesthesia Postop Eval I 09/27/24 0822 MR#: [id number] Acct: [id number] Name: STALIN MATA Rep #: [id number] : 1940 84 From: Kyara Hurtado PCP: Dr. Buddy Melara MD Status:REG SDC Y Race: C Location: [place] [address] Anesthesia: Postop Eval I Current Vital Signs Temperature: 97.6 F Pulse Rate: 65 Blood Pressure: 148/76 Respiratory Rate: 16 Pulse Ox: 99 Oxygen Delivery Method: Room Air Assessment Airway patent: Yes Spontaneous unlabored respirations: Yes Mental status: Awake and Calm nausea: No Vomiting: No Anesthesia Complication: No Fluid Hydration Crystalloid volume administer (ml): 600 Total IV fluid infused: 600 Progress Note Anesthesia document: Postop Eval 1 completed: Yes 09/27/24822 Date Kyara Gonzalesigner Signature: Date CC: Signed Normal [facility] MR/[id number] 09-27-2024 [facility] Medical Records Department [address] [place] [address] Anesthesia Postop Eval II 09/27/24840 MR#: [id number] Acct: [id number] Name: STALIN MATA Rep #: [id number] : 1940 84 From: Brooks Garcia MD PCP: Dr. Buddy Melara MD Status:REG [facility] Y Race: C Location: [place] [address] Anesthesia Postop Eval I Sum Postop Eval Completion status Anesthesia document: Postop Eval 1 completed: Yes Anesthesia Postop Eval I Summary Anesthesia Postop Eval I Summary: Anesthesia Postop Eval I: Assessment Summary Airway patent Yes 09/27/24 08:23 ENGAGEMENT QUALITY CONSULTANT.GDOTT Spontaneous unlabored Yes 09/27/24 08:23 ENGAGEMENT QUALITY CONSULTANT.GDOTT respirations Mental status Awake,Calm 09/27/24 08:23 ENGAGEMENT QUALITY CONSULTANT.GDOTT nausea No 09/27/24 08:23 ENGAGEMENT QUALITY CONSULTANT.GDOTT Vomiting No 09/27/24 08:23 ENGAGEMENT QUALITY CONSULTANT.GDOTT Anesthesia Postop Eval I: Fluid Summary Crystalloid volume administer 600 09/27/24 08:23 ENGAGEMENT QUALITY CONSULTANT.GDOTT (ml) Colloids volume administered ( ml) Blood Product volume administered (ml) Total IV fluid infused 600 09/27/24 08:23 ENGAGEMENT QUALITY CONSULTANT.GDOTT Anesthesia Postop Eval I: Summary Notes Anesthesia Complication No 09/27/24 08:23 ENGAGEMENT QUALITY CONSULTANT.GDOTT Anesthesia Complication Comment: Post-operative progress note Anesthesia: Postop Eval II Evaluation Mental status: Awake Pain Level: 0 nausea: Yes Vomiting: No Progress Note Post-operative progress note: Patient given Zofran in PACU Complications Anesthesia Complication: No 09/27/24 0843 Date Brooks Garcia MD Cosigner Signature: Date CC: Signed Normal [facility] Operative Reporton 5 Operative Report [facility] Medical Records Department [address] [place] [address] Operative Report 09/27/24 0743 MR#: [id number] Acct: [id number] Name: STALIN MATA Rep #: [id number] : 1940 84 From: Jem Henriquez MD PCP: Dr. Buddy Melara MD Status:[facility] Location: [place] [address] Operative Report (Standard) Operative Information Date of Procedure: 09/27/24 Pre-Operative Diagnosis: right kidney stones Post-Operative Diagnosis: same Surgery/Procedure Performed: Right extracorporeal shockwave lithotripsy (ESWL) safety officer: No Type of Anesthesia: General RN Documented Start/Stop Times: Operation Date: 09/27/24 07:30 Case Time Into Pre-Op 09/27/24 06:21 Out of Pre-Op 09/27/24 07:24 Procedure Start Time: 07:30 Procedure Stop Time: 08:14 Select all DRAINS/GRAFTS/IMPLAN TS that apply: Drains Drain details: stent in place Estimated Blood Loss: 0 Specimen collected: No Description of surgery: Patient presents to the hospital for treatment of a kidney stone with shockwave lithotripsy. In the preoperative area and x-ray was done to confirm the location of the stone. The x-ray was reviewed and the stone location was reviewed. In the preoperative setting I spoke with the patient regarding the treatment of the stone how the treatment would be conducted and the expectations after surgery. The patient understands there is a risk of bleeding and infection. Also discussed the very rare risk of hematoma or damage to the kidney. We also discussed the risk that the shockwave machine will fail to break the stone adequately and that the patient may need other surgical procedures. I also discussed the possibility that the patient may need a stent after the procedure. After reviewing the procedure with the patient, the patient is signed the consent form all the patient's questions were addressed and was taken back to the operating room for treatment of a kidney stone. Patient was taken back to the operating room, the patient was identified by the nursing staff, I identified the side of the treatment and the patient side of treatment had been marked by my initials. The patient underwent general anesthetic and was placed supine on the lithotripter table. I then used fluoroscopy to identify the stone on the Right side. I then positioned the patient under the lithotripter and I used triangulation technique to identify the location of the stone and then I made sure that the stone was engaged in the F2 focal point of F2 Donier lithoprior machine. Once the patient was positioned appropriately and the stone was identified and placed in the F2 focal point of the lithotripter machine I then proceeded with shockwave lithotripsy. In the beginning the shockwave was delivered at a rate of 90 shocks per minute, anesthesia monitored the EKG for any ectopy. The power was slowly increased to 5 kV and subsequently at the 7 kV. I then proceeded with the treatment with shock wave therapy and around during the treatment to make sure the stone stayed in the F2 focal point during the entire treatment and after 3000 shockwaves were delivered to the stone under fluoroscopic guidance the treatment was completed. The patient was given instructions to call the office to make an a follow-up appointment with an xray to evaluate the success of the treatment, pateint understands that its possible the stones may need another procedure.At this point the patient's anesthetic was reversed patient was extubated and taken back to the PACU in stable condition. Surgical Findings: stones in right kidney broke up well but has many fragments, may need 2nd treatment., monitored with flurosocopy Complications Complications: No Admit VTE Documentation VTE Present on Admission: No VTE Mechan Device Prophylaxis: SCD's VTE Pharm Prophylaxis ordered?: No 09/27/24 0814 Cosigner Signature (if applicable): CC: Dr. Jem Henriquez MD; Dr. Buddy Melara MD Signed Normal [facility] MR/PATTutu 09-26-2024 MR/PAT.KELLY [facility] Medical Records Department [address] [place] [address] PAT - Anesthesia 09/26/242136 MR#: [id number] Acct: [id number] Name: STALIN MATA Rep #: [id number] : 1940 84 From: Shalom Martinez MD PCP: Dr. 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 When Was Last Pacemaker Check QUESTION #4 FULL TEXT: You/Your Family Experience fever (hyperthermia) with Anesthesia Last Oral Intake Last Oral intake: Last Oral Intake NPO since Meds taken in AM with sips of water? Meds patient instructed to take am of surgery PONV PONV - electric deicer assembler: PONV - electric deicer assembler Female No 09/26/24 15:59 HX of Motion Sickness No 09/26/24 15:59 HX of N/V After Surgery No 09/26/24 15:59 Non-Smoker Yes 09/26/24 15:59 Duration of Surgery greater Yes 09/26/24 15:59 than 60 minutes Number of Risk Factors 2 09/26/24 15:59 PONV Score Moderate Risk 09/26/24 15:59 Height Weight Height Weight: Anesthesia: Height Weight Height 5 ft 7 in 09/24/24 07:59 Respiratory Assessment Respiratory Assessment - electric deicer assembler: Respiratory Tract Infection Hx - electric deicer assembler Hx Respiratory Tract Infection No 09/26/24 15:59 STOP Sleep Apnea STOP Sleep Apnea - electric deicer assembler: STOP Sleep Apnea - electric deicer assembler Hx Hypertension Yes: CONTROLLED WITH MED 09/26/24 15:59 Hx Sleep Apnea No 09/26/24 15:59 CPAP BIPAP Do you snore loudly (louder Yes 09/26/24 15:59 than talking or can be heard Do you often feel tired/ No 09/26/24 15:59 fatigued/ sleepy during daytime? Has anyone observed you stop No 09/26/24 15:59 breathing during sleep? STOP Results Positive 09/26/24 15:59 QUESTION #5 FULL TEXT : Do you snore loudly (louder than talking or can be heard through closed doors)? 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 Specify any problems Hx of Preganancy in last 3 N/A 09/26/24 15:59 Months Nurse Filling Out Transfusion DSCHRIBER 09/26/24 15:59 Questions: Date: 09/26/24 09/26/24 15:59 Time: 16:00 09/26/24 15:59 Patient unable to answer at this time (ie. confused, unrespo /Reproducti on History /Reproducti ve History - electric deicer assembler: /Reproducti ve Hx- electric deicer assembler Hx Now No 09/26/24 15:59 Gestational Age (in weeks): EDC: Hx Hx Para Hx Section SAB No 09/26/24 15:59 Active Medications Active Medications: Current Medications Generic Name Dose Route Start Last Admin Trade Name Freq PRN Reason Stop Dose Admin Cefazolin Sodium 2 gm/ N/A 20 mls @ 400 mls/hr 09/27/24 07:30 IV 09/27/24 07:32 PREOP ONE [facility] Medical History (Updated 09/26/24 @ 16:08 by Oneyda Velazquez) Easy bruising History of hiatal hernia History of diverticulitis Gastric reflux Shortness of breath on exertion Hypertension History of echocardiogram Ventricular fibrillation Essential hypertension Atherosclerosis of coronary artery of k[place] heart without angina pectoris Hyperlipidemia Postoperative pain Wears contact lenses Arthritis Impacted cerumen of both ears Acute sinusitis Acute conjunctivitis of both eyes Left ureteral calculus Blackout Non-smoker History of carotid artery disease Leg cramps History of stress test Cardiology follow-up encounter History of heart attack His (more content not included)... Normal [facility] Basic Metabolic Profile (BMP )on 09-25-2024 BUN Normal 03-23 [facility] Comment on above: Result Comment: Canc elled via OM: Order cancelled - Patient discharged Performed By: #### L 500.2500, L100.0100 #### [facility] Laboratory [address] [place], [address] BUN/CRE Normal - [facility] Comment on above: Result Comment: Canc elled via OM: Order cancelled - Patient discharged Performed By: #### L 500.2500, L100.0100 #### [facility] [address] [place], [address] CA,Total Normal 8.5-10.1 [facility] Comment on above: Result Comment: Canc elled via OM: Order cancelled - Patient discharged Performed By: #### L 500.2500, L100.0100 #### [facility] [address] [place], [address] CL Normal 98-107 [facility] Comment on above: Result Comment: Canc elled via OM: Order cancelled - Patient discharged Performed By: #### L 500.2500, L100.0100 #### [facility] [address] [place], [address] CO2 Normal 21.0-32.0 [facility] Comment on above: Result Comment: Canc elled via OM: Order cancelled - Patient discharged Performed By: #### L 500.2500, L100.0100 #### [facility] [address] [place], [address] CREAT,SERUM Normal 0.70-1.30 [facility] Comment on above: Result Comment: Canc elled via OM: Order cancelled - Patient discharged Performed By: #### L 500.2500, L100.0100 #### [facility] [address] [place], [address] EST GFR Normal >60 [facility] Comment on above: Result Comment: Canc elled via OM: Order cancelled - Patient discharged Performed By: #### L 500.2500, L100.0100 #### [facility] [address] [place], [address] EST GFR - AA Normal >60 [facility] Comment on above: Result Comment: Canc elled via OM: Order cancelled - Patient discharged Performed By: #### L 500.2500, L100.0100 #### [facility] [address] [place], [address] GAP Normal 5-15 [facility] Comment on above: Result Comment: Canc elled via OM: Order cancelled - Patient discharged Performed By: #### L 500.2500, L100.0100 #### [facility] [address] [place], [address] GLU Normal 74-106 [facility] Comment on above: Result Comment: Canc elled via OM: Order cancelled - Patient discharged Performed By: #### L 500.2500, L100.0100 #### [facility] [address] [place], [address] Potassium Normal 3.5-5.1 [facility] Comment on above: Result Comment: Canc elled via OM: Order cancelled - Patient discharged Performed By: #### L 500.2500, L100.0100 #### [facility] [address] [place], [address] Basic Metabolic Profile (BMP) Normal 136-145 [facility] Comment on above: Result Comment: Canc elled via OM: Order cancelled - Patient discharged Performed By: #### L 500.2500, L100.0100 #### [facility] [address] [place], [address] CBC W/Diff, Automatedon 01-2 0-2024 Absolute Neut Normal 2.0-7.7 [facility] Comment on above: Result Comment: Canc elled via OM: Order cancelled - Patient discharged Performed By: #### L 500.2500, L100.0100 #### [facility] [address] [place], [address] HCT Normal 40-54 [facility] Comment on above: Result Comment: Canc elled via OM: Order cancelled - Patient discharged Performed By: #### L 500.2500, L100.0100 #### [facility] [address] [place], [address] HGB Normal 13.0-16.5 [facility] Comment on above: Result Comment: Canc elled via OM: Order cancelled - Patient discharged Performed By: #### L 500.2500, L100.0100 #### [facility] [address] [place] [place], [address] MCH Normal 27.0-32.0 [facility] Comment on above: Result Comment: Canc elled via OM: Order cancelled - Patient discharged Performed By: #### L 500.2500, L100.0100 #### [facility] [address] [place], [address] MCHC Normal 32-36 [facility] Comment on above: Result Comment: Canc elled via OM: Order cancelled - Patient discharged Performed By: #### L 500.2500, L100.0100 #### [facility] [address] [place], [address] MCV Normal 80-94 [facility] Comment on above: Result Comment: Canc elled via OM: Order cancelled - Patient discharged Performed By: #### L 500.2500, L100.0100 #### [facility] [address] [place], [address] NEUT% Normal 47-70 [facility] Comment on above: Result Comment: Canc elled via OM: Order cancelled - Patient discharged Performed By: #### L 500.2500, L100.0100 #### [facility] [address] [place], [address] PLT Normal 150-450 [facility] Comment on above: Result Comment: Canc elled via OM: Order cancelled - Patient discharged Performed By: #### L 500.2500, L100.0100 #### [facility] [address] [place], [address] RBC Normal 4.6-6.2 [facility] Comment on above: Result Comment: Canc elled via OM: Order cancelled - Patient discharged Performed By: #### L 500.2500, L100.0100 #### [facility] [address] [place], [address] RDW CV Normal 11.6-14.6 [facility] Comment on above: Result Comment: Canc elled via OM: Order cancelled - Patient discharged Performed By: #### L 500.2500, L100.0100 #### [facility] [address] [place], [address] RDW SD Normal 35.1-43.9 [facility] Comment on above: Result Comment: Canc elled via OM: Order cancelled - Patient discharged Performed By: #### L 500.2500, L100.0100 #### [facility] [address] [place], [place], [address] WBC Normal 4.4-11.0 [facility] Comment on above: Result Comment: Canc elled via OM: Order cancelled - Patient discharged Performed By: #### L 500.2500, L100.0100 #### [facility] [address] [place], [address] Discharge Instructionon 09-06 Discharge Instruction [facility] Medical Records Department [address] [place] [address] Instructions for Home/Discharge Instructions 09/24/24 1046 MR#: [id number] Acct: [id number] Name: STALIN MATA Rep #: [id number] : 1940 84 From: Jem Henriquez MD PCP: Dr. Buddy Melara MD Status:ADM IN Discharge Instructions Diet Discharge Diet: No restrictions DC O2, CPAP, BIPAP needs Home O2 Discharge instructions: No Dressing / Incision Discharge Activity: Return to Normal Activity and May Not Drive (while taking narcotic pain medications.) Dressing / Incision Call your doctor if you observe: Fever of 101 or Higher Follow Up Care Please Follow Up With: Jem Henriquez MD When: Call [phone] for an appointment Test Results: Test results from this visit will be discussed in further detail at your follow-up appointment, if applicable. Discharge Plan Admission Admit Date/Time: 09/23/24 12:37 Primary Reason for Your Visit: stent on rigth Attending Provider: Jem Henriquez Primary Care Provider: Buddy Melara Discharge Orders/Prescriptions Prescriptions: New ciprofloxacin HCl [Cipro] 500 mg tablet 500 mg PO BID Qty: 10 0RF oxycodone 5 mg tablet 5 mg PO Q6H PRN (Reason: pain) 3 Days Qty: 14 0RF Continued cholecalciferol (vitamin D3) 50 mcg (2,000 unit) tablet 50 mcg PO DAILY ascorbic acid (vitamin C) 500 mg tablet 500 mg PO DAILY@0800 metoprolol succinate 25 mg tablet extended release 24 hr 12.5 mg PO DAILY omeprazole magnesium 20 mg capsule,delayed release(DR/EC) 20 mg PO DAILY Qty: 90 3RF Held aspirin 81 MG tablet,delayed release (DR/EC) 81 mg PO DAILY Hold Instructions: Resume on 10/11/24. Patient Comments: pt reports that pt stopped 01/31/21 for surgery on 02/05/[address] henriquez instructions Referrals / Follow Up: Buddy Melara MD [Primary Care Provider] - Disposition Disposition (needs filled in before D/C Order can be placed): Home, Self Care 09/24/24 1046 Jem Henriquez MD CC: Dr. Buddy Melara MD Signed [facility] MR/POSTOP.ANE 09-24-2024 MR/POSTOP.[facility] Medical Records Department [address] [place] [address] Anesthesia Postop Eval I 09/24/241116 MR#: [id number] Acct: [id number] Name: STALIN MATA Rep #: [id number] : 1940 84 From: Shalom Martinez MD PCP: Dr. Buddy Melara MD Status:ADM IN Y Race: C [id number] Anesthesia: Postop Eval I Current Vital Signs Temperature: 97.8 F Pulse Rate: 59 Blood Pressure: 102/58 Respiratory Rate: 16 Pulse Ox: 100 Oxygen Delivery Method: Room Air Assessment Airway patent: Yes Spontaneous unlabored respirations: Yes Mental status: Awake and Calm nausea: No Vomiting: No Anesthesia Complication: No Fluid Hydration Crystalloid volume administer (ml): 200 Total IV fluid infused: 200 Progress Note Anesthesia document: Postop Eval 1 completed: Yes 09/24/241118 Date Shalom Martinez MD Cosigner Signature: Date CC: Signed [facility] [id number] 09-24-2024 MR/POST[address] Medical Records Department [address] [address] Anesthesia Postop Eval II 09/24/24 1349 MR#: [id number] Acct: [id number] Name: STALIN MATA Rep #: [id number] : 1940 84 From: Shalom Martinez MD PCP: Dr. Bdudy Melara MD Status:ADM IN Y Race: C Location: [place] [address] Anesthesia Postop Eval I Sum Postop Eval Completion status Anesthesia document: Postop Eval 1 completed: Yes Anesthesia Postop Eval I Summary Anesthesia Postop Eval I Summary: Anesthesia Postop Eval I: Assessment Summary Airway patent Yes 09/24/24 11:19 Spontaneous unlabored Yes 09/24/24 11:19 respirations Mental status Awake,Calm 09/24/24 11:19 nausea No 09/24/24 11:19 Vomiting No 09/24/24 11:19 Anesthesia Postop Eval I: Fluid Summary Crystalloid volume administer 200 09/24/24 11:19 (ml) Colloids volume administered ( ml) Blood Product volume administered (ml) Total IV fluid infused 200 09/24/24 11:19 Anesthesia Postop Eval I: Summary Notes Anesthesia Complication No 09/24/24 11:19 Anesthesia Complication Comment: Post-operative progress note Anesthesia: Postop Eval II Evaluation Mental status: Awake and Calm Pain Level: 0 nausea: No Vomiting: No Complications Anesthesia Complication: No 09/24/24 1349 Date Shalom Martinez MD Cosigner Signature: Date CC: Signed Normal [facility] Operative Reporton 5 Operative Report [facility] Medical Records Department [address] [place] [address] Operative Report 09/24/24 1110 MR#: [id number] Acct: [id number] Name: STALIN MATA Rep #: [id number] : 1940 84 From: Jem Henriquez MD PCP: Dr. Buddy Melara MD Status:ADM IN Location: [place] [address] Operative Report (Standard) Operative Information Date of Procedure: 09/24/24 Pre-Operative Diagnosis: Right proximal ureteral calculi Post-Operative Diagnosis: same Surgery/Procedure Performed: cysto and right stent placement safety officer: No Type of Anesthesia: General RN Documented Start/Stop Times: Operation Date: 09/24/24 10:10 Case Time Anesthesia Start 09/24/24 10:49 Into Room 09/24/24 10:49 Procedure Start 09/24/24 11:04 Procedure End 09/24/24 11:09 Procedure Start Time: 11:04 Procedure Stop Time: 11:11 Select all DRAINS/GRAFTS/IMPLAN TS that apply: Drains Drain details: left stent Estimated Blood Loss: 0 Specimen collected: No Description of surgery: Patient was taken back to the operating room after induction of general anesthesia, the patient was placed in dorsolithotomy position. The urethra and genitals were prepped and draped in usual sterile fashion. Using a 21 Albanian rigid cystourethroscope the entire length of the urethra was normal then went into the bladder. Identified the trigone the left and right ureteral orifice. I then cannulated the right orifice and advanced a wire up into the kidney. I then backloaded a 5 Albanian open ended catheter over the wire and injected contrast to delineate the anatomy. After the retrograde was performed I then used fluoroscopic images and guidance to advanced a wire up into the kidney and over the 0.038 glidewire I advanced a 6 Albanian by 26 cm double pigtail stent. I then pulled the 0.038 Glidewire off and the stent coiled in the kidney bladder good position. The bladder was then drained. We confirmed the position of the stent by fluoroscopy. Patient anesthetic was reversed and was taken back to the PACU in good condition. Surgical Findings: stone in right proximal ureter pushed back to renal pelvis Complications Complications: No Admit VTE Documentation VTE Present on Admission: No VTE Mechan Device Prophylaxis: SCD's VTE Pharm Prophylaxis ordered?: No 09/24/24 1112 Cosigner Signature (if applicable): CC: Dr. Jem Henriquez MD; Dr. Buddy Melara MD Signed Normal [facility] Abdomen/Pelvis without Conto n 09-23-2024 Abdomen/Pelvis without Cont [facility] Imaging Services [address] [place] [address] Abdomen/Pelvis without Cont MR#: [id number] Acct: [id number] Name: STALIN MATA Rep #: [id number] : 1940 M 84 From: Eren Taylor MD PCP: Dr. Buddy Melara MD Status: REG ER Study: Abdomen/Pelvis without Cont Date of Exam: 09/06 04/30 Exam# [id number] Ordering Dr: Nikita Kumar MD [id number] EXAM: CT ABDOMEN AND PELVIS WITHOUT INTRAVENOUS CONTRAST CLINICAL INDICATION: Pain TECHNIQUE: Helically acquired images were obtained of the abdomen and pelvis without intravenous contrast. This CT exam was performed using one or more of the following dose reduction techniques: automated exposure control, adjustment of the mA and/or kV according to patient size, and/or use of iterative reconstruction technique. COMPARISON: No relevant prior studies available. FINDINGS: LOWER THORAX: Mild reticulation of the lower lobes suggestive of acute or chronic interstitial lung disease. Small hiatal hernia. ABDOMEN: LIVER: Normal. Homogeneous. GALLBLADDER AND BILE DUCTS: Cholecystectomy clips are in place. Prominence of the common bile duct within the range of normal for postcholecystectomy patient. PANCREAS: Normal. No focal cystic mass. SPLEEN: Normal. Normal size without focal cystic or solid mass. ADRENALS: Normal. No nodules. KIDNEYS AND URETERS: 9 mm proximal right ureteral stone identified at the L3 level associated with right hydronephrosis. Multiple stones noted within the right kidney measuring up to 5 mm in diameter. Punctate stone noted within the lower pole of the left kidney. 2.6 cm cyst within the upper pole of the right kidney. No specific follow-up indicated. STOMACH AND BOWEL: Diverticulosis of the colon noted without evidence of acute diverticulitis. PELVIS: APPENDIX: Discs Appendix is visualized and normal in appearance. BLADDER: Normal. REPRODUCTIVE: Unremarkable as visualized. No mass. ABDOMEN and PELVIS: INTRAPERITONEAL SPACE: Normal. No ascites or other fluid collection. No free air. BONES/JOINTS: No suspicious lytic or blastic abnormality. SOFT TISSUES: Normal. No discrete abdominal or pelvic wall hernia. VASCULATURE: Normal. Abdominal aorta is non-dilated. LYMPH NODES: Normal. No enlarged lymph nodes. OTHER FINDINGS: Prominent disc generation at L4-5. CT/Abdomen/Pelvis without Cont IMPRESSION: 1. Obstructive 9 mm proximal right ureteral stone. 2. Bilateral nephrolithiasis. 3. Diverticulosis coli. 4. Small hiatal hernia. 5. Mild interstitial lung disease. Electronically Signed: Eren Taylor MD at 12:09 EST , CC: Dr. Nikita Kumar MD; Dr. Buddy Melara MD Assisted Living Home Director: Signed Normal [facility] Absolute lymphocyte countOrd ered By: Nikita Kumar on 09-23-2024 Lymphocytes Auto (Unsp spec) [#/Vol] 0.73 10*3/uL Low 0.83-4.51 [facility] Absolute neutrophil countOrd ered By: Nikita Kumar on 09-23-2024 Neutrophils (Bld) [#/Vol] 4.6 10*3/uL 2.0-7.7 [facility] Automated lymphocyte count a s percentage of total leukocytesOrdered By: Nikita Kumar on 09-23-2024 Lymphocytes/100 WBC Auto (Unsp spec) 12.8 % Low 19-41 [facility] Basic Metabolic Profile (BMP )on 09-23-2024 BUN/CRE 8.2 RATIO Low 10-20 [facility] Comment on above: Performed By: #### L 100.0100, L500.2500 ####[facility] [address] [place], [address] CA,Total 9.2 mg/dL Normal 8.5-10.1 [facility] Comment on above: Performed By: #### L 100.0100, L500.2500 ####[facility] [address] [place], [address] Chloride [Moles/Vol] 105 mmol/L Normal 98-107 [facility] Comment on above: Performed By: #### L 100.0100, L500.2500 ####[facility] [address] [place], [address] CO2 [Moles/Vol] 26.0 mmol/L Normal 21.0-32.0 [facility] Comment on above: Performed By: #### L 100.0100, L500.2500 ####[facility] [address] [place], [address] Creatinine [Mass/Vol] 1.59 mg/dL High 0.70-1.30 [facility] Comment on above: Result Comment: The validity of the calculated GFR GFRAA in patients over 70 years has not been determined. Clinical correlation is essential. Performed By: #### L 100.0100, L500.2500 ####[facility] [address] [place], [address] ECRCL 32.33 ml/min Normal [facility] Comment on above: Performed By: #### L 100.0100, L500.2500 ####[facility] [address] [place], [address] EST GFR - AA 54 mL/min Low >60 [facility] Comment on above: Result Comment: Afri can Russian GFR Calc Performed By: #### L 100.0100, L500.2500 ####[facility] [address] [place], [address] GAP 7 Normal 5-15 [facility] Comment on above: Performed By: #### L 100.0100, L500.2500 ####[facility] [address] [place], [address] GFR/1.73 sq M.predicted among non-blacks MDRD (S/P/Bld) [Vol rate/Area] 44 mL/min/{1.73_m2} Low >60 [facility] Comment on above: Result Comment: Non- GFR Calc Performed By: #### L 100.0100, L500.2500 ####[facility] [address] [place], [address] Glucose [Mass/Vol] 188 mg/dL High 74-106 [facility] Comment on above: Result Comment: Fast ing Glucose result greater than or equal to 126 mg/dL suggests DIABETES MELLITUS per A.D.A. criteria. Performed By: #### L 100.0100, L500.2500 ####[facility] [address] [place], [address] Potassium [Moles/Vol] 3.8 mmol/L Normal 3.5-5.1 [facility] Comment on above: Performed By: #### L 100.0100, L500.2500 ####[facility] [address] [place], [address] Sodium [Moles/Vol] 138 mmol/L Normal 136-145 [facility] Comment on above: Performed By: #### L 100.0100, L500.2500 ####[facility] [address] [place], [address] Urea nitrogen [Mass/Vol] 13 mg/dL Normal 7-18 [facility] Comment on above: Performed By: #### L 100.0100, L500.2500 ####[facility] [address] [place], [address] Basophil percentageOrdered B y: Nikita Kumar on 09-23-2024 Basophils/100 WBC (Bld) 0.7 % 0-[address] [facility] Bilirubin Test strip Ql (U)O rdered By: Nikita Kumar on 09-23-2024 Bilirubin Ql (U) Negative Negative [facility] Blood urea nitrogen (BUN)/cr eatinine ratioOrdered By: Nikita Kumar on 09-23-2024 Urea nitrogen/Creatinine [Mass ratio] 8.2 mg/mg Low 10-20 [facility] CBC W/Diff, Automatedon - Absolute Lymph 0.73 X10 3/uL Low 0.83-4.51 [facility] Comment on above: Performed By: #### L 100.0100, L500.2500 ####[facility] [address] [place], [address] Absolute Neut 4.6 X10 3/uL Normal 2.0-7.7 [facility] Comment on above: Performed By: #### L 100.0100, L500.2500 ####[facility] [address] [place], [address] Basophils/100 WBC (Bld) 0.7 % Normal 0-[address] [facility] Comment on above: Performed By: #### L 100.0100, L500.2500 ####[facility] [address] [place], [address] Eosinophils/100 WBC (Bld) 1.6 % Normal 0-5 [facility] Comment on above: Performed By: #### L 100.0100, L500.2500 ####[facility] [address] [place], [address] Erythrocyte distribution width (RBC) [Ratio] 12.3 % Normal 11.6-14.6 [facility] Comment on above: Performed By: #### L 100.0100, L500.2500 ####[facility] [address] [place], [address] Hematocrit (Bld) [Volume fraction] 42.3 % Normal 40-54 [facility] Comment on above: Performed By: #### L 100.0100, L500.2500 ####[facility] [address] [place], [address] Hemoglobin (Bld) [Mass/Vol] 14.5 g/dL Normal 13.0-16.5 [facility] Comment on above: Performed By: #### L 100.0100, L500.2500 ####[facility] [address] [place], [address] IG% 0.900 Normal 0.0-0.9 [facility] Comment on above: Result Comment: IG% - Immature Granulocytes (promyelocytes, myelocytes and metamyelocytes) > 1% indicates that a LEFT SHIFT is Present. Performed By: #### L 100.0100, L500.2500 ####[facility] [address] [place], [address] Lymphocytes/100 WBC (Bld) 12.8 % Low 19-41 [facility] Comment on above: Performed By: #### L 100.0100, L500.2500 ####[facility] [address] [place], [address] MCH (RBC) [Entitic mass] 31.3 pg Normal 27.0-32.0 [facility] Comment on above: Performed By: #### L 100.0100, L500.2500 ####[facility] [address] [place], [address] MCHC (RBC) [Mass/Vol] 34.3 g/dL Normal 32-36 [facility] Comment on above: Performed By: #### L 100.0100, L500.2500 ####[facility] [address] [place], [address] MCV (RBC) [Entitic vol] 91.2 fL Normal 80-[address] [facility] Comment on above: Performed By: #### L 100.0100, L500.2500 ####[facility] [address] [place], [address] Monocytes/100 WBC (Bld) 4.4 % Normal 0-[address] [facility] Comment on above: Performed By: #### L 100.0100, L500.2500 ####[facility] [address] [place], [address] Neutrophils/100 WBC (Bld) 79.6 % High 47-70 [facility] Comment on above: Performed By: #### L 100.0100, L500.2500 ####[facility] [address] [place], [address] Nucleated RBC (Bld) [#/Vol] 0 10*3/uL Normal 0-5 [facility] Comment on above: Performed By: #### L 100.0100, L500.2500 ####[facility] [address] [place], [address] Platelet mean volume (Bld) [Entitic vol] 10.3 fL Normal 6.2-12.0 [facility] Comment on above: Performed By: #### L 100.0100, L500.2500 ####[facility] [address] [place], [address] Platelets (Bld) [#/Vol] 168 10*3/uL Normal 150-450 [facility] Comment on above: Performed By: #### L 100.0100, L500.2500 ####[facility] [address] [place], [address] RBC (Bld) [#/Vol] 4.64 10*6/uL Normal 4.6-6.2 [facility] Comment on above: Performed By: #### L 100.0100, L500.2500 ####[facility] [address] [place], [address] RDW SD 41.1 fl Normal 35.1-43.9 [facility] Comment on above: Performed By: #### L 100.0100, L500.2500 ####[facility] [address] [place], [address] WBC (Bld) [#/Vol] 5.7 10*3/uL Normal 4.4-11.0 [facility] Comment on above: Performed By: #### L 100.0100, L500.2500 ####[facility] [address] [place], [address] Carbon dioxide measurementOr dered By: Nikita Kumar on 09-23-2024 CO2 [Moles/Vol] 26.0 mmol/L 21.0-32.0 [facility] Chloride measurementOrdered By: Nikita Kumar on 09-23-2024 Chloride [Moles/Vol] 105 mmol/L 98-107 [facility] Emergency Department Summary on 09-23-2024 Emergency Department Summary [facility] Medical Records Department [address] [place] [address] Emergency Department Summary 09/23/24 MR#: [id number] Acct: [id number] Name: STALIN MATA Rep #: [id number] : 1940 84 From: Nikita Kumar MD PCP: Dr. Buddy Melara MD Status:REG ER Location: ED HPI HPI - GI History of Present Illness Chief Complaint: Flank Pain Detail of Chief Complaint: Right flank pain 8 AM this morning. Informant: patient Abdominal Pain/Flank Pain Onset: Today and Hours Context: Sudden Onset Timing: Continuous Quality: Sharp and Stabbing Location: Right Flank Current Severity: Moderate Maximum Severity: Moderate Worsened by: Nothing Relieved by: Nothing Nausea/Vomiting/Emes is GI Symptom: Negative for Nausea Diarrhea/Melena/Yousif tochezia GI Symptom: Negative for Diarrhea Associated Symptoms Associated Symptoms: Negative for Dysuria, Frequency or Hematuria Narrative Narrative: 84-year-old male history of kidney stones, prior HI. Lithotripsy for his prior stones and sees Dr. Samuel Henriquez of urology. States this morning around 8 AM he had sudden onset of right flank pain. Denies vomiting or fever. No dysuria or hematuria. States has been feeling well the last several days. This does feel like his prior stones. Prior similar symptoms: Yes Recent Illness/Hospitalizat ion: No PFSH PFSH Medical History Ventricular fibrillation Hypothyroidism Essential hypertension Atherosclerosis of coronary artery of kiana heart without angina pectoris Hyperlipidemia Postoperative pain Wears contact lenses Arthritis Kidney stones Shortness of breath on exertion Impacted cerumen of both ears Acute sinusitis Acute conjunctivitis of both eyes Left ureteral calculus Easy bruising Excessive bleeding Blackout Gastric reflux Non-smoker History of carotid artery disease Leg cramps History of stress test Cardiology follow-up encounter History of heart attack History of irregular heartbeat History of kidney stones Fatigue Heart disease Right ureteral calculus Home Medications ???Medication ???Instructions ???Recorded ???Last Taken ???Type aspirin 81 mg tablet,delayed 81 mg PO DAILY BLOOD THINNER 04/04/20 01/06/23 History release ascorbic acid (vitamin C) 500 mg 500 mg PO DAILY@0800 supplement 02/19/23 Unknown History tablet cholecalciferol (vitamin D3) 50 50 mcg PO DAILY 02/21/24 Unknown History mcg (2,000 unit) tablet omeprazole magnesium 20 mg 20 mg PO DAILY GERD #90 caps 05/03/24 Unknown Rx capsule,delayed release Allergy/AdvReac Type Severity Reaction Status Date / Time No Known Allergies Allergy Verified 09/23/24 10:11 Family History Brother Colon cancer Diabetes Myocardial infarction Mother Diabetes Myocardial infarction Father Heart disease Surgical History H/O carotid endarterectomy ( 01/2023) Hx of tooth extraction Hx of cystostomy History of heart artery stent (12/28/03) History of tonsillectomy History of cataract surgery History of cholecystectomy History of heart bypass surgery (09/30/04) Social History Smoking Status: Never smoker alcohol intake: never substance use type: does not use caffeine: No ROS ROS ED ROS Narrative Denies recent illness. Constitutional Constitutional ED: Denies chills or fever(s) ENT ENT ED: Denies ear pain Cardiovascular Cardiovascular: Denies chest pain Respiratory/Chest Respiratory/Chest: Denies cough or dyspnea Gastrointestinal Gastrointestinal: Reports abdominal pain and other Details: Right flank pain. Genitourinary Genitourinary ED: Denies dysuria or hematuria Musculoskeletal Musculoskeletal: Reports back pain; Denies arthralgias Integumentary Denies abscess Neurologic Neurologic: Denies headache(s) Psychiatric Psychiatric: Denies anxiety Endocrine Endocrinology: Denies polydipsia Hematologic/Lymphati c Hematologic/Lymphati c: Denies easy bleeding Allergic/Immunologic Allergic/Immunologic ED: Denies mouth swelling, tongue swelling or urticaria EXAM Physical Exam Narrative Exam Narrative: 84-year-old male right flank pain. Vital signs are stable afebrile. Significant other at the bedside. H EENT exam. Round reactive light. Mytrex members. Neck nontender. Lungs clear to auscultation. Heart regular rate rhythm rate about 70 no murmur. Chest wall ribs nontender. Abdomen soft nondistended normal bowel sounds without peritoneal signs. Back mild CVA tenderness. No ecchymosis or bruising or rash. Moving all 4 extremities. Nontender no edema. Normal strength. Neurologically is awake and alert no focal motor defi (more content not included)... Normal [facility] Eosinophil percentageOrdered By: Nikita Kumar on 09-23-2024 Eosinophils/100 WBC (Bld) 1.6 % 0-5 [facility] Erythrocyte distribution wid th ratioOrdered By: Nikita Kumar on 09-23-2024 Erythrocyte distribution width (RBC) [Ratio] 12.3 % 11.6-14.6 [facility] Erythrocyte distribution wid th standard deviationOrdered By: Nikita Kumar on 09-23-2024 Erythrocyte distribution width (RBC) [Ratio] 41.1 fl 35.1-43.9 [facility] Glomerular filtration rate ( GFR) estimationOrdered By: Nikita Kumar on 09-23-2024 GFR/1.73 sq M.predicted among non-blacks MDRD (S/P/Bld) [Vol rate/Area] 44 mL/min/{1.73_m2} Low >60 [facility] Comment on above: Non- GFR Calc Glucose measurementOrdered B y: Nikita Kumar on 09-23-2024 Glucose [Mass/Vol] 188 mg/dL High 74-106 [facility] Comment on above: Fasting Glucose resu lt greater than or equal to 126 mg/dL suggests DIABETES MELLITUS per A.D.A. criteria. Hematocrit Auto (Bld) [Volum e fraction]Ordered By: Nikita Kumar on 09-23-2024 Hematocrit (Bld) [Volume fraction] 42.3 % 40-54 [facility] Hemoglobin measurementOrdere d By: Nikita Kumar on 09-23-2024 Hemoglobin (Bld) [Mass/Vol] 14.5 g/dL 13.0-16.5 [facility] Immature granulocytes/100 WB C Auto (Bld)Ordered By: Nikita Kumar on 09-23-2024 Immature granulocytes/100 WBC (Bld) 0.900 % 0.0-0.9 [facility] Comment on above: IG% - Immature Granu locytes (promyelocytes, myelocytes and metamyelocytes) > 1% indicates that a LEFT SHIFT is Present. Ketones Test strip Ql (U)Ord ered By: Nikita Kumar on 09-23-2024 Ketones Ql (U) Negative Negative [facility] MCV (mean corpuscular volume ) determinationOrdered By: Nikita Kumar on 09-23-2024 MCV (RBC) [Entitic vol] 91.2 fL 80-[address] [facility] Mean corpuscular hemoglobin (MCH) determinationOrdered By: Nikita Kumar on 09-23-2024 MCH (RBC) [Entitic mass] 31.3 pg 27.0-32.0 [facility] Mean corpuscular hemoglobin concentration (MCHC) determinationOrdered By: Nikita Kumar on 09-23-2024 MCHC (RBC) [Mass/Vol] 34.3 g/dL 32-36 [facility] Mean platelet volume determi nationOrdered By: Nikita Kumar on 09-23-2024 Platelet mean volume (Bld) [Entitic vol] 10.3 fL 6.2-12.0 [facility] Microscopic analysis of urin e for red blood cells (RBC)Ordered By: Niikta Kumar on 09-23-2024 Microscopic analysis of urine for red blood cells (RBC) 0-5 SEEN /hpf 0-5 [facility] Monocyte percentageOrdered B y: Nikita Kumar on 09-23-2024 Monocytes/100 WBC (Bld) 4.4 % 0-[address] [facility] Mucus LM Ql (Urine sed)Order ed By: Nikita Kuamr on 09-23-2024 Mucus Ql (Urine sed) 0 SEEN /hpf [facility] Neutrophil percentageOrdered By: Nikita Kumar on 09-23-2024 Neutrophils/100 WBC (Bld) 79.6 % High 47-70 [facility] Nitrite Test strip Ql (U)Ord ered By: Nikita Kumar on 09-23-2024 Nitrite Ql (U) Negative Negative [facility] Nucleated red blood cell per centageOrdered By: Nikita Kumar on 09-23-2024 Nucleated RBC/100 WBC (Bld) [Ratio] 0 % 0-5 [facility] Platelet countOrdered By: Colt Kumar on 09-23-2024 Platelets (Bld) [#/Vol] 168 10*3/uL 150-450 [facility] Potassium measurementOrdered By: Nikita Kumar on 09-23-2024 Potassium [Moles/Vol] 3.8 mmol/L 3.5-5.1 [facility] Protein Test strip Ql (U)Ord ered By: Nikita Kumar on 09-23-2024 Protein Ql (U) 15 mg/dl High Negative [facility] RBC Auto (Bld) [#/Vol]Ordere d By: Nikita Kumar on 09-23-2024 RBC (Bld) [#/Vol] 4.64 10*6/uL 4.6-6.2 [facility] Serum anion gap measurementO rdered By: Nikita Kumar on 09-23-2024 Anion gap [Moles/Vol] 7 mmol/L 5-15 [facility] Serum or plasma calcium huber urement (mass/volume)Ordered By: Nikita Kumar on 09-23-2024 Calcium [Mass/Vol] 9.2 mg/dL 8.5-10.1 [facility] Serum or plasma creatinine m easurement (mass/volume)Ordered By: Nikita Kumar on 09-23-2024 Creatinine [Mass/Vol] 1.59 mg/dL High 0.70-1.30 [facility] Comment on above: The validity of the calculated GFR & GFRAA in patients over 70 years has not been determined. Clinical correlation is essential. Serum or plasma urea nitroge n measurement (mass/volume)Ordered By: Nikita Kumar on 09-23-2024 Urea nitrogen [Mass/Vol] 13 mg/dL 7-18 [facility] Sodium levelOrdered By: Nikita Kumar on 09-23-2024 Sodium [Moles/Vol] 138 mmol/L 136-145 [facility] Squamous epithelial cells de tection in urine sediment by light microscopyOrdered By: Nikita Kumar on 09-23-2024 Epithelial cells.squamous LM Ql (Urine sed) 0 SEEN /hpf 0-5 [facility] Urinalysis, Completeon 09-23 RBC 0-5 SEEN Normal 0-5 [facility] Comment on above: Order Comment: CLEAN CATCH Performed By: #### L [id number] #### [facility] [address] [place], [address] BACTERIA 0 SEEN Normal None Seen [facility] Comment on above: Order Comment: CLEAN CATCH Performed By: #### L [id number] #### [facility] [address] [place], [address] EPI,SQUAMOUS 0 SEEN Normal 0-5 [facility] Comment on above: Order Comment: CLEAN CATCH Performed By: #### L [id number] #### [facility] [address] [place], [address] Mucus Ql (Urine sed) 0 SEEN Normal [facility] Comment on above: Order Comment: CLEAN CATCH Performed By: #### L [id number] #### [facility] [address] [place], [address] WBC 0 SEEN Normal 0-5 [facility] Comment on above: Order Comment: CLEAN CATCH Performed By: #### L [id number] #### [facility] [address] [place], [address] Urine clarityOrdered By: Cody Kumar on 09-23-2024 Clarity (U) Clear Clear [facility] Urine color determinationOrd ered By: Nikita Kumar on 09-23-2024 Color (U) Yellow Yellow [facility] Urine glucose detectionOrder ed By: Nikita Kumar on 09-23-2024 Glucose Ql (U) Normal mg/dl Normal [facility] Urine leukocyte esterase det ection by dipstickOrdered By: Nikita Kumar on 09-23-2024 Leukocyte esterase Test strip Ql (U) 25 /ul High Negative [facility] Urine pHOrdered By: Nikita mejía on 09-23-2024 pH (U) 7.0 [pH] 5.0 - 8.0 [facility] Urine sediment bacteria coun t by microscopy (number/high power field)Ordered By: Nikita Kumar on 09-23-2024 Bacteria LM.HPF (Urine sed) [#/Area] 0 /[HPF] None Seen [facility] Urine specific gravity measu rementOrdered By: Nikita Kumar on 09-23-2024 Specific gravity (U) [Rel density] 1.010 1.002-1.030 [facility] Urine urobilinogen measureme ntOrdered By: Nikita Kumar on 09-23-2024 Urobilinogen Ql (U) Normal mg/dl Normal [facility] White blood cell (WBC) count Ordered By: Nikita Kumar on 09-23-2024 WBC (Bld) [#/Vol] 5.7 10*3/uL 4.4-11.0 [facility] White blood cell countOrdere d By: Nikita Kumar on 09-23-2024 White blood cell count 0 SEEN /hpf 0-[address] [facility] Absolute lymphocyte countOrd ered By: Pedro Ruiz on 01-07-2023 Lymphocytes Auto (Unsp spec) [#/Vol] 1.53 10*3/uL 0.83-4.51 [facility] Basophil percentageOrdered B y: Pedro Ruiz on 01-07-2023 Basophils/100 WBC (Bld) 0.4 % 0-[address] [facility] Eosinophils/100 WBC (Bld) 2.0 % 0-5 [facility] Neutrophils (Bld) [#/Vol] 5.0 10*3/uL 2.0-7.7 [facility] Neutrophils/100 WBC (Bld) 66.8 % 47-70 [facility] WBC (Bld) [#/Vol] 7.5 10*3/uL 4.4-11.0 [facility] Blood erythrocytes count (nu mber/volume)Ordered By: Pedro Ruiz on 01-07-2023 RBC (Bld) [#/Vol] 4.14 10*6/uL 4.6-6.2 [facility] Blood hemoglobin measurement (mass/volume)Ordered By: Pedro Ruiz on 01-07-2023 Hemoglobin (Bld) [Mass/Vol] 12.5 g/dL 13.0-16.5 [facility] Blood lymphocytes/100 leukoc ytesOrdered By: Pedro Ruiz on 01-07-2023 Lymphocytes/100 WBC (Bld) 20.5 % 19-41 [facility] Blood monocytes/100 leukocyt esOrdered By: Pedro Ruiz on 01-07-2023 Monocytes/100 WBC (Bld) 9.1 % 0-[address] [facility] Blood platelet mean volumeOr dered By: Pedro Ruiz on 01-07-2023 Platelet mean volume (Bld) [Entitic vol] 10.5 fL 6.2-12.0 [facility] Determination of erythrocyte mean corpuscular volume (MCV)Ordered By: Pedro Ruiz on 01-07-2023 MCV (RBC) [Entitic vol] 90.6 fL 80-[address] [facility] Hematocrit Auto (Bld) [Volum e fraction]Ordered By: Pedro Ruiz on 01-07-2023 Hematocrit (Bld) [Volume fraction] 37.5 % 40-54 [facility] - Hematology and Cell countsOrdered By: Pedro Ruiz on 01-07-2023 Erythrocyte distribution width (RBC) [Entitic vol] 41.9 fL 35.1-43.9 [facility] Erythrocyte distribution width (RBC) [Ratio] 12.7 % 11.6-14.6 [facility] Immature granulocytes/100 WBC (Bld) 1.200 % 0.0-0.9 [facility] Comment on above: IG% - Immature Granu locytes (promyelocytes, myelocytes and metamyelocytes) > 1% indicates that a LEFT SHIFT is Present. MCH (RBC) [Entitic mass] 30.2 pg 27.0-32.0 [facility] Nucleated RBC/100 WBC (Bld) [Ratio] 0 % 0-5 [facility] MCHC Auto (RBC) [Mass/Vol]Or dered By: Pedro Ruiz on 01-07-2023 MCHC (RBC) [Mass/Vol] 33.3 g/dL 32-36 [facility] Platelets bldOrdered By: Rachael Ruiz on 01-07-2023 Platelets (Bld) [#/Vol] 178 10*3/uL 150-450 [facility] No Panel InformationOrdered By: Pedro Ruiz on 01-06-2023 Activated Clotting Time 299 sec 74-[address] [facility] Basophil percentageOrdered B y: Pedro Ruiz on 12-31-2022 Chloride [Moles/Vol] 106 mmol/L 98-107 [facility] Glucose [Mass/Vol] 79 mg/dL 74-106 [facility] Potassium [Moles/Vol] 4.1 mmol/L 3.5-5.1 [facility] Sodium [Moles/Vol] 136 mmol/L 136-145 [facility] - Chemistry and C hemistry - challengeOrdered By: Pedro Ruiz on 12-31-2022 CO2 [Moles/Vol] 27.0 mmol/L 21.0-32.0 [facility] Urea nitrogen/Creatinine [Mass ratio] 8.9 mg/mg 10-20 [facility] No Panel InformationOrdered By: Pedro Ruiz on 12-31-2022 Estimated GFR (MDRD) Amer 72 mL/min >60 [facility] Comment on above: GFR Calc Estimated GFR (MDRD) Non-Af Amer 60 mL/min >60 [facility] Comment on above: Non- GFR Calc Serum or plasma calcium huber urement (mass/volume)Ordered By: Pedro Ruiz on 12-31-2022 Calcium [Mass/Vol] 9.2 mg/dL 8.5-10.1 [facility] Serum or plasma creatinine m easurement (mass/volume)Ordered By: Pedro Ruiz on 12-31-2022 Creatinine [Mass/Vol] 1.23 mg/dL 0.70-1.30 [facility] Comment on above: The validity of the calculated GFR & GFRAA in patients over 70 years has not been determined. Clinical correlation is essential. Serum or plasma urea nitroge n measurement (mass/volume)Ordered By: Pedro Ruiz on 12-31-2022 Urea nitrogen [Mass/Vol] 11 mg/dL 7-18 [facility] Thin prep Papanicolaou smear with manual screeningOrdered By: Pedro Ruiz on 12-31-2022 Thin prep Papanicolaou smear with manual screening 3 5-15 [facility] CT ANGIOGRAPHY NECK W/CONTRA STon 10-22-2022 CT ANGIOGRAPHY NECK W/CONTRAST ORIGINAL EXAMINATION: CTA neck: TECHNIQUE: Contiguous spiral images were obtained in the axial plane, following the administration of intravenous contrast using CT angiographic protocol. Sagittal and coronal images were reconstructed from the axial plane acquisition. Additional 3D reformatted MIP reconstructions were presented to aid in the interpretation of this study. Images were obtained from the skull base through the upper lobes. Contrast: Omnipaque 350 One or more the following dose reduction techniques were used:automated exposure control, adjustment of the mA and/or kV according to patient size, or use of iterative reconstruction technique. Additional comment: None. COMPARISON: CTA neck 10/24/2020, 11/08/2019 HISTORY: ORDERING SYSTEM PROVIDED HISTORY: Reason for Exam: CAROTID STENOSIS FINDINGS: Neck Angiogram Aorta: Atherosclerotic calcifications of the thoracic aortic arch without a hemodynamically significant stenosis. Diffuse calcifications of the proximal left subclavian artery without a hemodynamically significant stenosis. Right common carotid artery: No hemodynamically significant flow-limiting stenosis. Right internal carotid artery: No hemodynamically significant flow-limiting stenosis. Right external carotid artery: No hemodynamically significant flow-limiting stenosis. Left common carotid artery/internal carotid artery: Redemonstrated is dense focal calcified plaque of the distal most common carotid artery and bulb (axial image 43 series 3 and sagittal image 18 series 602) resulting in a like plaque with poststenotic dilatation of the carotid bulb. Configuration of the plaque limits quantification. Near occlusion of the distal most common carotid artery is demonstrated. Left external carotid artery: No hemodynamically significant flow-limiting stenosis. V1/V2 vertebral arteries: No hemodynamically significant flow-limiting stenosis. Vertebral artery dominance: Right Additional comments: Mild focal atherosclerotic plaque within the proximal basilar artery (axial image 81 series 3). Diffuse atherosclerotic calcifications of the bilateral, right greater than left internal carotid artery siphons resulting in at least mild stenoses. Neck Soft tissues: 8 mm round nodule within the right lobe of the thyroid gland. This finding does not require additional follow-up imaging. Bones: No acute/recent fracture, significant chronic height loss or focal osseous lesion. Moderate spondylotic changes involve C5-C6 and C6-C7. A small pneumatocyst is located within the posterior C6 vertebral body. Lung apices: Stable 11 mm juxtapleural lateral right upper lobe parenchymal opacity (axial image 1 series 3). IMPRESSION: 1. Self like calcified plaque of the distal most common carotid artery extending into the carotid bulb with resultant poststenotic dilatation of the bulb. 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 2. No measurable stenosis of the right internal carotid artery. 3. No hemodynamically significant stenosis of the bilateral vertebral arteries. The estimate of the degree of stenosis included in this report is based on the NASCET method for calculating stenosis, using the internal carotid artery distal to the stenosis as the reference point. Communication was initiated for the radiology call center by this radiologist through PACS at 8:19 a.m. on 10/22/2022with instructions to provide the results of this examination to a licensed caregiver. RECOMMENDATIONS: Subcentimeter incidental right thyroid nodule. No follow-up imaging is recommended. Reference: J Am Gilberto Radiol. 2015 Oct;12(2): 143-50 Interpreted by: Tang Rodriguez MD Preliminary Report By: Tang Rodriguez MD Electronically signed By Tang Rodriguez MD Dictated Date: 10/22/2022 8:00:05 AM Prelim Date: 10/22/2022 8:19:51 AM Sign Date: 10/22/2022 8:19:51 AM Ordering Provider: MELINA Gutierrez [facility] ([place]) .Auto Diffon 10-08-2022 Basophil, Absolute 0.0 10 3/mcL Normal 0.0-0.2 [facility] ([place]) Comment on above: Performed By: #### A JORGE, GFR, CBC, ADIFF, CMP, LIPID #### [address] [address] Basophils/100 WBC (Bld) 0.4 % Normal 0.0-2.5 A [facility] ([place]) Comment on above: Performed By: #### A JORGE, GFR, CBC, ADIFF, CMP, LIPID #### [address] [address] Eosinophil, Absolute 0.2 10 3/mcL Normal 0.0-0.4 [facility] ([place]) Comment on above: Performed By: #### A JORGE, GFR, CBC, ADIFF, CMP, LIPID #### [address] [address] Eosinophils/100 WBC (Bld) 2.6 % Normal 0.0-7.0 [facility] ([place]) Comment on above: Performed By: #### A JORGE, GFR, CBC, ADIFF, CMP, LIPID #### [address] [address] Lymphocyte, Absolute 1.2 10 3/mcL Normal 0.8-3.9 [facility] ([place]) Comment on above: Performed By: #### A JORGE, GFR, CBC, ADIFF, CMP, LIPID #### [address] [address] Lymphocytes/100 WBC (Bld) 21.4 % Normal 10.0-50.0 [facility] ([place]) Comment on above: Performed By: #### A JORGE, GFR, CBC, ADIFF, CMP, LIPID #### [address] [address] Monocyte, Absolute 0.5 10 3/mcL Normal 0.2-1.0 [facility] ([place]) Comment on above: Performed By: #### A JORGE, GFR, CBC, ADIFF, CMP, LIPID #### [address] [address] Monocytes/100 WBC (Bld) 8.4 % Normal 1.7-13.0 [facility] ([place]) Comment on above: Performed By: #### A JORGE, GFR, CBC, ADIFF, CMP, LIPID #### [address] [address] Neutrophils/100 WBC (Bld) 67.2 % Normal 37.0-80.0 [facility] ([place]) Comment on above: Performed By: #### A JORGE, GFR, CBC, ADIFF, CMP, LIPID #### [address] [address] .GFRon 10-08-2022 GFR 73 ml/min/1.73sqm Normal [facility] ([place]) Comment on above: Result Comment: GFR Population mean for , Non- Americans Ages 20-29 = 116 mL/min/1.73 sq.m. Ages 30-39 = 107 mL/min/1.73 sq.m. Ages 40-49 = 99 mL/min/1.73 sq.m. Ages 50-59 = 93 mL/min/1.73 sq.m. Ages 60-69 = 85 mL/min/1.73 sq.m. Ages 70+ = 75 mL/min/1.73 sq.m. Chronic Kidney Disease: Less than 60 mL/min/1.73 square meters End Stage Renal Disease: Less than 15 mL/min/1.73 square meters Performed By: #### A JORGE, GFR, CBC, ADIFF, CMP, LIPID #### [address] [address] GFR Non- 60 ml/min/1.73sqm Normal [facility] ([place]) Comment on above: Result Comment: GFR Population mean for , Non- Americans Ages 20-29 = 116 mL/min/1.73 sq.m. Ages 30-39 = 107 mL/min/1.73 sq.m. Ages 40-49 = 99 mL/min/1.73 sq.m. Ages 50-59 = 93 mL/min/1.73 sq.m. Ages 60-69 = 85 mL/min/1.73 sq.m. Ages 70+ = 75 mL/min/1.73 sq.m. Chronic Kidney Disease: Less than 60 mL/min/1.73 square meters End Stage Renal Disease: Less than 15 mL/min/1.73 square meters Performed By: #### A JORGE, GFR, CBC, ADIFF, CMP, LIPID #### [address] [address] .NEUABSon 10-08-2022 Neutrophil, Absolute 3.9 10 3/mcL Normal 2.9-6.2 [facility] ([place]) Comment on above: Performed By: #### A JORGE, GFR, CBC, ADIFF, CMP, LIPID #### [address] [address] CBCon 10-08-2022 Erythrocyte distribution width (RBC) [Ratio] 12.5 % Normal 11.5-14.5 [facility] ([place]) Comment on above: Performed By: #### A JORGE, GFR, CBC, ADIFF, CMP, LIPID #### [address] [address] Hematocrit (Bld) [Volume fraction] 42.9 % Normal 42.0-52.0 [facility] ([place]) Comment on above: Performed By: #### A JORGE, GFR, CBC, ADIFF, CMP, LIPID #### [address] [address] Hgb 14.6 G/dL Normal 14.0-18.0 [facility] ([place]) Comment on above: Performed By: #### A JORGE, GFR, CBC, ADIFF, CMP, LIPID #### [address] [address] MCH (RBC) [Entitic mass] 31.1 pg Normal 27.0-31.2 [facility] ([place]) Comment on above: Performed By: #### A JORGE, GFR, CBC, ADIFF, CMP, LIPID #### [place] [address] MCHC 34.1 G/dL Normal 31.8-35.4 [facility] ([place]) Comment on above: Performed By: #### A JORGE, GFR, CBC, ADIFF, CMP, LIPID #### [address] [address] MCV (RBC) [Entitic vol] 91.3 fL Normal 80.0-94.0 A [facility] ([place]) Comment on above: Performed By: #### A JORGE, GFR, CBC, ADIFF, CMP, LIPID #### [address] [address] Platelet 182 10 3/mcL Normal 130-400 [facility] ([place]) Comment on above: Performed By: #### A JORGE, GFR, CBC, ADIFF, CMP, LIPID #### [address] [address] Platelet mean volume (Bld) [Entitic vol] 9.0 fL Normal 7.4-10.4 [facility] ([place]) Comment on above: Performed By: #### A JORGE, GFR, CBC, ADIFF, CMP, LIPID #### [address] [address] RBC 4.70 10 6/mcL Normal 4.04-6.13 [facility] ([place]) Comment on above: Performed By: #### A JORGE, GFR, CBC, ADIFF, CMP, LIPID #### [address] [address] WBC 5.8 10 3/mcL Normal 4.6-10.8 [facility] ([place]) Comment on above: Performed By: #### A JORGE, GFR, CBC, ADIFF, CMP, LIPID #### [address] [address] CMPon 10-08-2022 Albumin Level 3.9 G/dL Normal 3.4-4.8 [facility] ([place]) Comment on above: Performed By: #### A JORGE, GFR, CBC, ADIFF, CMP, LIPID #### [address] [address] Albumin/Globulin [Mass ratio] 1.3 {ratio} Normal 1.1-2.5 [facility] ([place]) Comment on above: Performed By: #### A JORGE, GFR, CBC, ADIFF, CMP, LIPID #### [address] [address] ALP [Catalytic activity/Vol] 68 U/L Normal 40-135 [facility] ([place]) Comment on above: Performed By: #### A JORGE, GFR, CBC, ADIFF, CMP, LIPID #### [address] [address] ALT [Catalytic activity/Vol] 24 U/L Normal 16-63 [facility] ([place]) Comment on above: Performed By: #### A JORGE, GFR, CBC, ADIFF, CMP, LIPID #### [address] [address] AST [Catalytic activity/Vol] 28 U/L Normal 10-40 [facility] ([place]) Comment on above: Performed By: #### A JORGE, GFR, CBC, ADIFF, CMP, LIPID #### [address] [address] Bili Total 1.0 mg/dL Normal 0.2-1.0 [facility] ([place]) Comment on above: Result Comment: Use of this assay is not recommended for patients undergoing treatment with eltrombopag due to the potential for falsely elevated results. Performed By: #### A JORGE, GFR, CBC, ADIFF, CMP, LIPID #### [address] [address] BUN/Creatinine Ratio 13 ratio Normal 7-27 [facility] ([place]) Comment on above: Performed By: #### A JORGE, GFR, CBC, ADIFF, CMP, LIPID #### [address] [address] Calcium [Mass/Vol] 8.7 mg/dL Normal 8.4-10.2 [facility] ([place]) Comment on above: Performed By: #### A JORGE, GFR, CBC, ADIFF, CMP, LIPID #### [address] [address] Chloride [Moles/Vol] 104 mmol/L Normal 98-107 [facility] ([place]) Comment on above: Performed By: #### A JORGE, GFR, CBC, ADIFF, CMP, LIPID #### [address] [address] CO2 [Moles/Vol] 29 mmol/L Normal 23-31 [facility] ([place]) Comment on above: Performed By: #### A JORGE, GFR, CBC, ADIFF, CMP, LIPID #### [address] [address] Creatinine [Mass/Vol] 1.16 mg/dL Normal 0.70-1.30 [facility] ([place]) Comment on above: Performed By: #### A JORGE, GFR, CBC, ADIFF, CMP, LIPID #### [address] [address] Electrolyte Balance 8.0 mEq/L Normal 4.0-15.0 [facility] ([place]) Comment on above: Performed By: #### A JORGE, GFR, CBC, ADIFF, CMP, LIPID #### [address] [address] Globulin 3.0 G/dL Normal [facility] ([place]) Comment on above: Performed By: #### A JORGE, GFR, CBC, ADIFF, CMP, LIPID #### [address] [address] Glucose [Mass/Vol] 85 mg/dL Normal 83-110 [facility] ([place]) Comment on above: Performed By: #### A JORGE, GFR, CBC, ADIFF, CMP, LIPID #### [address] [address] Potassium [Moles/Vol] 4.5 mmol/L Normal 3.5-5.1 [facility] ([place]) Comment on above: Performed By: #### A JORGE, GFR, CBC, ADIFF, CMP, LIPID #### [address] [address] Sodium [Moles/Vol] 141 mmol/L Normal 136-145 [facility] ([place]) Comment on above: Performed By: #### A JORGE, GFR, CBC, ADIFF, CMP, LIPID #### [address] [address] Total Protein 6.9 G/dL Normal 6.4-8.2 [facility] ([place]) Comment on above: Performed By: #### A JORGE, GFR, CBC, ADIFF, CMP, LIPID #### [address] [address] Urea nitrogen [Mass/Vol] 15 mg/dL Normal 7-18 [facility] ([place]) Comment on above: Performed By: #### A JORGE, GFR, CBC, ADIFF, CMP, LIPID #### [address] [address] LABORATORYOrdered By: SYSTEM SYSTEM on 10-08-2022 Albumin BCP dye [Mass/Vol] 3.9 G/dL Invalid Interpretation Code 3.4 - 4.8 G/dL AO ADM SS Albumin/Globulin [Mass ratio] 1.3 {ratio} Invalid Interpretation Code 1.1 - 2.5 ratio AO ADM SS ALP [Catalytic activity/Vol] 68 U/L Invalid Interpretation Code 40 - 135 U/L AO ADM SS ALT With P-5'-P [Catalytic activity/Vol] 24 U/L Invalid Interpretation Code 16 - 63 U/L AO ADM SS AST With P-5'-P [Catalytic activity/Vol] 28 U/L Invalid Interpretation Code 10 - 40 U/L AO ADM SS Bilirubin [Mass/Vol] 1.0 mg/dL Invalid Interpretation Code 0.2 - 1.0 mg/dL AO ADM SS Calcium [Mass/Vol] 8.7 mg/dL Invalid Interpretation Code 8.4 - 10.2 mg/dL AO ADM SS Chloride [Moles/Vol] 104 mmol/L Invalid Interpretation Code 98 - 107 mmol/L AO ADM SS CO2 [Moles/Vol] 29 mmol/L Invalid Interpretation Code 23 - 31 mmol/L AO ADM SS Creatinine [Mass/Vol] 1.16 mg/dL Invalid Interpretation Code 0.70 - 1.30 mg/dL AO ADM SS Electrolyte Balance 8.0 mEq/L Invalid Interpretation Code 4.0 - 15.0 mEq/L AO ADM SS GFR 73 ml/min/1.73sqm Invalid Interpretation Code AO Chemistry S GFR Non- 60 ml/min/1.73sqm Invalid Interpretation Code AO Chemistry S Globulin 3.0 G/dL Invalid Interpretation Code AO ADM SS Glucose [Mass/Vol] 85 mg/dL Invalid Interpretation Code 83 - 110 mg/dL AO ADM SS Potassium [Moles/Vol] 4.5 mmol/L Invalid Interpretation Code 3.5 - 5.1 mmol/L AO ADM SS Protein [Mass/Vol] 6.9 G/dL Invalid Interpretation Code 6.4 - 8.2 G/dL AO ADM SS Sodium [Moles/Vol] 141 mmol/L Invalid Interpretation Code 136 - 145 mmol/L AO ADM SS Urea nitrogen [Mass/Vol] 15 mg/dL Invalid Interpretation Code 7 - 18 mg/dL AO ADM SS Urea nitrogen/Creatinine [Mass ratio] 13 ratio Invalid Interpretation Code 7 - 27 ratio AO ADM SS LABORATORYOrdered By: Breonna Pena on 10-08-2022 Basophil, Absolute 0.0 103/mcL Invalid Interpretation Code 0.0 - 0.2 10^3/mcL AO Workflow SS Basophils/100 WBC (Bld) 0.4 % Invalid Interpretation Code 0.0 - 2.5 % AO Workflow SS Eosinophil, Absolute 0.2 103/mcL Invalid Interpretation Code 0.0 - 0.4 10^3/mcL AO Workflow SS Eosinophils/100 WBC (Bld) 2.6 % Invalid Interpretation Code 0.0 - 7.0 % AO Workflow SS Erythrocyte distribution width (RBC) [Ratio] 12.5 % Invalid Interpretation Code 11.5 - 14.5 % AO Workflow SS Hematocrit (Bld) [Volume fraction] 42.9 % Invalid Interpretation Code 42.0 - 52.0 % AO Workflow SS Hemoglobin (Bld) [Mass/Vol] 14.6 G/dL Invalid Interpretation Code 14.0 - 18.0 G/dL AO Workflow SS Lymphocyte, Absolute 1.2 103/mcL Invalid Interpretation Code 0.8 - 3.9 10^3/mcL AO Workflow SS Lymphocytes/100 WBC (Bld) 21.4 % Invalid Interpretation Code 10.0 - 50.0 % AO Workflow SS MCH (RBC) [Entitic mass] 31.1 pg Invalid Interpretation Code 27.0 - 31.2 pg AO Workflow SS MCHC 34.1 G/dL Invalid Interpretation Code 31.8 - 35.4 G/dL AO Workflow SS MCV (RBC) [Entitic vol] 91.3 fL Invalid Interpretation Code 80.0 - 94.0 fL AO Workflow SS Monocyte, Absolute 0.5 103/mcL Invalid Interpretation Code 0.2 - 1.0 10^3/mcL AO Workflow SS Monocytes/100 WBC (Bld) 8.4 % Invalid Interpretation Code 1.7 - 13.0 % AO Workflow SS Neutrophil, Absolute 3.9 103/mcL Invalid Interpretation Code 2.9 - 6.2 10^3/mcL AO Workflow SS Neutrophils/100 WBC (Bld) 67.2 % Invalid Interpretation Code 37.0 - 80.0 % AO Workflow SS Platelet mean volume (Bld) [Entitic vol] 9.0 fL Invalid Interpretation Code 7.4 - 10.4 fL AO Workflow SS Platelets (Bld) [#/Vol] 182 103/mcL Invalid Interpretation Code 130 - 400 10^3/mcL AO Workflow SS RBC (Bld) [#/Vol] 4.70 106/mcL Invalid Interpretation Code 4.04 - 6.13 10^6/mcL AO Workflow SS WBC (Bld) [#/Vol] 5.8 103/mcL Invalid Interpretation Code 4.6 - 10.8 10^3/mcL AO Workflow SS LABORATORYOrdered By: Risa Jaime on 10-08-2022 Cholesterol [Mass/Vol] 147 mg/dL Invalid Interpretation Code 0 - 200 mg/dL AO ADM SS Cholesterol in HDL [Mass/Vol] 41 mg/dL Invalid Interpretation Code 40 - 60 mg/dL AO ADM SS Cholesterol in LDL [Mass/Vol] 80 mg/dL Invalid Interpretation Code 0 - 130 mg/dL AO ADM SS Triglyceride [Mass/Vol] 132 mg/dL Invalid Interpretation Code 0 - 150 mg/dL AO ADM SS LIPIDon 10-08-2022 Cholesterol [Mass/Vol] 147 mg/dL Normal 0-200 [facility] ([place]) Comment on above: Result Comment: Chol esterol Reference Interval: Less than 200 Desirable 200-239 Borderline high risk 240 and above High risk Performed By: #### A JORGE, GFR, CBC, ADIFF, CMP, LIPID #### [address] [address] Cholesterol in HDL [Mass/Vol] 41 mg/dL Normal 40-60 [facility] ([place]) Comment on above: Performed By: #### A JORGE, GFR, CBC, ADIFF, CMP, LIPID #### [address] [address] Cholesterol in LDL [Mass/Vol] 80 mg/dL Normal 0-130 [facility] ([place]) Comment on above: Performed By: #### A JORGE, GFR, CBC, ADIFF, CMP, LIPID #### [address] [address] Triglyceride [Mass/Vol] 132 mg/dL Normal 0-150 [facility] ([place]) Comment on above: Result Comment: Trig lyceride Reference Interval: Less than 150 Normal 150-199 Borderline high risk 200-499 High risk 500 or higher Very high risk Performed By: #### A JORGE, GFR, CBC, ADIFF, CMP, LIPID #### [address] [address] Vital Signs Date Time Vital Sign Value Performing Clinician Sadaf rahman 04-05-2025 11:01-0400 Body height 170.18 cm Tejal Clark PA Work Phone: [facility] 04-05-2025 10:59-0400 Body weight 74.84 kg Tejal Clark PA Work Phone: [facility] 04-05-2025 10:59-0400 Diastolic blood pressure 85 mm[Hg] Tejal Clark PA Work Phone: [facility] 04-05-2025 10:59-0400 Heart rate 66 /min Tejal Clark PA Work Phone: [facility] 04-05-2025 10:59-0400 Respiratory rate 166 /min Tejal Clark PA Work Phone: [facility] 04-05-2025 10:59-0400 Systolic blood pressure 142 mm[Hg] Tejal Clark PA Work Phone: [facility] 01-26-2025 15:16-0400 Body temperature 97.8 [degF] Tejal Clark PA Work Phone: [facility] 01-26-2025 15:16-0400 Body weight 75.29 kg Tejal Clark PA Work Phone: [facility] 01-26-2025 15:16-0400 Diastolic blood pressure 78 mm[Hg] Tejal Clark PA Work Phone: [facility] 01-26-2025 15:16-0400 Heart rate 69 /min Tejal Clark PA Work Phone: [facility] 01-26-2025 15:16-0400 Respiratory rate 16 /min Tejal Clark PA Work Phone: [facility] 01-26-2025 15:16-0400 SaO2% (BldA) [Mass fraction] 100 % Tejal Clark PA Work Phone: [facility] 01-26-2025 15:16-0400 Systolic blood pressure 151 mm[Hg] Tejal Clark PA Work Phone: [facility] 09-27-2024 09:07-0500 Body temperature 97.3 [degF] Dr. Buddy Melara MD Work Phone: [facility] 09-27-2024 09:07-0500 Diastolic blood pressure 81 mm[Hg] Dr. Buddy Melara MD Work Phone: [facility] 09-27-2024 09:07-0500 Heart rate 59 /min Dr. Buddy Melara MD Work Phone: [facility] 09-27-2024 09:07-0500 Respiratory rate 16 /min Dr. Buddy Melara MD Work Phone: [facility] 09-27-2024 09:07-0500 SaO2% (BldA) [Mass fraction] 100 % Dr. Buddy Melara MD Work Phone: [facility] 09-27-2024 09:07-0500 Systolic blood pressure 176 mm[Hg] Dr. Buddy Melara MD Work Phone: [facility] 09-27-2024 06:32-0500 Body height 170.[address] Buddy Melara MD Work Phone: [facility] 09-27-2024 06:32-0500 Body mass index (BMI) [Ratio] 25.9 kg/m2 Dr. Buddy Melara MD Work Phone: [facility] 09-27-2024 06:32-0500 Body weight [address] Buddy Melara MD Work Phone: [facility] 09-24-2024 14:00-0500 Body temperature 97.8 [degF] Dr. Buddy Melara MD Work Phone: [facility] 09-24-2024 14:00-0500 Diastolic blood pressure 52 mm[Hg] Dr. Buddy Melara MD Work Phone: [facility] 09-24-2024 14:00-0500 Heart rate 60 /min Dr. Buddy Melara MD Work Phone: [facility] 09-24-2024 14:00-0500 Respiratory rate 16 /min Dr. Buddy Melara MD Work Phone: [facility] 09-24-2024 14:00-0500 SaO2% (BldA) [Mass fraction] 97 % Dr. Buddy Melara MD Work Phone: [facility] 09-24-2024 14:00-0500 Systolic blood pressure 110 mm[Hg] Dr. Buddy Melara MD Work Phone: [facility] 09-24-2024 07:59-0500 Body mass index (BMI) [Ratio] 25.9 kg/m2 Dr. Buddy Melara MD Work Phone: [facility] 09-24-2024 07:59-0500 Body weight [address] Buddy Melara MD Work Phone: [facility] 02-22-2023 10:07-0400 Body weight 72.[address] Buddy Melara Work Phone: [facility] 02-22-2023 10:07-0400 Diastolic blood pressure 79 mm[Hg] Dr. Buddy Melara Work Phone: [facility] 02-22-2023 10:07-0400 Heart rate 61 /min Dr. Buddy Melara Work Phone: [facility] 02-22-2023 10:07-0400 Respiratory rate 16 /min Dr. Buddy Melara Work Phone: [facility] 02-22-2023 10:07-0400 Systolic blood pressure 139 mm[Hg] Dr. Buddy Melara Work Phone: [facility] 02-22-2023 09:05-0400 Body height 170.[address] Buddy Melara Work Phone: [facility] 01-21-2023 13:32-0400 Body weight 73.[address] Buddy Melara Work Phone: [facility] 01-21-2023 13:32-0400 Diastolic blood pressure 77 mm[Hg] Dr. Buddy Melara Work Phone: [facility] 01-21-2023 13:32-0400 Heart rate 66 /min Dr. Buddy Melara Work Phone: [facility] 01-21-2023 13:32-0400 Respiratory rate 16 /min Dr. Buddy Melara Work Phone: [facility] 01-21-2023 13:32-0400 SaO2% (BldA) [Mass fraction] 100 % Dr. Buddy Melara Work Phone: [facility] 01-21-2023 13:32-0400 Systolic blood pressure 139 mm[Hg] Dr. Buddy Melara Work Phone: [facility] 01-07-2023 13:38-0400 SaO2% (BldA) [Mass fraction] 100 % Dr. Buddy Melara Work Phone: [facility] 01-07-2023 13:00-0400 Diastolic blood pressure 60 mm[Hg] Dr. Buddy Melara Work Phone: [facility] 01-07-2023 13:00-0400 Heart rate 59 /min Dr. Buddy Melara Work Phone: [facility] 01-07-2023 13:00-0400 Respiratory rate 15 /min Dr. Buddy Melara Work Phone: [facility] 01-07-2023 13:00-0400 Systolic blood pressure 98 mm[Hg] Dr. Buddy Melara Work Phone: [facility] 01-07-2023 12:00-0400 Body temperature 97.6 [degF] Dr. Buddy Melara Work Phone: [facility] 01-07-2023 10:19-0400 Body weight 71.[address] Buddy Melara Work Phone: [facility] 01-07-2023 05:16-0400 Body mass index (BMI) [Ratio] 24.7 kg/m2 Dr. Buddy Melara Work Phone: [facility] 12-09-2022 10:05-0400 Body temperature 98 [degF] Dr. Buddy Melara Work Phone: [facility] 12-09-2022 10:05-0400 Diastolic blood pressure 70 mm[Hg] Dr. Buddy Melara Work Phone: [facility] 12-09-2022 10:05-0400 Heart rate 92 /min Dr. Buddy Melara Work Phone: [facility] 12-09-2022 10:05-0400 Respiratory rate 14 /min Dr. Buddy Melara Work Phone: [facility] 12-09-2022 10:05-0400 SaO2% (BldA) [Mass fraction] 99 % Dr. Buddy Melara Work Phone: [facility] 12-09-2022 10:05-0400 Systolic blood pressure 128 mm[Hg] Dr. Buddy Melara Work Phone: [facility] 12-08-2022 15:00-0400 Diastolic blood pressure 67 mm[Hg] Dr. Buddy Melara Work Phone: [facility] 12-08-2022 15:00-0400 Heart rate 84 /min Dr. Buddy Melara Work Phone: [facility] 12-08-2022 15:00-0400 SaO2% (BldA) [Mass fraction] 99 % Dr. Buddy Melara Work Phone: [facility] 12-08-2022 15:00-0400 Systolic blood pressure 124 mm[Hg] Dr. Buddy Melara Work Phone: [facility] Encounters Encounter Date Encounter Type Care Provider Facility Start: 05-04-2025 ambulatory Ck Gould Facility:[facility] Start: 04-05-2025 End: 04-05-[address] Ck Gould MD -[facility] Work Phone: Start: 04-05-2025 End: 04-05-2025 ambulatory Tejal LOZA Work Phone: -[facility] Start: 01-26-2025 End: 01-26-2025 Patient encounter procedure Tejal LOZA -[facility] Work Phone: Start: 01-26-2025 End: 01-26-2025 ambulatory Tejal Clark Facility:[facility] Start: 01-11-2025 Non-patient / Non-visit Dr. Pedro barraza MD -[facility] Start: 01-11-2025 End: 01-11-[address] Buddy Melara MD Work Phone: [facility] Work Phone: Start: 01-11-2025 End: 01-11-2025 Patient encounter procedure Tejal LOZA -Cardiovascular Services Work Phone: Start: 01-11-2025 End: 01-11-2025 ambulatory Tejal Clark Facility:[facility] Start: 10-25-2024 Encounter for preprocedural cardiovascular examination [facility] Start: 10-09-2024 Encounter for preprocedural laboratory examination [facility] Start: 10-09-2024 ambulatory Jem Talavera lity:[facility] Start: 10-06-2024 End: 10-06-2024 ambulatory Buddy Melara Facility:[facility] Start: 10-06-2024 End: 10-06-2024 Non-patient / Non-visit Dr. Ck Gould MD -[facility] Work Phone: Start: 10-06-2024 End: 10-06-[address] Jem Henriquez MD -Pulmonary Services/Neurology Work Phone: Start: 10-06-2024 End: 10-06-2024 ambulatory Jem Henriquez Facility:[facility] Start: 10-05-2024 End: 10-05-[address] Jem Henriquez MD -Radiology, [facility] Work Phone: Start: 10-05-2024 End: 10-05-2024 ambulatory Buddy Melara Facility:[facility] Start: 09-27-2024 End: 09-27-2024 Admission to same day surgery center Dr. Jem Henriquez MD -[facility] Start: 09-27-2024 End: 09-27-2024 ambulatory Buddy Melara Facility:[facility] Start: 09-23-2024 End: 09-24-2024 Evaluation and management of inpatient Dr. Jem Henriquez MD -Medical Surgical 3 Work Phone: Start: 01-10-2024 Non-patient / Non-visit Dr. Mo Work Phone: [facility] Start: 01-10-2024 End: 01-10-[address] Buddy Melara Work Phone: [facility] Work Phone: Start: 01-10-2024 End: 01-10-[address] Buddy Melara Work Phone: [facility]-Cardiovascula r Services Work Phone: Start: 03-04-2023 Non-patient / Non-visit Dr. Mo Work Phone: [facility] Start: 03-04-2023 End: 03-04-[address] Buddy Melara Work Phone: [facility] Work Phone: Start: 03-04-2023 End: 03-04-[address] Buddy Melara Work Phone: [facility]-Cardiovascula [facility] Services Work Phone: Start: 02-22-2023 End: 02-22-[address] Buddy Melara Work Phone: [facility] Work Phone: Start: 01-28-2023 Non-patient / Non-visit Dr. Mo Work Phone: [facility] Start: 01-28-2023 End: 01-28-[address] Buddy Melara Work Phone: [facility] Work Phone: Start: 01-28-2023 End: 01-28-[address] [facility] Work [facility] Start: 01-21-2023 End: 01-21-[address] Buddy Melara Work Phone: [facility] Work Phone: Start: 01-07-2023 Non-patient / Non-visit Dr. Mo Work Phone: [facility] Start: 01-06-2023 Non-patient / Non-visit Dr. Mo Work Phone: [facility] Start: 01-06-2023 End: 01-07-2023 Evaluation and management of inpatient Dr. Buddy Melara Work Phone: [facility]-Intensive Care Unit Work Phone: Start: 12-31-2022 End: 12-31-2022 Non-patient / Non-visit Dr. Buddy Melara Work Phone: [facility] Work Phone: Start: 12-15-2022 Non-patient / Non-visit Dr. Mo Work Phone: [facility] Start: 12-15-2022 End: 12-15-[address] Buddy [facility] Work Phone: Start: 12-09-2022 End: 12-09-[address] Buddy Melara Work Phone: [facility] Work Phone: Start: 12-08-2022 End: 12-08-[address] Buddy Melara Work Phone: [facility] Work Phone: Start: 10-19-2022 End: 10-20-2022 ambulatory BUDDY MELARA MD Facility:B Start: 10-19-2022 End: 10-19-2022 Patient encounter procedure MELINA PORTILLO CORPORATE DIRECTOR-SHEET METAL WORKER HELPER [facility] Start: 10-08-2022 End: 10-09-2022 ambulatory BUDDY MELARA MD Facility:[facility] Start: 10-08-2022 End: 10-08-2022 Patient encounter procedure MELINA PORTILLO CORPORATE DIRECTOR-SHEET METAL WORKER HELPER [facility] Start: 12-22-2021 End: 12-22-2021 Patient encounter procedure [facility]-Radiology, [facility] Procedures Date Procedure Procedure Detail Performing Clinician Start: 10-06-2024 Measurement of renal function Dr. Buddy Melara MD Work Phone: Comment on above: GFR Calc Start: 10-05-2024 Cholesterol serum/wh ole blood total Dr. Buddy Melara MD Work Phone: Comment on above: Test not performed Start: 10-05-2024 External camera medi peter photography Dr. Buddy Melara MD Work Phone: Comment on above: Photograph will foll ow under a separate cover Start: 10-05-2024 Plain X-ray abdomen Dr. Buddy Melara MD Work Phone: Start: 09-27-2024 Plain X-ray abdomen Dr. Buddy Melara MD Work Phone: Start: 09-24-2024 Fluoroscopic guidance D r. Buddy Melara MD Work Phone: Start: 09-24-2024 Introduction to urin neeru tract Dr. Buddy Melara MD Work Phone: Start: 09-23-2024 Urnls dip stick/tabl et reagent auto microscopy Dr. Buddy Melara MD Work Phone: Start: 09-23-2024 CT of abdomen and pe lvis without contrast Dr. Buddy Melara MD Work Phone: Start: 09-23-[address] Buddy Melara MD Work Phone: Start: 09-23-2024 Measurement of renal function Dr. Buddy Melara MD Work Phone: Comment on above: GFR Calc Start: 03-04-2023 Radionuclide imaging of perfusion of myocardium under exercise stress Dr. Buddy Melara Work Phone: Start: 01-06-2023 Carotidstent (Left) Dr. Buddy Melara Work Phone: Start: 09-06-2022 History of carotid endarterectomy H/O carotid endarterectomy Dr. Buddy Melara MD Work Phone: Comment on above: Stent placed Start: 12-22-2021 Diagnostic radiograp hy of abdomen Start: 09-06-2019 Lithotomy MELINA FI SH CORPORATE DIRECTOR-SHEET [employer] WORKER HELPER Start: 10-22-2005 Cholecystectomy MELINA FISH CORPORATE DIRECTOR-SHEET [employer] WORKER HELPER Start: 09-06-2004 Coronary artery bypa ss grafts x 3 MELINA FISH CORPORATE DIRECTOR-SHEET [employer] WORKER HELPER Start: 12-28-2003 History of placement of stent for coronary artery disease History of heart artery stent Dr. Buddy Melara Work Phone: Comment on above: [id number], PCI-DE S-mLAD 12/28/2003 Start: 12-27-2003 Placement of stent ROXA NNE LINDSEY CORPORATE DIRECTOR-SHEET METAL WORKER HELPER Start: 09-06-1970 Vasectomy MELINA JO CORPORATE DIRECTOR-SHEET METAL WORKER HELPER Start: 09-06-1946 Tonsillectomy MELINA CERVANTES CORPORATE DIRECTOR-SHEET METAL WORKER HELPER History of carotid endarterectomy H/O carotid endarterectomy Dr. Buddy Melara Work Phone: History of coronary artery bypass grafting S/P CABG (coronary artery bypass graft)( Confirmed ) MELINA PORTILLO CORPORATE DIRECTOR-SHEET METAL WORKER HELPER Lithotripsy using laser LATISHA PORTILLO CORPORATE DIRECTOR-SHEET METAL WORKER HELPER Plan of Treatment Date Care Activity Detail Author Start: 09-27-2024 Anes lithotrp xtrcorp shock wave w/o water bath ANESTH KIDNEY STONE DESTRUCT [facility] Start: 09-27-2024 Lithotripsy xtrcorp shock wave FRAGMENTING OF KIDNEY STONE [facility] Start: 09-27-2024 Ambulation without limitation [facility] Start: 09-27-2024 Medication education [facility] Start: 09-27-2024 Planned voiding [facility] Start: 09-27-2024 Taking patient vital signs [facility] Start: 09-27-2024 [facility] Start: 09-27-2024 End: 09-27-2024 Patient discharge [facility] Start: 09-24-2024 Measuring intake and output [facility] Start: 09-24-2024 Patient discharge [facility] Start: 09-23-2024 Application of intermittent pneumatic compression device [facility] Start: 09-23-2024 Following clinical pathway protocol [facility] Start: 09-23-2024 Measuring intake and output [facility] Start: 09-23-2024 Provision of activity privileges [facility] [facility] Start: 09-23-2024 Assessment of risk of venous thromboembolism [facility] Start: 09-23-2024 Collection of urine and strain for calculus [facility] Start: 09-23-2024 Following clinical pathway protocol [facility] Start: 09-23-2024 Taking patient vital signs [facility] Start: 09-23-2024 Vital signs measurements [facility] Start: 09-23-2024 End: 09-23-2024 [facility] Start: 09-23-2024 Admission procedure [facility] Start: 09-23-2024 Hospital admission, emergency, from emergency room, medical nature [facility] Start: 01-07-2023 Patient discharge [facility] Start: 01-07-2023 [facility] Start: 01-06-2023 Following clinical pathway protocol [facility] Start: 01-06-2023 Ambulation without limitation [facility] Start: 01-06-2023 Assessment of risk of venous thromboembolism [facility] Start: 01-06-2023 Continuous pulse oximetry [facility] Start: 01-06-2023 Deep breathing and coughing exercises [facility] Start: 01-06-2023 Elevation of head of bed [facility] Start: 01-06-2023 Incentive spirometry [facility] Start: 01-06-2023 Insertion of catheter into peripheral vein [facility] Start: 01-06-2023 Measuring intake and output [facility] Start: 01-06-2023 Notification of physician [facility] Start: 01-06-2023 Oxygen therapy [facility] Start: 01-06-2023 Patient referral to dietitian [facility] Start: 01-06-2023 Providing care according to standard [facility] Start: 01-06-2023 Provision of activity privileges [facility] Start: 01-06-2023 Referral to occupational therapist [facility] Start: 01-06-2023 Referral to service [facility] Start: 01-06-2023 Taking patient vital signs [facility] Start: 01-06-2023 Vascular disease risk assessment [facility] Start: 01-06-2023 Vital signs measurements [facility] Start: 01-06-2023 [facility] Start: 01-06-2023 Admission procedure [facility] Start: 12-08-2022 Patient referral [facility] Work Phone: Patient referral [facility] Work Phone: XR Abdomen Single view [facility] Immunizations Immunization Date Immunization Notes Care Provider Fa cility 09-05-2019 influenza, injectabl e, quadrivalent, preservative free; Translations: [Fluarix PF Quadrivalent ] MELINA PORTILLO [employer]PORATE DIRECT[employer] [facility] 08-05-2018 influenza virus vacc ine, unspecified formulation MELINA LINDSEY [employer]PORATE [employer] [facility] [facility] 08-05-2018 pneumococcal conjuga te vaccine, 13 valent MELINA LINDSEY [employer] [facility] [facility] 05-21-2017 influenza virus vacc ine, unspecified formulation MELINA LINDSEY [employer]PORATE [employer] [facility] [facility] 06-04-2015 influenza virus vacc ine, unspecified formulation MELINA LINDSEY [employer]PORATE [employer] [facility] [facility] 08-07-2014 influenza virus vacc ine, unspecified formulation MELINA LINDSEY [employer]PORATE [employer] [facility] [facility] 06-30-2013 influenza virus vacc ine, unspecified formulation MELINA LINDSEY [employer]PORATE DIRECT[employer] [facility] 06-23-2005 pneumococcal polysaccharide vaccine, 23 valent MELINA LINDSEY [employer]PORATE [employer] [facility] Payers Date Payer Category Payer Self-pay [id number] 2022 Private Health Insurance [facility] [id number] 1940 Unknown [id number] 2.16.8 [id number] 1940 Unknown [id number] 2.16.8 [id number] Unknown [id number] 2.16.8 [id number] Unknown [id number] 2.16.8 [id number] Unknown [id number] 2.16.8 [id number] Unknown [id number] 2.16.8 [id number] Unknown [id number] 2.16.8 [id number] Unknown [id number] 2.16.8 [id number] Unknown [id number] 2.16.8 [id number] Unknown [id number] 2.16.8 [id number] Unknown [id number] 2.16.8 [id number] Unknown [id number] 2.16.8 [id number] Unknown [id number] 2.16.8 [id number] Social History Date Type Detail Facility Start: 01-31-2021 End: 02-22-2023 Tobacco smoking status ALIS Unknown if ever smoked [facility] Start: 04-09-2020 Non-smoker [facility] Start: 1940 Sex Assigned At Male A [facility] Start: 09-15-2019 End: 09-26-2024 Tobacco smoking status Never smoked tobacco (finding) [facility] Medical Equipment Procedure Code Equipment Code Equipment Origin al Text Equipment Identifier Dates Lithotripsy, ESWL STENT,URETERAL PIGTAIL [id number] FDA Start: 02-05-2021 Lithotripsy, ESWL STENT,URETERAL PIGTAIL 6FRx26 FDA Start: 02-05-2021 Lithotripsy, ESWL STENT,URETERAL PIGTAIL 6FRx26 FDA Start: 02-05-2021 Lithotripsy, ESWL STENT,URETERAL PIGTAIL 6FRx26 FDA Start: 02-05-2021 Lithotripsy, ESWL STENT,URETERAL PIGTAIL 6FRx26 FDA Start: 02-05-2021 Lithotripsy, ESWL STENT,URETERAL PIGTAIL 6FRx26 FDA Start: 02-05-2021 Cystoscopic insertion of stent ([id number]) Polymeric ureteral stent ()[id number] FDA Start: 09-24-2024 STENT,URETERAL 6 FR PIG 6X26 FDA Start: 04-05-2020 STENT,URETERAL 6 FR PIG 6X26 FDA Start: 04-05-2020 SUTURE,LIGA CLIP MED [id number] FDA Start: 01-06-2023 SUTURE,LIGA CLIP SM LT-100 FDA Start: 01-06-2023 Bare-metal carot id artery stent ()[id number] FDA Start: 01-06-2023 STENT,URETERAL 6 FR PIG 6X26 FDA Start: 04-05-2020 SUTURE,LIGA CLIP MED [id number] FDA Start: 01-06-2023 SUTURE,LIGA CLIP SM LT-100 FDA Start: 01-06-2023 STENT,URETERAL 6 FR PIG 6X26 FDA Start: 04-05-2020 SUTURE,LIGA CLIP MED [id number] FDA Start: 01-06-2023 SUTURE,LIGA CLIP SM LT-100 FDA Start: 01-06-2023 STENT,URETERAL 6 FR PIG 6X26 FDA Start: 04-05-2020 SUTURE,LIGA CLIP MED [id number] FDA Start: 01-06-2023 SUTURE,LIGA CLIP SM LT-100 FDA Start: 01-06-2023 STENT,URETERAL 6 FR PIG 6X26 FDA Start: 04-05-2020 SUTURE,LIGA CLIP MED [id number] FDA Start: 01-06-2023 SUTURE,LIGA CLIP SM LT-100 FDA Start: 01-06-2023 Goals Date Patient Goal Desired Activity /State Functional Status Date Assessment Result Facility 09-24-2024 [facility] Work Phone: 01-07-2023 Functional status Ambulates [facility] Work Phone: Mental Status Date Assessment Result Facility 09-27-2024 Cognitive function Voice/Name [facility] Work Phone: 09-24-2024 Cognitive function Voice/Name [facility] Work Phone: 09-24-2024 Cognitive function Appropriate;Jordan sammie [facility] Work Phone: 01-07-2023 Cognitive function Voice/Name [facility] Work Phone: Clinical Notes 09-23-2024 to 01-26-2025 Note Date & Type Note Facility 01-26-2025 Evaluation note Diagnosis Onset Date Resolution Left carotid artery stenosis chronic January 26, 2025 3 :00pm [facility] Work Phone: [phone]) [phone] [facility] Medical Records Department [address] [place] [address] History Physical Exam 09/27/24 0706 MR#: [id number] Acct: [id number] Name: STALIN MATA Rep #: [id number] : 1940 84 From: Jem Henriquez MD PCP: Dr. Buddy Melara MD Status:[facility] Location: [place] [address] HPI - General General Date of Service: 09/27/24 Chief Complaint: Right kidney stone HPI Narrative STALIN MATA, is a 84 M who presents for shockwave lithotripsy he has a stone on the right side he had a stent placed over the weekend for severe pain he has 2 stones plan to treat the stone today with shockwave lithotripsy. The patient is off all blood thinners. We talked about the procedure in the preoperative setting talked about the risk of the procedure include the risk of bleeding, risk of infection, risk that he may need to have more than 1 surgical procedure for the stone, possible that the stone may not break all the way, possible the stone fragments may get stuck in the ureter coming down. After the shockwave is done hopefully successful then I will see him next week with a KUB to remove the stone all questions were addressed organ to proceed with shockwave lithotripsy. [facility] Medical History (Updated 09/26/24 @ 16:08 by Oneyda Velazquez) Easy bruising History of hiatal hernia History of diverticulitis Gastric reflux Shortness of breath on exertion Hypertension History of echocardiogram Ventricular fibrillation Essential hypertension Atherosclerosis of coronary artery of [place] heart without angina pectoris Hyperlipidemia Postoperative pain Wears contact lenses Arthritis Impacted cerumen of both ears Acute sinusitis Acute conjunctivitis of both eyes Left ureteral calculus Blackout Non-smoker History of carotid artery disease Leg cramps History of stress test Cardiology follow-up encounter History of heart attack History of irregular heartbeat History of kidney stones Fatigue Heart disease Right ureteral calculus Home Medications ???Medication ???Instructions ???Recorded ???Last Taken ???Type aspirin 81 mg tablet,delayed 81 mg PO DAILY BLOOD THINNER 04/04/20 09/23/24 History release ascorbic acid (vitamin C) 500 mg 500 mg PO DAILY@0800 supplement 02/19/23 09/26/24 History tablet cholecalciferol (vitamin D3) 50 50 mcg PO DAILY SUPPLEMENT 02/21/24 09/26/24 History mcg (2,000 unit) tablet omeprazole magnesium 20 mg 20 mg PO DAILY GERD #90 caps 05/03/24 09/27/24 Rx capsule,delayed release metoprolol succinate 25 mg 12.5 mg PO DAILY BLOOD PRESSURE 09/23/24 09/26/24 History tablet,extended release 24 hr ciprofloxacin HCl 500 mg tablet 500 mg PO BID #10 tabs 09/24/24 09/27/24 Rx (Cipro) oxycodone 5 mg tablet 5 mg PO Q6H PRN pain 3 days #14 09/24/24 Unknown Rx tabs Allergy/AdvReac Type Severity Reaction Status Date / Time No Known Allergies Allergy Verified 09/27/24 06:31 Family History Brother Colon cancer Diabetes Myocardial infarction Mother Diabetes Myocardial infarction Father Heart disease Surgical History (Updated 09/26/24 @ 16:08 by Oneyda Velazquez) Hx of colonoscopy H/O carotid endarterectomy ( 01/2023) Hx of tooth extraction Hx of cystostomy History of heart artery stent (12/28/03) History of tonsillectomy History of cataract surgery History of cholecystectomy History of heart bypass surgery (09/30/04) Social History Smoking Status: Never smoker alcohol intake: never substance use type: does not use caffeine: No Vital Signs Vital Signs Vital Signs: 09/27/24 06:32 09/27/24 06:32 Temperature 97 F L Temperature Source Temporal Pulse Rate 60 Respiratory Rate 16 Respiratory Pattern Normal Blood Pressure 167/66 H Blood Pressure Mean 99 Blood Pressure Source Monitor Blood Pressure Position Semi-Fowlers Blood Pressure Location Left Arm Pulse Ox 100 Oxygen Delivery Method Room Air Weight Weight: 75 kg Body Mass Index (BMI) 25.9 Physical Exam Const alert and oriented x3 General Appearance: cooperative HEENT normocephalic, head/scalp atraumatic, EAC's normal and TM's normal bilaterally Eyes PERRL and EOMs intact bilaterally Pupil: sluggish Neck no lymphadenopathy, supple and no JVD General: trachea midline Lymph Lymphatic: no lymphadenopathy noted, lymphedema and lymphadenopathy Resp normal respiratory effort, normal air movement and clear to auscultation bilaterally Cardio regular rate, regular rhythm and peripheral pulses 2+ throughout GI soft to palpation, non-tender and non-distended Extremity normal capillary refill and no clubbing, cyanosis or edema General Extremity: no t (more content not included)...[facility] 09-23-2024 Evaluation note* Diagnosis Onset Date Resolution Status Admit Date Ureteral calculi acute September 23, 2024 12:37pm Hydroureter resolved September 23, 2024 12:37pm Intractable pain resolved September 23, 2024 12:37pm Uropathy, obstructive resolved [facility] 2024 12:37pm Ureteral calculi acute September 27, 2024 6:03am Hydroureter resolved September 27, 2024 6:03am Intractable pain resolved September 27, 2024 6:03am Uropathy, obstructive resolved Sep [facility] 2024 6:03am [facility] Work Phone: 1(669) 478-958701-18-2025 [facility] Medical Records Department [address] [place] [address] History Physical Exam 09/23/24 1234 MR#: [id number] Acct: [id number] Name: STALIN MATA Rep #: [id number] : 1940 84 From: Jem Henriquez MD PCP: Dr. Buddy Melara MD Status:REG ER Location: ED HPI - General General Date of Admission: 09/23/24 Chief Complaint: Large proximal right ureteral calculi HPI Narrative STALIN MATA, is a 84 M who presents To the emergency room with severe right flank pain, CT scan done demonstrates a 9 mm stone, causing obstruction of the right kidney patients received multiple courses of pain medicine IV morphine with no relief, ER doctor physician called me Patient would be admitted for pain control plan. Take the patient tomorrow to surgery for a cystoscopy and right stent placement [facility] Medical History Ventricular fibrillation Hypothyroidism Essential hypertension Atherosclerosis of coronary artery of [place] heart without angina pectoris Hyperlipidemia Postoperative pain Wears contact lenses Arthritis Kidney stones Shortness of breath on exertion Impacted cerumen of both ears Acute sinusitis Acute conjunctivitis of both eyes Left ureteral calculus Easy bruising Excessive bleeding Blackout Gastric reflux Non-smoker History of carotid artery disease Leg cramps History of stress test Cardiology follow-up encounter History of heart attack History of irregular heartbeat History of kidney stones Fatigue Heart disease Right ureteral calculus Home Medications ???Medication ???Instructions ???Recorded ???Last Taken ???Type aspirin 81 mg tablet,delayed 81 mg PO DAILY BLOOD THINNER 04/04/20 01/06/23 History release ascorbic acid (vitamin C) 500 mg 500 mg PO DAILY@0800 supplement 02/19/23 Unknown History tablet cholecalciferol (vitamin D3) 50 50 mcg PO DAILY 02/21/24 Unknown History mcg (2,000 unit) tablet omeprazole magnesium 20 mg 20 mg PO DAILY GERD #90 caps 05/03/24 Unknown Rx capsule,delayed release Allergy/AdvReac Type Severity Reaction Status Date / Time No Known Allergies Allergy Verified 09/23/24 10:11 Family History Brother Colon cancer Diabetes Myocardial infarction Mother Diabetes Myocardial infarction Father Heart disease Surgical History H/O carotid endarterectomy ( 01/2023) Hx of tooth extraction Hx of cystostomy History of heart artery stent (12/28/03) History of tonsillectomy History of cataract surgery History of cholecystectomy History of heart bypass surgery (09/30/04) Social History Smoking Status: Never smoker alcohol intake: never substance use type: does not use caffeine: No Vital Signs Vital Signs Vital Signs: 09/23/24 10:12 09/23/24 11:11 09/23/24 12:00 Temperature 98.9 F Temperature Source Oral Pulse Rate 72 74 74 Respiratory Rate 18 Blood Pressure 154/76 H 124/89 H 120/60 Blood Pressure Mean 102 100 80 Pulse Ox 100 99 99 Oxygen Delivery Method Room Air Weight Weight: 72.847 kg Body Mass Index (BMI) 25.1 Results Medical Records Data Attestation: I reviewed the patient's medical records Lab / Micro Data 09/23/24 10:30 09/23/24 10:30 Labs: Laboratory Results - last 24 hr 09/23/24 10:30: WBC 5.7, RBC 4.64, Hgb 14.5, Hct 42.3, MCV 91.2, MCH 31.3, MCHC 34.3, RDW Std Deviation 41.1, RDW Coeff of Marine 12.3, Plt Count 168, MPV 10.3, Immature Gran % (Auto) 0.900, Neut % (Auto) 79.6 H, Lymph % (Auto) 12.8 L, [place] % (Auto) 4.4, Eos % (Auto) 1.6, Baso % (Auto) 0.7, Absolute Neuts (auto) 4.6, Absolute Lymphs (auto) 0.73 L, Nucleated RBC % 0, Sodium 138, Potassium 3.8, Chloride 105, Carbon Dioxide 26.0, Anion Gap 7, BUN 13, Creatinine 1.59 H, Estim Creat Clear Calc 32.33, Est GFR (MDRD) Af Amer 54 L, Est GFR (MDRD) Non-Af 44 L, BUN/Creatinine Ratio 8.2 L, G lucose 188 H, Calcium 9.2 09/23/24 11:35: Urine Color Yellow, Urine Clarity Clear, Urine pH 7.0, Ur Specific [place] 1.010, U rine Protein 15 H, Urine Glucose (UA) Normal, Urine Ketones Negative, Urine Occult Blood 50 H, Urine Nitrite Negative, Urine Bilirubin Negative, Urine Urobilinogen Normal, Ur Leukocyte Esterase 25 H, Urine RBC 0-5 SEEN, Urine WBC 0 SEEN, Ur Squamous Epith Cells 0 SEEN, Urine Bacteria 0 SEEN, Urine Mucus 0 SEEN Imaging Radiology Impression Abdomen/Pelvis CT 09/23/24 10:42 IMPRESSION: 1. Obstructive 9 mm proximal right ureteral stone. 2. Bilateral nephrolithiasis. 3. Diverticulosis coli. 4. Small hiatal hernia. 5. Mild interstitial lung disease. (more content not included)...[facility] Appointment Date:10/19/2022 11:30:00 AM Scheduled Provider: Location:[facility] Appointment Type:CT Angiography Neck w/ Contrast Appointment Date:10/18/2023 10:30:00 AM Scheduled Provider:MELINA PORTILLO Location:[facility] Appointment Type:CV OV Future Scheduled Tests Radiology* CT Angiography Neck w/ Contrast 10/19/22 [facility] Evaluation + Plan note Future Appointments Appointment Date:10/18/2023 10:30:00 AM Scheduled Provider:MELINA PORTILLO Location:[facility] Appointment Type:CV OV [facility] Evaluation noteNo assessment information available [facility] Work Phone: Evaluation note* Diagnosis Onset Date Resolution Status Left carotid artery stenosis chronic Impacted cerumen of both ears acute Acute conjunctivitis of both eyes resolved Acute otitis media, left res olved Acute sinusitis resolved Left carotid artery stenosis chronic Left carotid artery stenosis chronic H/O carotid endarterectomy a cute Hyperlipidemia acute Essential hypertension chron ic History of heart bypass surgery September 30, 2004 chronic [facility] Work Phone: Hospital course Narrative No data available for this section [facility] Hospital Discharge instructions No data available for this section [facility] Progress note No data available for this section [facility] Reason for referral (narrative)No reason for [facility] Work Phone: Advance Directives No Advanced Directives Records Found Advance Directive Response Recorded Date/ Time Living Will Yes January 31, 2021 9 :19am Power of Ornamental Iron Erector Yes January 31, 2021 9:19am Advance Directive Response Recorded Date/ Time Name of Medical Power of Ornamental Iron Erector Patricia Staley January 06, 2023 11:12am Living Will Yes January 06, 2023 11 :12am Power of Ornamental Iron Erector Yes January 06, 2023 11:12am Advance Directive Response Recorded Date/ Time Living Will Yes January 06, 2023 11 :12am Power of Ornamental Iron Erector Yes January 06, 2023 11:12am Advance Directive Response Recorded Date/ Time Living Will Yes September 26 4:59pm Do you have a Healthcare Power of Ornamental Iron Erector? Yes September 26, 2024 4:59pm Name of Medical Power of Ornamental Iron Erector PATRICIA September 26, 2024 4:59pm Living Will Yes January 06, 2023 11 :12am Do you have a Healthcare Power of Ornamental Iron Erector? Yes January 06, 2023 11:12am Living Will No September 23 3:05pm Do you have a Healthcare Power of Ornamental Iron Erector? 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 Yes January 06, 2023 11:12am Summary Purpose Family History No Family History Records Found Relationship Condition Age at Onset Recorded Date/T carol brother Malignant neoplasm of colon Unknown Diabetes mellitus Unknown Myocardial infarction Unknown mother Diabetes mellitus Unknown father Cardiac disease Unknown Chief Complaint and Reason for Visit Chief Complaint left carotid artery CONCERN FOR SINUS INFECTION/BILAT EAR/EYE CONCERNS CAROTID STENOSIS PREOP LT CAROTID STENT, TCAR LT CAROTID STENT, TCAR LT CAROTID STENT, TCAR 2-3 WK FU Occlusion and stenosis of left carotid artery HI (MELARA) CAD Coronary artery disease Reason for Visit Left carotid artery stenosis Impacted cerumen of both ears Acute conjunctivitis of both eyes Acute otitis media, left Acute sinusitis Left carotid artery stenosis Left carotid artery stenosis H/O carotid endarterectomy Hyperlipidemia Essential hypertension History of heart bypass surgery Chief Complaint S/P L TCAR Chief Complaint Admit Date KIDNEY STONE September 23, 2024 1 2:37pm ESWL RIGHT September 27, 2024 6 :03am PRE-OP EKG/LAB October 06, 2024 7 :37am PREOP October 06, 2024 7 :47am Occlusion and stenosis of left carotid a rtery January 11, 2025 10:54am Reason for Visit Admit Date Ureteral calculi September 23, 2024 1 2:37pm Hydroureter September 23, 2024 1 2:37pm Intractable pain September 23, 2024 1 2:37pm Uropathy, obstructive September 23, 2024 12:37pm Ureteral calculi September 27, 2024 6 :03am Hydroureter September 27, 2024 6 :03am Intractable pain September 27, 2024 6 :03am Uropathy, obstructive September 27, 2024 6:03am Chief Complaint Admit Date Occlusion and stenosis of left carotid a rtery January 11, 2025 10:54am 1 Y FU January 26, 2025 3:00p m 1 Y FU April 05, 2025 10:3 7am Reason for Visit Admit Date Left carotid artery stenosis January 26, 2 025 3:00pm Additional Source Comments Goals (unrecognized section and content) Goals may be documented in a n alternate section No data available for this section No data available for this sectionGoals may be documented in an alternate sectionGoals may be documented in an alternate section Care Team (unrecognized sect ion and content) Care Team Personnel Name: BUDDY MELARA MD Position: P4 Physician - Primary Care Member Role: Primary Care Physician Address: Address: [address] [place] [address]- Care Team Related Persons Name: PATRICIA STALEY Care Team Personnel Name: BUDDY MELARA MD Position: P4 Physician - Primary Care Member Role: Primary Care Physician Address: Address: [address] [place] [address] Care Team Related Persons Name: PATRICIA STALEY (unrecognized sect ion and content) No Status Records FoundNo Status Records Found INFORMATION SOURCE (unrecogn ized section and content) DATE CREATED AUTHOR 10/24/2022 [facility] ([place]) DATE CREATED AUTHOR AUTHOR'S VANESSA ATION 04/24/2025 [facility] Care Teams (unrecognized sec tion and content) Team Status: Active Member Role Status Dates Dr. Buddy Melara MD Primary Care Provider Active Team Status: Inactive Member Role Status Dates Dr. Buddy Melara MD Primary Care Provider Active Start: September 23, 2024 End: September 24, 2024 Dr. Nikita Kumar MD Emergency Provider Active S tart: September 23, 2024 End: September 24, 2024 Dr. Jem Henriquez MD Admit Provider Active Start: September 23, 2024 End: September 24, 2024 Dr. Jem Henriquez MD Attending Provider Active Start: September 23, 2024 End: September 24, 2024 Team Status: Inactive Member Role Status Dates Dr. Buddy Melara MD Primary Care Provider Active Start: September 27, 2024 End: September 27, 2024 Dr. Jem Henriquez MD Attending Provider Active Start: September 27, 2024 End: September 27, 2024 Dr. Jem Henirquez MD Referring Provider Active Start: September 27, 2024 End: September 27, 2024 Team Status: Inactive Member Role Status Dates Dr. Buddy Melara MD Primary Care Provider Active Start: October 05, 2024 End: October 05, 2024 Dr. Jem Henriquez MD Attending Provider Active Start: October 05, 2024 End: October 05, 2024 Dr. Jem Henriquez MD Referring Provider Active Start: October 05, 2024 End: October 05, 2024 Team Status: Inactive Member Role Status Dates Dr. Buddy Melara MD Primary Care Provider Active Start: October 06, 2024 End: October 06, 2024 Dr. Jem Henriquez MD Attending Provider Active Start: October 06, 2024 End: October 06, 2024 Dr. Jem Henriquez MD Referring Provider Active Start: October 06, 2024 End: October 06, 2024 Team Status: Active Member Role Status Dates Dr. Buddy Melara MD Primary Care Provider Active Start: October 06, 2024 End: October 06, 2024 Dr. Ck Gould MD Attending Provider Active S tart: October 06, 2024 End: October 06, 2024 Dr. Jem Henriquez MD Referring Provider Active Start: October 06, 2024 End: October 06, 2024 Team Status: Inactive Member Role Status Dates DAGO Brownlee Attending Provider Active Star t: January 11, 2025 End: January 11, 2025 DAGO Brownlee Referring Provider Active Star t: January 11, 2025 End: January 11, 2025 Dr. Buddy Melara MD Primary Care Provider Active Start: January 11, 2025 End: January 11, 2025 Team Status: Active Member Role Status Dates Dr. Buddy Melara MD Primary Care Provider Active Start: January 11, 2025 Dr. Pedro Ruiz MD Attending Provider Active S tart: January 11, 2025 DAGO Brownlee Referring Provider Active Star t: January 11, 2025 Team Status: Active Member Role Status Dates Dr. Buddy Melara MD Primary Care Provider Active Dr. Pedro Ruiz MD Attending Provider Active Team Status: Inactive Member Role Status Dates Dr. Buddy Melara MD Primary Care Provider Active DAGO Brownlee Attending Provider, Referring Provid er Active Team Status: Inactive Member Role Status Dates Dr. Buddy Melara MD Primary Care Provider, Referrin g Provider Active Dr. Pedro Ruiz MD Attending Provider Active Team Status: Inactive Member Role Status Dates Dr. Buddy Melara MD Primary Care Provider, Referrin g Provider Active DAGO Avina Attending Provider Active Team Status: Inactive Member Role Status Dates Dr. Buddy Melara MD Primary Care Provider, Referrin g Provider Active Dr. Ck Gould MD Attending Provider Active Team Status: Active Member Role Status Dates Dr. Buddy Melara MD Primary Care Provider Active Dr. Pedro Ruiz MD Attending Provider Active DAGO Gonzalez Referring Provider Active Team Status: Active Member Role Status Dates Dr. Buddy Melara MD Primary Care Provider Active Dr. Ck Gould MD Attending Provider Active Dr. Pedro Ruiz MD Referring Provider Active Team Status: Active Member Role Status Dates Dr. Buddy Melara MD Primary Care Provider Active Dr. Pedro Ruiz MD Admit Provider, Att ending Provider, Referring Provider, Other Provider Active Team Status: Active Member Role Status Dates Dr. Buddy Melara MD Primary Care Provider Active Dr. Ck Gould MD Attending Provider, Referring Provider, Other Provider Active Team Status: Inactive Member Role Status Dates Dr. Buddy Melara MD Primary Care Provider Active DAGO Gonzalez Attending Provider, Referring Provider Active Team Status: Inactive Member Role Status Dates Dr. Buddy Melara MD Primary Care Provider Active Dr. Pedro Ruiz MD Admit Provider, Att ending Provider, Referring Provider Active Team Status: Active Member Role Status Dates Dr. Buddy Melara MD Primary Care Provider Active DAGO Gonzalez Attending Provider, Referring Provider Active Team Status: Inactive Member Role Status Dates Dr. Buddy Melara MD Primary Care Provider Active Dr. Ck Gould MD Attending Provider, Referring Pro vider Active Team Status: Active Member Role/Relationship Status Dates Dr. Buddy Melara MD Primary Care Provider Active Team Status: Inactive Member Role/Relationship Status Dates DAGO Brownlee Attending Provider Active Star t: January 11, 2025 End: January 11, 2025 DAGO Brownlee Referring Provider Active Star t: January 11, 2025 End: January 11, 2025 Dr. Buddy Melara MD Primary Care Provider Active Start: January 11, 2025 End: January 11, 2025 Team Status: Active Member Role/Relationship Status Dates Dr. Buddy Melara MD Primary Care Provider Active Start: January 11, 2025 Dr. Pedro Ruzi MD Attending Provider Active S tart: January 11, 2025 DAGO Brownlee Referring Provider Active Star t: January 11, 2025 Team Status: Inactive Member Role/Relationship Status Dates Dr. Buddy Melara MD Primary Care Provider Active Start: January 26, 2025 End: January 26, 2025 Dr. Buddy Melara MD Referring Provider Active Start: January 26, 2025 End: January 26, 2025 DAGO Brownlee Attending Provider Active Star t: January 26, 2025 End: January 26, 2025 Team Status: Inactive Member Role/Relationship Status Dates Dr. Ck Gould MD Attending Provider Active S tart: April 05, 2025 End: April 05, 2025 Dr. Buddy Melara MD Primary Care Provider Active Start: April 05, 2025 End: April 05, 2025 Dr. Buddy Melara MD Referring Provider Active Start: April 05, 2025 End: April 05, 2025 FOR RECORDS PERTAINING TO PATIENTS WHO ARE OR HAVE BEEN ENROLLED IN A CHEMICAL DEPENDENCY/SUBSTANCEABUSE PROGRAM, SOME INFORMATION MAY BE OMITTED. This clinical summary was aggregated from multiple sources. Caution should be exercised in using it in the provision of clinical care. This summary normalizes information from multiple sources, and as a consequence, information in this document may materially change the coding, format and clinical context of patient data. In addition, data may be omitted in some cases. CLINICAL DECISIONS SHOULD BE BASED ON THE PRIMARY CLINICAL RECORDS. [email or web address] provides no warranty or guarantee of the accuracy or completeness of information in this document.
--- NOTE | 2025-05-07 14:06 | STRESSREP ---
Stress Test Report Exercise myocardial perfusion stress test. 85-year-old man with a history of coronary disease. Stress protocol: Resting EKG demonstrates normal sinus rhythm with a rate of 60 bpm resting blood pressure is 122/82 mmHg. The patient exercised according to the regular Rivera protocol for a total duration of 6 minutes attaining a maximum heart rate of 141 bpm which was 104% of maximum predicted heart rate; the maximum workload was 7.2 metabolic equivalents. At rest there were no ST or T wave changes noted to suggest ischemia and at peak exercise upsloping ST changes only were noted which did not meet the criteria for ischemia. No clinical angina was noted the test was terminated due to the target heart rate being achieved/fatigue. The peak blood pressure was 178/80 mmHg. Rate-pressure product was 19,000. Myocardial perfusion protocol. 11 mCi of technetium 99m sestamibi was injected at rest. The patient exercised according to regular Rivera protocol for total duration of 6 minutes and at peak exercise 36 mCi of technetium 99m sestamibi was injected stress images were obtained stress and rest images were reconstructed in comparing the short axis vertical long and horizontal long axis. Gated images were also obtained. Perfusion SPECT analysis: Review of the stress images demonstrate normal uptake of tracer noted in all areas of the myocardium. The resting images similarly demonstrate normal uptake of tracer noted in all areas of the myocardium. No areas of reversibility are noted to suggest ischemia no previous infarct was noted. Gated SPECT analysis: The gated ejection fraction is 79%. Conclusion: Normal exercise myocardial perfusion stress test at a moderate workload.
== END | disposition home or self-care (01) ==
LOC: CVS 06:54
PROVIDERS: PCP Family Medicine; Referring Provider Internal Medicine Cardiovascular Disease; Visit Provider Internal Medicine Cardiovascular Disease
DX: I25.10 Atherosclerotic heart disease of native coronary artery without angina pectoris (principal); I10 Essential (primary) hypertension
CPT/HCPCS: 78452; 93017; A9500; A4216